=== PATIENT | female | born 1960 | race African-American/Black ===

== ENCOUNTER → 2019-06-14 | Day surgery (SDC) | payer MEDICARE ==
[~2019-06-14] MED LIST: ATORVASTATIN CA10 MG PO; CYMBALTA30 MG PO; FENTANYL CITRATE/PF 100MCG/2 ML INJ ONE; FLAGYL250 MG PO; GABAPENTIN300 MG PO; METOPROLOL SUCC25 MG PO; MIDAZOLAM HCL 2 MG/2 ML VIAL ONE; PANTOPRAZOLE SO40 MG PO; PROPOFOL IV EMULSION 10 MG/ML 20 ML VIAL ONE; TIZANIDINE HCL4 MG PO
--- OUTSIDE RECORDS SUMMARY | 2019-06-14 08:31 | XMS REPORT ---
Author Author [facility] Address Unknown Phone Unavailable Care Team Providers Care Order Administrator Name Role Phone Unavailable Unavailable Payers Payer Name Policy Type Policy Number Effective Date Expiration Date Problems This patient has no known problems. Allergies, Adverse Reactions, Alerts Allergy Name Allergy Type Status Severity Reaction(s) Onset Date Inactive Date Treating Clinician Comments Iodinated Contrast Media DA Active PA 2019-05-10 00:00:00 Heparin Analogues DA Active MO 2019-05-10 00:00:00 Iodinated Contrast- Oral and IV Dye DA Active PA 2019-03-08 00:00:00 Heparin Analogues DA Active MO 2018-10-14 00:00:00 Heparin Analogues DA Active MO 2018-09-27 00:00:00 Heparin Analogues DA Active MO 2018-07-12 00:00:00 No Known Drug Allergies DA Active U 2018-07-12 00:00:00 Heparin Analogues DA Active MO 2018-04-09 00:00:00 Heparin Analogues DA Active MO 2017-01-25 00:00:00 Medications This patient has no known medications. Encounters Start Date/Time End Date/Time Encounter Type Admission Type Attending Clinicians Care Facility Care Department Encounter ID 2019-06-04 09:40:44 Outpatient [facility] [id number] 2019-05-31 16:47:15 Outpatient [facility] 7503 2019-03-13 11:15:00 2019-03-13 11:15:00 Emergency E [facility] [place] [facility] Results Test Description Test Time Test Comments Text Results Atomic Results Result Comments COMPREHENSIVE METABOLIC PANEL 2019-05-10 17:59:00 SODIUM (test code=NA) 139 mEq/L 134-147 POTASSIUM (test code=K) 3.6 mEq/L 3.4-5.0 CHLORIDE (test code=CL) 106 mEq/L 100-108 CARBON DIOXIDE (test code=CO2) 30 mEq/L 21-33 ANION GAP (test code=GAP) 7 0-20 GLUCOSE (test code=GLU) 100 mg/dL 70-110 BLOOD UREA NITROGEN (test code=BUN) 17 mg/dL 7-18 GLOMERULAR FILTRATION RATE (test code=GFR) 55.6 90-95 Units of measure=ml/min/1.73 m2 CREATININE (test code=CREAT) 1.2 mg/dL 0.6-1.3 TOTAL PROTEIN (test code=PROT) 7.2 g/dL 6.4-8.2 ALBUMIN (test code=ALB) 3.90 g/dL 3.4-5.0 CALCIUM (test code=CA) 9.2 mg/dL 8.0-10.5 BILIRUBIN TOTAL (test code=BILT) 0.4 MG/DL <1.5 SGOT/AST (test code=AST) 17 IUnit/L 15-37 SGPT/ALT (test code=ALT) 30 IUnit/L 15-65 ALKALINE PHOSPHATASE TOTAL (test code=ALKP) 96 IUnit/L 20-125 - CT HEAD/BRAIN W/O [id number] 17:54:00 Name: CAMMY RICHARDSON [facility] : 1960 Age/S: 59 / F [address] [place] [address] Unit #: [id number] Loc: [place] [address] Phys: Denzel Chen CLINICAL RESEARCH TECHNICIAN Acct: [id number] Dis Date: Status: REG ER PHONE #: [phone] Exam Date: 05/10/2019 174 FAX #: [phone] Reason: posterior headache EXAMS: CPT CODE: [id number] CT HEAD/BRAIN W/O CONT 12917 Clinical Indication: Posterior headache. Comparison: Prior CT brain study dated 04/07/2018 TECHNIQUE: CT images were obtained from the foramen magnum to the vertex without the use of intravenous contrast on a multidetector CT. Coronal and sagittal reconstructions were obtained. CT imaging performed at this location utilizes radiation dose optimization techniques which include one or more of the following: -Automated exposure control -Adjustment of the mA and/or kV according to patient size -Use of iterative reconstruction technique CT Radiation Dose DLP 419.7 mGy-cm FINDINGS: BRAIN PARENCHYMA: There are normal fink-white interfaces, sulci and gyri. There are no focal mass lesions on this noncontrast head CT. There is no mass effect, midline shift or edema. There are no intra-axial or extra- axial fluid collections, intraventricular or intraparenchymal hemorrhage. The pineal, sellar, brainstem, cerebellum and skull base regions appear unremarkable. VENTRICLES: The lateral ventricles, third and fourth ventricles appear unremarkable. The basilar cisterns are normal. ORBITS, MASTOIDS AND PARANASAL SINUSES: The visualized orbits sinuses are unremarkable. Patchy mucosal thickening in the ethmoid air cells bilaterally. The mastoid air cells are clear. SKULL: There are no osseous abnormalities. If there is further concern for intracranial pathology or acute stroke, MRI of the brain may be performed for complete assessment. IMPRESSION: 1. Unre markable noncontrast head CT with no mass, hemorrhage or subacute stroke . 2. Bilateral ethmoid sinusitis. SL: MACKENZIE PAGE 1 Signed Report (CONTINUED) Name: CAMMY RICHARDSON [facility] : 1960 Age/S: 59 / F [address] [place] [address] Unit #: [id number] Loc: [place] [address] Phys: Denzel Chen NP Acct: [id number] Dis Date: Status: REG ER PHONE #: [phone] Exam Date: 05/10/2019 1741 FAX #: [phone] Reason: posterior headache EXAMS: CPT CODE: [id number] CT HEAD/BRAIN W/O CONT 44035 < Continued> at 4857 Reported and signed by: Madai Sen M.D. CC: Maria Del Carmen Roman MD; Denzel Chen NP Technologist:RT Chano(R)(CT) CTDI: DLP: Trnscb Date/Time: 05/10/2019 (9145) [email or web address] Orig Print D/T: S: 05/10/2019 (6441) PAGE 2 Signed Report COMPREHENSIVE METABOLIC [id number] 17:52:00* Test Item Value Reference Range Comments SODIUM (test code=NA) 139 mEq/L 134-147 POTASSIUM (test code=K) 3.6 mEq/L 3.4-5.0 CHLORIDE (test code=CL) 106 mEq/L 100-108 CARBON DIOXIDE (test code=CO2) 30 mEq/L 21-33 ANION GAP (test code=GAP) 7 0-20 GLUCOSE (test code=GLU) 100 mg/dL 70-110 BLOOD UREA NITROGEN (test code=BUN) 17 mg/dL 7-18 GLOMERULAR FILTRATION RATE (test code=GFR) 90-95 CREATININE (test code=CREAT) mg/dL 0.6-1.3 TOTAL PROTEIN (test code=PROT) g/dL 6.4-8.2 ALBUMIN (test code=ALB) g/dL 3.4-5.0 CALCIUM (test code=CA) 9.2 mg/dL 8.0-10.5 BILIRUBIN TOTAL (test code=BILT) MG/DL <1.5 SGOT/AST (test code=AST) IUnit/L 15-37 SGPT/ALT (test code=ALT) IUnit/L 15-65 ALKALINE PHOSPHATASE TOTAL (test code=ALKP) IUnit/L 20-125 CBC W/AUTO [id number] 17:50:00* Test Item Value Reference Range Comments WHITE BLOOD CELL (test code=WBC) 7.24 x10 3/uL 4.5-11.0 RED BLOOD CELL (test code=RBC) 3.96 x10 6/uL 3.54-5.02 HEMOGLOBIN (test code=HGB) 12.6 g/dL 11.0-15.0 HEMATOCRIT (test code=HCT) 39.4 % 33.0-45.0 MEAN CELL VOLUME (test code=MCV) 99.5 fL 81.0-99.0 MEAN CELL HGB (test code=MCH) 31.8 pg 27.0-33.0 MEAN CELL HGB CONCETRATION (test code=MCHC) 32.0 g/dL 33.0-37.0 RED CELL DISTRIBUTION WIDTH CV (test code=RDW) 13.2 % 11.5-14.5 RED CELL DISTRIBUTION WIDTH SD (test code=RDW-SD) 48.7 fL 37.0-54.0 PLATELET COUNT (test code=PLT) 350 x10 3/uL 150-400 MEAN PLATELET VOLUME (test code=MPV) 10.1 fL 7.0-9.0 NEUTROPHIL % (test code=NT%) 42.9 % 56.0-77.0 IMMATURE GRANULOCYTE % (test code=IG%) 0.1 % 0.0-2.0 LYMPHOCYTE % (test code=LY%) 45.7 % 14.0-32.0 MONOCYTE % (test code=MO%) 6.8 % 4.8-9.0 EOSINOPHIL % (test code=EO%) 4.1 % 0.3-3.7 BASOPHIL % (test code=BA%) 0.4 % 0.0-2.0 NUCLEATED RBC % (test code=NRBC%) 0.0 % 0-0 NEUTROPHIL # (test code=NT#) 3.10 x10 3/uL 2.0-7.6 IMMATURE GRANULOCYTE # (test code=IG#) 0.01 x10 3/uL 0.00-0.03 LYMPHOCYTE # (test code=LY#) 3.31 x10 3/uL 1.0-3.8 MONOCYTE # (test code=MO#) 0.49 x10 3/uL 0.1-0.8 EOSINOPHIL # (test code=EO#) 0.30 x10 3/uL 0.0-0.2 BASOPHIL # (test code=BA#) 0.03 x10 3/uL 0.0-0.2 NUCLEATED RBC # (test code=NRBC#) 0.00 x10 3/uL 0.0-0.1 MANUAL DIFF REQUIRED (test code=MDIFF) NO - XR CHEST 2 [id number] 17:20:00 FAX: Maria Del Carmen Roman [phone] [place]: St: PRE FAX: Denzel Chen NP [phone] Name: CAMMY RICHARDSON [facility] : 1960 Age/S: 59/F [address] [facility] Unit #: [id number] Loc: [place] [address] Phys: Denzel Chen NP Acct: [id number] Dis Date: Status: PRE ER PHONE #: [phone] Exam Date: 05/10/2019 1658 FAX #: [phone] Reason: cp EXAMS: CPT CODE: [id number] XR CHEST 2 V 98491 Clinical Indication: Chest pain. Comparison: 01/15/2019. Impression: Chest, 2 views. Mild left basilar atelectasis. No consolidation, pleural effusion, or pneumothorax. Cardiomediastinal silhouette is unremarkable. No acute osseous abnormality. SL: [id number] at 1720 Reported and signed by: Aydin Paz M.D. CC: Maria Del Carmen Roman MD; Denzel Chen NP Technologist: RT Gerry(Tabitha) Trncharity Patel te/Time/By: 05/10/2019 (9960) : By: [email or web address] Orig Print D/T: S: 05/09 (2201) PAGE 1 Signed Report - CT ABD PELVIS [id number] 13:58:00 Name: CAMMY RICHARDSON [facility] : 1960 Age/S: 58 / F [address] [place] [address] Unit #: [id number] Loc: [place] [address] Phys: Zehra Call MD Acct: [id number] Di s Date: Status: REG ER PHONE #: Exam Date: 03/08/2019 1333 FAX #: Reason: pain. rectal bleed EXAMS: CPT CODE: [id number] CT ABD PELVIS W/CONT 51464 CT ABDOMEN AND PELVIS WITH CONTRAST AND MULTIPLANAR REFORMATS 03/08/2019. INDICATION: Pain. Rectal bleeding. COMPARISON: Abdomen CT 12/16/2018. TECHNIQUE: Helical imaging was performed diaphragm through the symp hysis with axial and coronal reformations obtained. CT imaging performed a t this location utilizes radiation dose optimization techniques which incl ude one or more of the following: -Automated exposure control -Adjus tment of the mA and/or kV according to patient size -Use of iterative dary nstruction technique IV CONTRAST: 100 mL Isovue-300. GI CONTRAST: No ne. HUJ=732.47 mGy-cm FINDINGS: LOWER CHEST: Clear arash ng bases with mild dependent subsegmental atelectasis. Small calcified gr anuloma in the lingula. No pleural or pericardial effusion. No adenopath y. SOLID ORGANS: Diffuse fatty liver infiltration without cirrhosi s or enhancing lesion. At least 2 right stable hepatic cysts are noted measuring up to 10 mm in maximum diameter. At least 2 stable millimetr ic (<3 mm) hypodensities involving the left lateral liver segments 2/3, too small to characterize and probably representing tiny cysts and/or hemangiomas. The gallbladder, spleen, pancreas, adrenal glands and kidneys show no gross focal abnormality. BOWEL: Limited assessment without oral contrast. No pneumatosis or portal venous air. Colonic diverticulosis with no signs of diverticulitis. Moderate volume colonic fecal material diffusely. Normal caliber appendix without thickening or inflammation. Normal caliber small bowel. PERITONEUM: No free intraperitoneal fluid or air. RETROPERITONEUM: No adenopathy. The aorta is unremarkable. PELVIS: No pelvic adenopathy, mass or free fluid. Unremarkable bladder. No inguinal hernia or adenopathy. Absent uterus. No hemorrhoidal vein enlargement. PAGE 1 Signed Report (CONTINUED) Name: CAMMY RICHARDSON [facility] : 1960 Age/S: 58 / F [address] [place] [address] Unit #: [id number] Loc: [place] [address] Phys: Cj Call MD Acct: [id number] Dis Date: Status: REG ER PHONE #: [phone] Exam Date: 03/08/2019 1333 FAX #: [phone] Reason: pain. rectal bleed EXAMS: CPT CODE: [id number] CT ABD PELVIS W/CONT 55381 < Continued> MUSCULOSKELETAL: Moderate to severe lumbosacral facet arthrosis. No destructive bone lesions. IMPRESSION: 1. No acute CT explanation for the patient's clinical presentation. 2. Constipation and colonic diverticulosis with no active diverticular bleed identified. 3. Fatty liver with right liver cysts and stable millimetric left liver hypodensities, too small to characterize and likely benign. 4. Hysterectomy. ____ The [employer] (ACR) consensus guidelines for asymptomatic patients age 18 and older recommend no further follow-up imaging for: Liver lesions less than or equal to 0.5 cm. Cystic renal lesion less than 1 cm. Adrenal lesions less than or equal to 1 cm. SL: ERIC at 1358 Reported and signed by: Celso Londono M.D. CC: Technologist:RT Radha(Tabitha) CTDI: DLP: Trnscb Date/Time: 03/08/2019 (0253) [email or web address] Orig Print D/T: S: 03/08/2019 (8748) PAGE 2 Signed Report COMPREHENSIVE METABOLIC [id number] 12:22:00* Test Item Value Reference Range Comments SODIUM (test code=NA) 141 mEq/L 134-147 POTASSIUM (test code=K) 4.0 mEq/L 3.4-5.0 CHLORIDE (test code=CL) 109 mEq/L 100-108 CARBON DIOXIDE (test code=CO2) 29 mEq/L 21-33 ANION GAP (test code=GAP) 7 0-20 GLUCOSE (test code=GLU) 95 mg/dL 70-110 BLOOD UREA NITROGEN (test code=BUN) 16 mg/dL 7-18 GLOMERULAR FILTRATION RATE (test code=GFR) 61.7 90-95 Units of measure=ml/min/1.73 m2 CREATININE (test code=CREAT) 1.1 mg/dL 0.6-1.3 TOTAL PROTEIN (test code=PROT) 7.7 g/dL 6.4-8.2 ALBUMIN (test code=ALB) 3.90 g/dL 3.4-5.0 CALCIUM (test code=CA) 8.9 mg/dL 8.0-10.5 BILIRUBIN TOTAL (test code=BILT) 0.6 MG/DL <1.5 SGOT/AST (test code=AST) 22 IUnit/L 15-37 SGPT/ALT (test code=ALT) 37 IUnit/L 15-65 ALKALINE PHOSPHATASE TOTAL (test code=ALKP) 86 IUnit/L 20-125 [id number] 12:22:00* Test Item Value Reference Range Comments LIPASE (test code=LIP) 55 IUnit/L 73-393 HCG SERUM [id number] 12:22:00* Test Item Value Reference Range Comments HCG SERUM QUAL (test code=HCGQL) SERUM NEGATIVE NEGATIVE COMPREHENSIVE METABOLIC [id number] 12:16:00* Test Item Value Reference Range Comments SODIUM (test code=NA) 141 mEq/L 134-147 POTASSIUM (test code=K) 4.0 mEq/L 3.4-5.0 CHLORIDE (test code=CL) 109 mEq/L 100-108 CARBON DIOXIDE (test code=CO2) 29 mEq/L 21-33 ANION GAP (test code=GAP) 7 0-20 GLUCOSE (test code=GLU) 95 mg/dL 70-110 BLOOD UREA NITROGEN (test code=BUN) 16 mg/dL 7-18 GLOMERULAR FILTRATION RATE (test code=GFR) 90-95 CREATININE (test code=CREAT) mg/dL 0.6-1.3 TOTAL PROTEIN (test code=PROT) g/dL 6.4-8.2 ALBUMIN (test code=ALB) g/dL 3.4-5.0 CALCIUM (test code=CA) 8.9 mg/dL 8.0-10.5 BILIRUBIN TOTAL (test code=BILT) MG/DL <1.5 SGOT/AST (test code=AST) IUnit/L 15-37 SGPT/ALT (test code=ALT) IUnit/L 15-65 ALKALINE PHOSPHATASE TOTAL (test code=ALKP) IUnit/L 20-125 [id number] 12:16:00* Test Item Value Reference Range Comments LIPASE (test code=LIP) 55 IUnit/L 73-393 HCG SERUM [id number] 12:16:00* Test Item Value Reference Range Comments HCG SERUM QUAL (test code=HCGQL) SERUM NEGATIVE NEGATIVE COMPREHENSIVE METABOLIC [id number] 12:14:00* Test Item Value Reference Range Comments SODIUM (test code=NA) mEq/L 134-147 POTASSIUM (test code=K) mEq/L 3.4-5.0 CHLORIDE (test code=CL) mEq/L 100-108 CARBON DIOXIDE (test code=CO2) mEq/L 21-33 ANION GAP (test code=GAP) 0-20 GLUCOSE (test code=GLU) mg/dL 70-110 BLOOD UREA NITROGEN (test code=BUN) mg/dL 7-18 GLOMERULAR FILTRATION RATE (test code=GFR) 90-95 CREATININE (test code=CREAT) mg/dL 0.6-1.3 TOTAL PROTEIN (test code=PROT) g/dL 6.4-8.2 ALBUMIN (test code=ALB) g/dL 3.4-5.0 CALCIUM (test code=CA) mg/dL 8.0-10.5 BILIRUBIN TOTAL (test code=BILT) MG/DL <1.5 SGOT/AST (test code=AST) IUnit/L 15-37 SGPT/ALT (test code=ALT) IUnit/L 15-65 ALKALINE PHOSPHATASE TOTAL (test code=ALKP) IUnit/L 20-125 [id number] 12:14:00* Test Item Value Reference Range Comments LIPASE (test code=LIP) IUnit/L 73-393 HCG SERUM [id number] 12:14:00* Test Item Value Reference Range Comments HCG SERUM QUAL (test code=HCGQL) SERUM NEGATIVE NEGATIVE CBC W/AUTO [id number] 12:06:00* Test Item Value Reference Range Comments WHITE BLOOD CELL (test code=WBC) 4.86 x10 3/uL 4.5-11.0 RED BLOOD CELL (test code=RBC) 4.15 x10 6/uL 3.54-5.02 HEMOGLOBIN (test code=HGB) 13.2 g/dL 11.0-15.0 HEMATOCRIT (test code=HCT) 40.5 % 33.0-45.0 MEAN CELL VOLUME (test code=MCV) 97.6 fL 81.0-99.0 MEAN CELL HGB (test code=MCH) 31.8 pg 27.0-33.0 MEAN CELL HGB CONCETRATION (test code=MCHC) 32.6 g/dL 33.0-37.0 RED CELL DISTRIBUTION WIDTH CV (test code=RDW) 13.3 % 11.5-14.5 RED CELL DISTRIBUTION WIDTH SD (test code=RDW-SD) 48.3 fL 37.0-54.0 PLATELET COUNT (test code=PLT) 408 x10 3/uL 150-400 MEAN PLATELET VOLUME (test code=MPV) 9.8 fL 7.0-9.0 NEUTROPHIL % (test code=NT%) 33.8 % 56.0-77.0 IMMATURE GRANULOCYTE % (test code=IG%) 0.2 % 0.0-2.0 LYMPHOCYTE % (test code=LY%) 54.5 % 14.0-32.0 MONOCYTE % (test code=MO%) 6.6 % 4.8-9.0 EOSINOPHIL % (test code=EO%) 4.3 % 0.3-3.7 BASOPHIL % (test code=BA%) 0.6 % 0.0-2.0 NUCLEATED RBC % (test code=NRBC%) 0.0 % 0-0 NEUTROPHIL # (test code=NT#) 1.64 x10 3/uL 2.0-7.6 IMMATURE GRANULOCYTE # (test code=IG#) 0.01 x10 3/uL 0.00-0.03 LYMPHOCYTE # (test code=LY#) 2.65 x10 3/uL 1.0-3.8 MONOCYTE # (test code=MO#) 0.32 x10 3/uL 0.1-0.8 EOSINOPHIL # (test code=EO#) 0.21 x10 3/uL 0.0-0.2 BASOPHIL # (test code=BA#) 0.03 x10 3/uL 0.0-0.2 NUCLEATED RBC # (test code=NRBC#) 0.00 x10 3/uL 0.0-0.1 MANUAL DIFF REQUIRED (test code=MDIFF) NO URINALYSIS [id number] 12:04:00* Test Item Value Reference Range Comments UA COLOR (test code=COLU) YELLOW YEL/STRAW UA APPEARANCE (test code=APPU) SL CLOUDY CLEAR UA GLUCOSE DIPSTICK (test code=DGLUU) NEGATIVE NEGATIVE UA BILIRUBIN DIPSTICK (test code=BILU) NEGATIVE NEGATIVE UA KETONE DIPSTICK (test code=KETU) NEGATIVE NEGATIVE UA SPECIFIC GRAVITY (test code=SGU) 1.026 1.005-1.030 UA BLOOD DIPSTICK (test code=TIERRA) NEGATIVE NEGATIVE UA PH DIPSTICK (test code=EVANGELINA) 5.0 5.0-7.0 UA PROTEIN DIPSTICK (test code=PROU) NEGATIVE NEGATIVE UA UROBILINIOGEN DIPSTICK (test code=URO) 0.2 mg/dL 0.2-1.0 UA NITRITE DIPSTICK (test code=MICHAEL) NEGATIVE NEGATIVE UA LEUKOCYTE ESTERASE DIPSTICK (test code=LEUU) NEGATIVE NEGATIVE UA RBC (test code=RBCU) 0-3 RBC/HPF 0-3 UA WBC NO REFLEX (test code=WBCUCL) 4-9 WBC/HPF 0-3 UA BACTERIA (test code=BACU) 4+ /HPF NONE SEEN UA SQUAMOUS CELLS (test code=SQU) 11-25 /HPF NONE SEEN UA MUCUS (test code=MUCU) TRACE /LPF NONE SEEN URINALYSIS [id number] 23:50:00* Test Item Value Reference Range Comments UA COLOR (test code=COLU) YELLOW UA APPEARANCE (test code=APPU) CLEAR UA GLUCOSE DIPSTICK (test code=DGLUU) NORMAL mg/dl NORMAL UA BILIRUBIN DIPSTICK (test code=BILU) NEGATIVE mg/dL NEGATIVE UA KETONE DIPSTICK (test code=KETU) NEGATIVE mg/dl NEGATIVE UA SPECIFIC GRAVITY (test code=SGU) 1.025 1.000-1.030 UA BLOOD DIPSTICK (test code=TIERRA) 10 Guevara/micL Guevara/micL NEGATIVE UA PH DIPSTICK (test code=EVANGELINA) 6.0 5.0-9.0 UA PROTEIN DIPSTICK (test code=PROU) 15 mg/dl mg/dl NEGATIVE UA UROBILINIOGEN DIPSTICK (test code=URO) NORMAL mg/dl NORMAL UA NITRITE DIPSTICK (test code=MICHAEL) NEGATIVE NEGATIVE UA LEUKOCYTE ESTERASE DIPSTICK (test code=LEUU) NEGATIVE Hiral/micL NEGATIVE UA WBC (test code=WBCU) 0-3 WBC/HPF NONE UA RBC (test code=RBCU) 3-5 RBC/HPF 0-3 UA EPITHELIAL CELLS (test code=EPIU) 2-5 EPI/HPF 0-3 UA BACTERIA (test code=BACU) FEW NONE UA CALCIUM OXALATE CRYSTALS (test code=CAOXU) FEW URINALYSIS [id number] 23:42:00* Test Item Value Reference Range Comments UA COLOR (test code=COLU) YELLOW UA APPEARANCE (test code=APPU) CLEAR UA GLUCOSE DIPSTICK (test code=DGLUU) NORMAL mg/dl NORMAL UA BILIRUBIN DIPSTICK (test code=BILU) NEGATIVE mg/dL NEGATIVE UA KETONE DIPSTICK (test code=KETU) NEGATIVE mg/dl NEGATIVE UA SPECIFIC GRAVITY (test code=SGU) 1.025 1.000-1.030 UA BLOOD DIPSTICK (test code=TIERRA) 10 Guevara/micL Guevara/micL NEGATIVE UA PH DIPSTICK (test code=EVANGELINA) 6.0 5.0-9.0 UA PROTEIN DIPSTICK (test code=PROU) 15 mg/dl mg/dl NEGATIVE UA UROBILINIOGEN DIPSTICK (test code=URO) NORMAL mg/dl NORMAL UA NITRITE DIPSTICK (test code=MICHAEL) NEGATIVE NEGATIVE UA LEUKOCYTE ESTERASE DIPSTICK (test code=LEUU) NEGATIVE Hiral/micL NEGATIVE UA WBC (test code=WBCU) WBC/HPF NONE UA RBC (test code=RBCU) RBC/HPF 0-3 UA EPITHELIAL CELLS (test code=EPIU) EPI/HPF 0-3 UA BACTERIA (test code=BACU) NONE - XR CHEST 2 [id number] 23:32:00 FAX: Fransico Graff MD [place]: St: [facility] FAX: Gianna Tuttle MD [phone] FAX: Candido Adam [phone] Name: CAMMY RICHARDSON [facility] : 1960 Age/S: 58/F [address] Unit #: [id number] Loc: E.EXP [place], [place] Phys: Candido Brewster CLINICAL RESEARCH TECHNICIAN [address] Acct: [id number] Dis Date: Status: REG ER PH ONE #: [phone] Exam Date: 01/15/2019 2323 FAX #: [phone] Reason: cough EXAMS: CPT CODE: [id number] XR CHEST 2 V 26412 AFTER HOURS SE RVICE ON: 01/15/2019 11:31 PM Chest, PA and Lateral Location Code M12 History: cough Findings: There are no infiltrates. There is a subcentimeter pulmonary nodule in the left lung base which is stable from prior examinations including . There are no pleural effusions. There is no pneumothorax. Card iac silhouette and mediastinum appear within normal limits. Impression: No active pulmonary findings. at 2332 Reported and signed b y: Araceli Marcelino M.D. CC: Farnsico Graff MD; Gianna dubose MD; Candido Brewster NP Technologist: [facility] Date/Time/By: 01/15/2019 (4022) : By: [email or web address] PAGE 1 Signed Report FAX: Fransico Graff MD [place]: St: REG FAX: Gianna Tuttle MD [phone] FAX: Candido Adam ----- Name: CAMMY RICHARDSON [facility] : 1960 Age/S: 58/F [address] [facility] [address] Unit #: [id number] Loc: E.EXP [place], [place] Phys: Candido Rivas MUMTAZ [address] Acct: [id number] Dis Date: Status: REG ER PHONE #: [phone] Exam Date: 01/15/2019 2323 FAX #: [phone] Reason: cough EXAM S: CPT CODE: [id number] XR [facility]AL[address] 2 V 59122 <Continued> Orig Print D/T: S: 01/15/2019 (9945) PAGE 2 Signed Report - US ABDOMEN [id number] 10:05:00 FAX: iGanna Tuttle MD [phone] [place]: St: [facility] FAX: Skylar Smith MD [phone] Name: CAMMY RICHARDSON [facility] : 1960 Age/S: 58/F [address] [facility] [address] Unit #: [id number] Loc: E.ERS2 [place], [place]: [place] [address] Acct: [id number] Dis Date: Status: REG ER PHONE #: [phone] Exam Date: 12/16/2018 0959 FAX #: [phone] Reason: Abdominal Pain EXAMS: CPT CODE: [id number] US ABDOMEN LTD [id number] EXAM: RIGHT UPPER QUADRANT ABDOMINAL ULTRASOUND IN DICATION: Abdominal Pain COMPARISON: None available TECHNIQUE: Routine grayscale and color Doppler ultrasound examination of t he right upper quadrant was obtained. FINDINGS: The liver i s normal in size and measures 14.2 cm. There is normal echogenicity and ec hotexture of the liver parenchyma. No intrahepatic biliary ductal dilatat ion. The common bile duct measures 0.3 cm. The main portal vein i s normal in size with normal hepatopedal flow. The gallbladder is normal in size. No gallstones or pericholecystic fluid is identified. Th e gallbladder wall thickness is normal measuring 0.2 cm. Negative Bosch sign. The visualized pancreas is normal. The right k idney measures 8.8 x 3.4 x 5.4 cm and is normal in appearance with normal cortical thickness and cortical echogenicity. No hydronephrosis or nephro lithiasis. Abdominal aorta is normal in course and caliber. The I VC is normal. No free fluid or pleural effusion is identified. IMPRESSION: Normal sonographic appearance of the right upper quadrant. LOCATION: A1 Electronically S igned by Cony Gibbs on 12/16/2018 at 100 5 Reported and signed by: Shama Gibbs M.D. CC: Gianna Tuttle MD; Skylar Smith MD Technologis t: STEVE OLIV[address]ES [address] Date/Time/By: 12/16/2018 (1005) : By: [email or web address] PAGE 1 Natalie d Report FAX: Gianna Tuttle MD [phone] [place]: St: REG FAX: Skylar Smith MD [phone] Name: [facility] : 1960 Age/S: 58/F [address] [facility] Unit #: [id number] Loc: E.ERS[address] [place] [address] [place]: [place] [id number] Acct: [id number] Dis Date: Status: REG ER PHONE #: [phone] Exam Date: 12/16/2018 0959 FAX #: Reason: Abdominal Pain EXAMS: CPT [place]: [id number] [address] <Continued> Orig Print D/T: S: 12/16/2018 (4821) PAGE 2 Signed Report - CT ABD PELVIS [id number] 10:04:00 FAX: Gianna Tuttle MD [phone] [place]: St: REG FAX: Skylar Smith MD [phone] Name: CAMMY RICHARDSON [facility] : 1960 Age/S: 58/F [address] [facility] Unit: [id number] Loc: [address] Phys: [place] [address] Acct: [id number] Dis Date: Status: REG ER PHONE #: [phone] Exam Date: 12/16/2018 0956 FAX #: [phone] Reason: LLQ PAIN AND EPIGASTRIC PAIN EXAMS: CPT CODE: [id number] CT ABD PELVIS W/CONT 59076 EXAM: CT ABDOMEN AND PELVIS WITH CONTRAST. INDICATION: LLQ PAIN AND EPIGASTRIC PAIN COMPARISON: September 22, 2018 TECHNIQUE: Axial CT imaging of the abdomen and pelvis was obtained after the administration of intravenous contrast. Coronal and sagittal reformatted images were submitted for review. IV contrast: 100 cc of Isovu e-300 DLP: 737.06 mGy-cm FINDINGS: The heart size is normal. The lung bases are clear. No pericardial or pleural effusion is identified. The liver, spleen, gallbladder, pancreas, and adrenal glands is unremarkable. No focal liver lesions are identified. No intrah epatic biliary duct dilatation. The main portal vein is patent and normal in size. The kidneys are normal in size and appearance. No hydronephrosis or nephrolithiasis is identified. The urinary bladder is decompressed. The stomach, small bowel, and appendix are normal in appearance. There are a few diverticula noted throughout the large bowel with no pericolonic fat stranding or bowel wall thickening. No bowel obstruction is identified. No lymphadenopathy is identified in the abdomen or pelvis. No free fluid or free air. The IVC is normal. The abdominal aorta is normal in course and caliber. No acute os seous abnormality is identified. IMPRESSION: No acute abnormality in the abdomen or pelvis. Normal appendix. Mild dive rticulosis with no evidence of acute diverticulitis. LOCATION: B2 This CT exam was performed according to our departmental d ose PAGE 1 Signed Report (CONTINUE D) FAX: Gianna Tuttle MD [phone] [place]: St: [facility] FAX: Skylar Smith MD [phone] Name: CAMMY RICHARDSON [facility] : 1960 Age/S: 58/F [address] [facility] Unit: [id number] Loc: [address] Phys: [place] [address] Acct: [id number] Dis Date: Status: REG ER PHONE #: [phone] Exam Date: 12/16/2018 0956 FAX #: [phone] Reason: LLQ PAIN AND EPIGAS TRIC PAIN EXAMS: CPT CODE: [id number] CT ABD PELVIS W/CONT 60216 <Continued> optimization program, which includes automated exposure control, adjustment of the mA and or kV according to patient size and/or use of iterative reconstruction technique. at 1004 Reported and signed by: Shama Gibbs M.D. CC: Gianna Tuttle MD; Skylar Smith MD Technologist: FAISAL VAZQUEZ; VIOLA [facility]m: 12/16/2018 (1004) [email or web address] Orig Print D/T: S: 12/16/2018 (1007 PAGE 2 Signed Report PROTHROMBIN [id number] 09:41:00* Test Item Value Reference Range Comments PROTHROMBIN TIME PATIENT (test code=PTP) 11.5 SECONDS 9.9-12.8 INTERNATIONAL NORMAL RATIO (test code=INR) 1.0 0.89-1.14 THE INR IS TO BE USED ONLY FOR MONITORING ORAL ANTICOAGULANTTHERAPY. THE FOLLOWING ARE SUGGESTED RANGES FROM THEAMERICAN COLLEGE OF CHEST PHYSICIANS:INDICATION INR VALUEPROPHYLAXIS OF VENOUS THROMBOSIS (ORTHOPEDIC SURGERY) 2.0 - 3.0PROPHYLAXIS OF VENOUS THROMBOSIS (OTHER THAN HIGH-RISK SURGERY) 2.0 - 3.0TREATMENT OF DEEP VEIN THROMBOSIS OR PULMONARY EMBOLISM 2.0 - 3.0PREVENTION OF SYSTEMIC EMBOLISM TISSUE HEART VALVES 2.0 - 3.0 ACUTE MYOCARDIAL INFARCTION (TO PREVENT SYSTEMIC EMBOLISM) 2.0 - 3.0 ACUTE MYOCARDIAL INFARCTION (TO PREVENT RECURRENT INFARCT) 2.5 - 3.0 VALVULAR HEART DISEASE 2.0 - 3.0 ATRIAL FIBRILATION 2.0 - 3.0BILEAFLET MECHANICAL VALVE IN AORTIC POSITION 2.0 - 3.0MECHANICAL PROSTHETIC VALVES (HIGH RISK) 2.5 - 3.5PRESENCE OF LUPUS ANTICOAGULANT OR ANTIPHOSPHOLIPID ANTIBODIES 2.5 - 3.5 Specimen comments: Clean CatchIs patient on anticoagulants? NTHROMBOPLASTIN TIME [id number] 09:41:00* Test Item Value Reference Range Comments THROMBOPLASTIN TIME PARTIAL (test code=PTT) 38.10 SECONDS 25.86-36.07 [facility] Therapeutic Range - APTT of 55.8-85.4 secondscorrelates with plasma heparin concentration of 0.2-0.4 u/mL New range effective - 04/18/2016 Specimen comments: Clean CatchIs patient on anticoagulants? NBASIC METABOLIC [id number] 09:39:00* Test Item Value Reference Range Comments SODIUM (test code=NA) 140 mmol/l 134.0-147.0 POTASSIUM (test code=K) 3.9 mmol/L 3.6-5.2 CHLORIDE (test code=CL) 104 mmol/l 98.0-107.0 CARBON DIOXIDE (test code=CO2) 27.2 mmol/l 21.0-33.0 ANION GAP (test code=GAP) 12.7 0-20 GLUCOSE (test code=GLU) 101 mg/dl 70.0-110.0 BLOOD UREA NITROGEN (test code=BUN) 10 mg/dl 7.0-18.0 CREATININE (test code=CREAT) 1.04 mg/dL 0.60-1.30 GFR NON BLACK (test code=GFRNONBLACK) 58 mL/min 90-95 GFR BLACK (test code=GFRBLACK) 70 mL/min 109-115 CALCIUM (test code=CA) 8.9 mg/dl 8.0-10.5 Specimen comments: NuLabelHEPATIC FUNCTION PANEL [id number] 09:39:00* Test Item Value Reference Range Comments TOTAL PROTEIN (test code=PROT) 7.8 gm/dL 6.4-8.2 ALBUMIN (test code=ALB) 4.2 gm/dl 3.2-4.7 BILIRUBIN TOTAL (test code=BILT) 0.4 mg/dl 0.0-1.0 BILIRUBIN DIRECT (test code=BILD) 0.1 mg/dl 0.0-0.3 SGOT/AST (test code=AST) 22 Units/L 15.0-37.0 SGPT/ALT (test code=ALT) 32 Units/L 12.0-78.0 ALKALINE PHOSPHATASE TOTAL (test code=ALKP) 100 Units/L 50.0-136.0 Specimen comments: [id number] 09:39:00* Test Item Value Reference Range Comments LIPASE (test code=LIP) 82 Units/L 65.0-230.0 Specimen comments: NuLabelAhmagVGLZFISC-[id number] 09:39:00* Test Item Value Reference Range Comments TROPONIN-I (test code=TROPI) <0.02 NG/ML 0.00-0.06 REFERENCE RANGE TROPONIN I HEALTHY INDIVIDUALS: <0.06 ng/mL R/O ISCHEMIA: 0.07 - 0.60 ng/mL CUT-OFF RANGE FOR AMI: 0.60 - 1.5 ng/mL Specimen comments: NuLabelPOC LACTIC [id number] 09:38:00* Test Item Value Reference Range Comments POC LACTIC ACID (test code=POCLAC) 1.1 mmol/L 0.4-2.2 URINALYSIS [id number] 09:27:00* Test Item Value Reference Range Comments UA COLOR (test code=COLU) YELLOW UA APPEARANCE (test code=APPU) SLHZY UA GLUCOSE DIPSTICK (test code=DGLUU) NORMAL mg/dl NORMAL UA BILIRUBIN DIPSTICK (test code=BILU) NEGATIVE mg/dL NEGATIVE UA KETONE DIPSTICK (test code=KETU) NEGATIVE mg/dl NEGATIVE UA SPECIFIC GRAVITY (test code=SGU) 1.030 1.000-1.030 UA BLOOD DIPSTICK (test code=TIERRA) 10 Guevara/micL Guevara/micL NEGATIVE UA PH DIPSTICK (test code=EVANGELINA) 5.0 5.0-9.0 UA PROTEIN DIPSTICK (test code=PROU) NEGATIVE mg/dl NEGATIVE UA UROBILINIOGEN DIPSTICK (test code=URO) NORMAL mg/dl NORMAL UA NITRITE DIPSTICK (test code=MICHAEL) NEGATIVE NEGATIVE UA LEUKOCYTE ESTERASE DIPSTICK (test code=LEUU) NEGATIVE Hiral/micL NEGATIVE UA WBC (test code=WBCU) 4-9 WBC/HPF NONE UA RBC (test code=RBCU) 3-5 RBC/HPF 0-3 UA EPITHELIAL CELLS (test code=EPIU) 2-5 EPI/HPF 0-3 UA BACTERIA (test code=BACU) FEW NONE CBC W/AUTO [id number] 09:20:00* Test Item Value Reference Range Comments WHITE BLOOD CELL (test code=WBC) 5.5 K/mm3 4.5-11.0 RED BLOOD CELL (test code=RBC) 4.41 M/mm3 3.80-5.20 HEMOGLOBIN (test code=HGB) 13.9 gm/dL 12.0-16.0 HEMATOCRIT (test code=HCT) 42.8 % 36.0-48.0 MEAN CELL VOLUME (test code=MCV) 97.1 UM3 82.0-99.0 MEAN CELL HGB (test code=MCH) 31.5 UUG 25.5-32.5 MEAN CELL HGB CONCETRATION (test code=MCHC) 32.5 gm/dL 29.0-35.5 RED CELL DISTRIBUTION WIDTH (test code=RDW) 13.4 % 11.5-15.0 RED CELL DISTRIBUTION WIDTH SD (test code=RDW-SD) 48.0 fL 34.8-50.2 PLATELET COUNT (test code=PLT) 372 K/mm3 150-400 MEAN PLATELET VOLUME (test code=MPV) 10.1 fl 7.4-10.4 NEUTROPHIL % (test code=NT%) 36.1 % 49.0-76.0 IMMATURE GRANULOCYTE % (test code=IG%) 0.0 % 0.0-0.4 LYMPHOCYTE % (test code=LY%) 48.6 % 23.0-38.0 MONOCYTE % (test code=MO%) 9.0 % 1.0-10.0 EOSINOPHIL % (test code=EO%) 5.4 % 1.0-5.0 BASOPHIL % (test code=BA%) 0.9 % 0.0-1.0 NEUTROPHIL # (test code=NT#) 2.0 K/mm3 2.4-6.3 IMMATURE GRANULOCYTE # (test code=IG#) 0.00 x10 3/uL 0.00-0.07 LYMPHOCYTE # (test code=LY#) 2.7 K/mm3 1.2-4.0 MONOCYTE # (test code=MO#) 0.5 K/mm3 0.0-0.6 EOSINOPHIL # (test code=EO#) 0.3 K/MM3 0.0-0.7 BASOPHIL # (test code=BA#) 0.1 K/mm3 0.0-0.2 URINALYSIS [id number] 09:15:00* Test Item Value Reference Range Comments UA COLOR (test code=COLU) YELLOW UA APPEARANCE (test code=APPU) SLHZY UA GLUCOSE DIPSTICK (test code=DGLUU) NORMAL mg/dl NORMAL UA BILIRUBIN DIPSTICK (test code=BILU) NEGATIVE mg/dL NEGATIVE UA KETONE DIPSTICK (test code=KETU) NEGATIVE mg/dl NEGATIVE UA SPECIFIC GRAVITY (test code=SGU) 1.030 1.000-1.030 UA BLOOD DIPSTICK (test code=TIERRA) 10 Guevara/micL Guevara/micL NEGATIVE UA PH DIPSTICK (test code=EVANGELINA) 5.0 5.0-9.0 UA PROTEIN DIPSTICK (test code=PROU) NEGATIVE mg/dl NEGATIVE UA UROBILINIOGEN DIPSTICK (test code=URO) NORMAL mg/dl NORMAL UA NITRITE DIPSTICK (test code=MICHAEL) NEGATIVE NEGATIVE UA LEUKOCYTE ESTERASE DIPSTICK (test code=LEUU) NEGATIVE Hiral/micL NEGATIVE UA WBC (test code=WBCU) WBC/HPF NONE UA RBC (test code=RBCU) RBC/HPF 0-3 UA EPITHELIAL CELLS (test code=EPIU) EPI/HPF 0-3 UA BACTERIA (test code=BACU) NONE - XR C-SPINE 4-5 [id number] 13:30:00 FAX: Pawan Mcrae [phone] [place]: St: REG FAX: Gianna Tuttle MD [phone] FAX: Mi Garcia MD Name: CAMMY RICHARDSON [facility] : 1960 Age/S: 58/F [address] [facility] Unit #: [id number] Loc: [address] Phys: Pawan Mcrae [address] Acct: [id number] Dis Date: Status: REG ER PH ONE #: [phone] Exam Date: 10/14/2018 1325 FAX #: [phone] Reason: neck pain EXAMS: CPT CODE: [id number] XR C-SPINE 4-5 V 81034 Cervic al spine 3 views Location code: B2 CLINICAL INDICATI ON: Neck pain FINDINGS: There is normal alignment of the cervical spine without fractures or subluxations. There is straightening of the cer vical lordosis. The vertebral body heights are unremarkable. Moderate dis c space narrowing at C6-7, with mild uncinate arthrosis. Oblique views demonstrate mild foraminal stenosis in the lower cervical spine. The prevertebral soft tissues and atlanto-dental interspace are normal. The facet joint, spinolaminar line and spinous process alignment is yuan l. OPINION: 1. Mild straightening of the cervical lordosis may reflect a sprain. 2. Moderate spondylosis at C6-7. at 133 Reported and signed by: Erickson Sofia M.D. CC: Pawan BAHENA; Gianna Tuttle MD; Mi Granados MD Technologist: CARLOS SAAVEDRA [facility] Date/Time/By: 10/14/2018 (1567) : By: [email or web address] PAGE 1 Signed Report FAX: Pawan Mcrae [phone] [place]: St: [facility] FAX: Gianna Tuttle MD [phone] FAX: Radha Garcia MD Name: DEBRACAMMY [facility] : 1960 Age/S: 58/F [address] [facility] Unit #: [id number] Loc: [address] Phys: Pawan Mcrae [address] Acct: [id number] Dis Date: Status: REG ER PHONE #: [phone] Exam Date: 10/14/2018 1325 FAX #: [phone] Reason: neck pain EXAMS: CPT CODE: [id number] XR C-SPINE 4-5 V 41957 < Continued> Orig Print D/T: S: 10/14/2018 (0604) PAGE 2 Signed Report COMPREHENSIVE METABOLIC [id number] 12:15:00* Test Item Value Reference Range Comments SODIUM (test code=NA) 143 mmol/l 134.0-147.0 POTASSIUM (test code=K) 3.7 mmol/L 3.6-5.2 CHLORIDE (test code=CL) 106 mmol/l 98.0-107.0 CARBON DIOXIDE (test code=CO2) 29.6 mmol/l 21.0-33.0 ANION GAP (test code=GAP) 11.1 0-20 GLUCOSE (test code=GLU) 101 mg/dl 70.0-110.0 BLOOD UREA NITROGEN (test code=BUN) 13 mg/dl 7.0-18.0 CREATININE (test code=CREAT) 1.04 mg/dL 0.60-1.30 GFR NON BLACK (test code=GFRNONBLACK) 58 mL/min 90-95 GFR BLACK (test code=GFRBLACK) 70 mL/min 109-115 TOTAL PROTEIN (test code=PROT) 7.6 gm/dL 6.4-8.2 ALBUMIN (test code=ALB) 3.8 gm/dl 3.2-4.7 CALCIUM (test code=CA) 9.2 mg/dl 8.0-10.5 BILIRUBIN TOTAL (test code=BILT) 0.5 mg/dl 0.0-1.0 SGOT/AST (test code=AST) 17 Units/L 15.0-37.0 SGPT/ALT (test code=ALT) 30 Units/L 12.0-78.0 ALKALINE PHOSPHATASE TOTAL (test code=ALKP) 99 Units/L 50.0-136.0 B-TYPE NATRIURETIC [id number] 12:15:00* Test Item Value Reference Range Comments B-TYPE NATRIURETIC PEPTIDE (test code=BNP) 7.7 PG/ML 5-100 CARDIAC ENZYMES [id number] 12:15:00* Test Item Value Reference Range Comments CREATINE KINASE (CK) (test code=CK) 198 Units/L 26-192 TROPONIN-I (test code=TROPI) <0.02 NG/ML 0.00-0.06 REFERENCE RANGE TROPONIN I HEALTHY INDIVIDUALS: <0.06 ng/mL R/O ISCHEMIA: 0.07 - 0.60 ng/mL CUT-OFF RANGE FOR AMI: 0.60 - 1.5 ng/mL COMPREHENSIVE METABOLIC [id number] 12:01:00* Test Item Value Reference Range Comments SODIUM (test code=NA) 143 mmol/l 134.0-147.0 POTASSIUM (test code=K) 3.7 mmol/L 3.6-5.2 CHLORIDE (test code=CL) 106 mmol/l 98.0-107.0 CARBON DIOXIDE (test code=CO2) 29.6 mmol/l 21.0-33.0 ANION GAP (test code=GAP) 11.1 0-20 GLUCOSE (test code=GLU) 101 mg/dl 70.0-110.0 BLOOD UREA NITROGEN (test code=BUN) 13 mg/dl 7.0-18.0 CREATININE (test code=CREAT) 1.04 mg/dL 0.60-1.30 GFR NON BLACK (test code=GFRNONBLACK) 58 mL/min 90-95 GFR BLACK (test code=GFRBLACK) 70 mL/min 109-115 TOTAL PROTEIN (test code=PROT) 7.6 gm/dL 6.4-8.2 ALBUMIN (test code=ALB) 3.8 gm/dl 3.2-4.7 CALCIUM (test code=CA) 9.2 mg/dl 8.0-10.5 BILIRUBIN TOTAL (test code=BILT) 0.5 mg/dl 0.0-1.0 SGOT/AST (test code=AST) 17 Units/L 15.0-37.0 SGPT/ALT (test code=ALT) 30 Units/L 12.0-78.0 ALKALINE PHOSPHATASE TOTAL (test code=ALKP) 99 Units/L 50.0-136.0 B-TYPE NATRIURETIC [id number] 12:01:00* Test Item Value Reference Range Comments B-TYPE NATRIURETIC PEPTIDE (test code=BNP) PG/ML 5-100 CARDIAC ENZYMES [id number] 12:01:00* Test Item Value Reference Range Comments CREATINE KINASE (CK) (test code=CK) 198 Units/L 26-192 TROPONIN-I (test code=TROPI) <0.02 NG/ML 0.00-0.06 REFERENCE RANGE TROPONIN I HEALTHY INDIVIDUALS: <0.06 ng/mL R/O ISCHEMIA: 0.07 - 0.60 ng/mL CUT-OFF RANGE FOR AMI: 0.60 - 1.5 ng/mL - XR CHEST 1 [id number] 12:01:00 FAX: Pawan Mcrae [phone] [place]: St: REG FAX: Gianna Tuttle MD [phone] FAX: Mi Garcia MD Name: CAMMY RICHARDSON [facility] : 1960 Age/S: 58/F [address] [facility] Unit #: [id number] Loc: [address] [place] [address] Phys: Pawan Mcrae [address] Acct: [id number] Dis Date: Status: REG ER PH ONE #: [phone] Exam Date: 10/14/2018 1156 FAX #: [phone] Reason: SOB EXAMS: CPT CODE: [id number] XR CHEST 1 V 70995 EXAM: - XR CH EST 1 V Location code:C3 HISTORY: SOB COMPARISON: 07/12/2018 FINDINGS: Single AP view of th e chest is provided. Heart size and vascularity are within normal limits. The lungs are clear of focal consolidation. No effusion, pneumotho rax, or acute osseous abnormality. IMPRESSION: 1. No ra diographic evidence of acute cardiopulmonary process. Kaushiki colleen Signed by Cony Sanchez on 09/22 at 1201 Reported and signed by: Serina Sanchez M.D. CC: Pawan BAHENA; Steffany Tuttle MD; Mi Granados MD Technologist: CARLOS SAAVEDRA [place] Date/Time/By: 10/14/2018 (1201) : By: [email or web address] PAGE 1 Signed Report FAX: Pawan Mcrae [phone] [place]: St: REG FAX: Gianna Tuttle MD [phone] FAX: Mi Garcia MD --------- Name: CAMMY RICHARDSON [facility] : 1960 Age/S: 58/F [address] [facility] it #: [id number] Loc: [address] [place], [place] Phys: Pawan Mcrae [address] Acct: [id number] Dis Date: Status: REG ER PH ONE #: [phone] Exam Date: 10/14/2018 1156 FAX #: [phone] Reason: SOB EXAMS: CPT CODE: [id number] XR CHEST 1 V 32240 <Continued> Orig Print D/T: S: 10/14/2018 (8730) PAGE 2 Signed Report COMPREHENSIVE METABOLIC [id number] 11:57:00* Test Item Value Reference Range Comments SODIUM (test code=NA) 143 mmol/l 134.0-147.0 POTASSIUM (test code=K) 3.7 mmol/L 3.6-5.2 CHLORIDE (test code=CL) 106 mmol/l 98.0-107.0 CARBON DIOXIDE (test code=CO2) 29.6 mmol/l 21.0-33.0 ANION GAP (test code=GAP) 11.1 0-20 GLUCOSE (test code=GLU) mg/dl 70.0-110.0 BLOOD UREA NITROGEN (test code=BUN) mg/dl 7.0-18.0 CREATININE (test code=CREAT) mg/dL 0.60-1.30 GFR NON BLACK (test code=GFRNONBLACK) mL/min 90-95 GFR BLACK (test code=GFRBLACK) mL/min 109-115 TOTAL PROTEIN (test code=PROT) gm/dL 6.4-8.2 ALBUMIN (test code=ALB) gm/dl 3.2-4.7 CALCIUM (test code=CA) mg/dl 8.0-10.5 BILIRUBIN TOTAL (test code=BILT) mg/dl 0.0-1.0 SGOT/AST (test code=AST) Units/L 15.0-37.0 SGPT/ALT (test code=ALT) Units/L 12.0-78.0 ALKALINE PHOSPHATASE TOTAL (test code=ALKP) Units/L 50.0-136.0 B-TYPE NATRIURETIC [id number] 11:57:00* Test Item Value Reference Range Comments B-TYPE NATRIURETIC PEPTIDE (test code=BNP) PG/ML 5-100 CARDIAC ENZYMES [id number] 11:57:00* Test Item Value Reference Range Comments CREATINE KINASE (CK) (test code=CK) Units/L 26-192 TROPONIN-I (test code=TROPI) NG/ML 0.00-0.06 URINALYSIS [id number] 11:51:00* Test Item Value Reference Range Comments UA COLOR (test code=COLU) YELLOW UA APPEARANCE (test code=APPU) CLEAR UA GLUCOSE DIPSTICK (test code=DGLUU) NORMAL mg/dl NORMAL UA BILIRUBIN DIPSTICK (test code=BILU) NEGATIVE mg/dL NEGATIVE UA KETONE DIPSTICK (test code=KETU) NEGATIVE mg/dl NEGATIVE UA SPECIFIC GRAVITY (test code=SGU) 1.020 1.000-1.030 UA BLOOD DIPSTICK (test code=TIERRA) 25 Guevara/micL Guevara/micL NEGATIVE UA PH DIPSTICK (test code=EVANGELINA) 6.0 5.0-9.0 UA PROTEIN DIPSTICK (test code=PROU) 15 mg/dl mg/dl NEGATIVE UA UROBILINIOGEN DIPSTICK (test code=URO) 1.0 mg/dl mg/dl NORMAL UA NITRITE DIPSTICK (test code=MICHAEL) NEGATIVE NEGATIVE UA LEUKOCYTE ESTERASE DIPSTICK (test code=LEUU) NEGATIVE Hiral/micL NEGATIVE UA WBC (test code=WBCU) WBC/HPF NONE UA RBC (test code=RBCU) RBC/HPF 0-3 UA EPITHELIAL CELLS (test code=EPIU) EPI/HPF 0-3 UA BACTERIA (test code=BACU) NONE URINALYSIS [id number] 11:51:00* Test Item Value Reference Range Comments UA COLOR (test code=COLU) YELLOW UA APPEARANCE (test code=APPU) CLEAR UA GLUCOSE DIPSTICK (test code=DGLUU) NORMAL mg/dl NORMAL UA BILIRUBIN DIPSTICK (test code=BILU) NEGATIVE mg/dL NEGATIVE UA KETONE DIPSTICK (test code=KETU) NEGATIVE mg/dl NEGATIVE UA SPECIFIC GRAVITY (test code=SGU) 1.020 1.000-1.030 UA BLOOD DIPSTICK (test code=TIERRA) 25 Guevara/micL Guevara/micL NEGATIVE UA PH DIPSTICK (test code=EVANGELINA) 6.0 5.0-9.0 UA PROTEIN DIPSTICK (test code=PROU) 15 mg/dl mg/dl NEGATIVE UA UROBILINIOGEN DIPSTICK (test code=URO) 1.0 mg/dl mg/dl NORMAL UA NITRITE DIPSTICK (test code=MICHAEL) NEGATIVE NEGATIVE UA LEUKOCYTE ESTERASE DIPSTICK (test code=LEUU) NEGATIVE Hiral/micL NEGATIVE UA WBC (test code=WBCU) 0-3 WBC/HPF NONE UA RBC (test code=RBCU) 3-5 RBC/HPF 0-3 UA EPITHELIAL CELLS (test code=EPIU) 0-3 EPI/HPF 0-3 UA BACTERIA (test code=BACU) TRACE NONE UA CALCIUM OXALATE CRYSTALS (test code=CAOXU) FEW CBC W/AUTO [id number] 11:42:00* Test Item Value Reference Range Comments WHITE BLOOD CELL (test code=WBC) 5.7 K/mm3 4.5-11.0 RED BLOOD CELL (test code=RBC) 4.24 M/mm3 3.80-5.20 HEMOGLOBIN (test code=HGB) 13.6 gm/dL 12.0-16.0 HEMATOCRIT (test code=HCT) 40.3 % 36.0-48.0 MEAN CELL VOLUME (test code=MCV) 95.0 UM3 82.0-99.0 MEAN CELL HGB (test code=MCH) 32.1 UUG 25.5-32.5 MEAN CELL HGB CONCETRATION (test code=MCHC) 33.7 gm/dL 29.0-35.5 RED CELL DISTRIBUTION WIDTH (test code=RDW) 13.3 % 11.5-15.0 RED CELL DISTRIBUTION WIDTH SD (test code=RDW-SD) 46.6 fL 34.8-50.2 PLATELET COUNT (test code=PLT) 349 K/mm3 150-400 MEAN PLATELET VOLUME (test code=MPV) 10.0 fl 7.4-10.4 NEUTROPHIL % (test code=NT%) 44.7 % 49.0-76.0 IMMATURE GRANULOCYTE % (test code=IG%) 0.2 % 0.0-0.4 LYMPHOCYTE % (test code=LY%) 39.0 % 23.0-38.0 MONOCYTE % (test code=MO%) 11.5 % 1.0-10.0 EOSINOPHIL % (test code=EO%) 4.1 % 1.0-5.0 BASOPHIL % (test code=BA%) 0.5 % 0.0-1.0 NEUTROPHIL # (test code=NT#) 2.5 K/mm3 2.4-6.3 IMMATURE GRANULOCYTE # (test code=IG#) 0.01 x10 3/uL 0.00-0.07 LYMPHOCYTE # (test code=LY#) 2.2 K/mm3 1.2-4.0 MONOCYTE # (test code=MO#) 0.7 K/mm3 0.0-0.6 EOSINOPHIL # (test code=EO#) 0.2 K/MM3 0.0-0.7 BASOPHIL # (test code=BA#) 0.0 K/mm3 0.0-0.2 - XR WRIST 3 + V [id number] 10:34:00 FAX: Pawan Mcrae [phone] [place]: St: [facility] FAX: Gianna Tuttle MD [phone] Name: CAMMY RICHARDSON [facility] : 1960 Age/S: 58/F [address] [facility] Unit #: [id number] Loc: E.EXP [place], [place] Phys: Pawan Mcrae [address] Acct: [id number] Dis Date: Status: REG ER PHONE #: [phone] Exam Date: 09/27/2018 1028 FAX #: [phone] Reason: dorsal wrist pain EXAMS: CPT CODE: [id number] XR WRIST 3 + V RT [id number] EXAM: - XR WRIST 3 + V RT HISTORY: dorsal wrist pain Location code:C3 COMPARISON: None available time of interpretation. FINDINGS: PA, oblique, and lateral view of the right wrist is provided. There is no acute fracture or malalignment. The joint spaces are preserved. The osseous structures are intact. IMPRESSION: No acute osseous abnormality. at 1034 Reported and sig lauren by: Willie Sanchez M.D. CC: Pawan BAHENA; Gianna Tuttle MD Technologist: [facility]ECKER [facility] Date/Time/By: 09/27/2018 (1034) : By: Len [email or web address] PAGE 1 Signed Report FAX: Pawan Mcrae [phone] [place]: St: [facility] FAX: Gianna Tuttle MD [phone] Name: [facility] : 1960 Age/S: 58/F [address] [facility] Unit #: [id number] Loc: E.EXP [place], [place] Phys: Pawan Mcrae [address] Acct: [id number] Dis Date: Status: REG ER PHONE #: [phone] Exam Date: 09/27/2018 1028 FAX #: [phone] Reason: dorsal wr ist pain EXAMS: CPT CODE: [id number] XR WRIST 3 + V RT [id number] <Continued> Orig Print D/T: S: 09/27/2018 (1037) PAGE 2 Signed Report - CT ABD PELVIS [id number] 19:13:00 FAX: Silver Hurtado [phone] [place]: St: REG FAX: Mo Lin MD [phone] FAX: Gianna Tuttle MD [phone] Name: CAMMY [facility] : 1960 Age/S: 58/F [address] [facility] Unit: [id number] Loc: [address] Phys: [place] [address] Acct: [id number] Dis Date: Status: REG ER PHONE #: [phone] Exam Date: 09/22/2018 1801 FAX #: [phone] Reason: epigastric and RLQ pain EXAMS: CPT CODE: [id number] CT ABD PELVIS W/CONT [id number] CLINICAL INFOR MATION: Epigastric and right lower quadrant abdominal pain. Dictation location: R 16 COMPARISON: CT 06/26/2018 Rei hnique: Axial scans reviewed in lung, soft tissue and bone windows. Padgett l and axial reconstructions were made. Image optimization and dose reduct ion techniques were used. DLP 797 mGy-cm. FINDINGS: Calcified gran uloma at the left lung base. The lungs are otherwise clear. The heart size is normal.The liver, gallbladder, spleen, pancreas and adrenal glands maddy eared unremarkable. Both kidneys function with no apparent hydronephrosis, stones, or soft tissue mass. No dilated bowel loops identified. No free a ir or fluid is seen in the abdomen.The appendix is normal. There is mild diverticulosis with no apparent diverticulitis. No periaortic adenopa thy or aneurysm. In the pelvis the urinary bladder is partially collapsed. No gynecologic mass identified. No pelvic or inguinal adenopathy is seen. IMPRESSION: 1. Old granulomatous disease of the lungs. 2. No hydronephrosis, stones or soft tissue mass. 3. Normal appe ndix. 4. Mild diverticulosis with no apparent diverticulitis. 5. No gynecologic mass noted. at 1913 * * Reported and signed by: Samir Jay M.D. CC: Silver Fajardo MD; Mo Lin MD; Gianna Tuttle MD Technologist: SARA STANLEY Trnscrd Dt/Tm: 09/22/2018 (1912) t. [email or web address] Orig Print D/T: S: 09/22/2018 (6 PAGE 1 Signed Report COMPREHENSIVE METABOLIC [id number] 16:57:00* Test Item Value Reference Range Comments SODIUM (test code=NA) 140 mmol/l 134.0-147.0 POTASSIUM (test code=K) 3.9 mmol/L 3.6-5.2 CHLORIDE (test code=CL) 104 mmol/l 98.0-107.0 CARBON DIOXIDE (test code=CO2) 26.5 mmol/l 21.0-33.0 ANION GAP (test code=GAP) 13.4 0-20 GLUCOSE (test code=GLU) 77 mg/dl 70.0-110.0 BLOOD UREA NITROGEN (test code=BUN) 19 mg/dl 7.0-18.0 CREATININE (test code=CREAT) 1.25 mg/dL 0.60-1.30 GFR NON BLACK (test code=GFRNONBLACK) 47 mL/min 90-95 GFR BLACK (test code=GFRBLACK) 56 mL/min 109-115 TOTAL PROTEIN (test code=PROT) 7.4 GM/DL 6.0-8.1 ALBUMIN (test code=ALB) 3.9 gm/dL 3.2-4.7 CALCIUM (test code=CA) 8.2 mg/dl 8.0-10.5 BILIRUBIN TOTAL (test code=BILT) 0.3 mg/dl 0.0-1.0 SGOT/AST (test code=AST) 19 Units/L 15.0-37.0 SGPT/ALT (test code=ALT) 28 Units/L 12.0-78.0 ALKALINE PHOSPHATASE TOTAL (test code=ALKP) 93 Units/L 50.0-136.0 [id number] 16:57:00* Test Item Value Reference Range Comments LIPASE (test code=LIP) 70 Units/L 65.0-230.0 COMPREHENSIVE METABOLIC [id number] 16:50:00* Test Item Value Reference Range Comments SODIUM (test code=NA) 140 mmol/l 134.0-147.0 POTASSIUM (test code=K) 3.9 mmol/L 3.6-5.2 CHLORIDE (test code=CL) 104 mmol/l 98.0-107.0 CARBON DIOXIDE (test code=CO2) 26.5 mmol/l 21.0-33.0 ANION GAP (test code=GAP) 13.4 0-20 GLUCOSE (test code=GLU) mg/dl 70.0-110.0 BLOOD UREA NITROGEN (test code=BUN) mg/dl 7.0-18.0 CREATININE (test code=CREAT) mg/dL 0.60-1.30 GFR NON BLACK (test code=GFRNONBLACK) mL/min 90-95 GFR BLACK (test code=GFRBLACK) mL/min 109-115 TOTAL PROTEIN (test code=PROT) gm/dL 6.4-8.2 ALBUMIN (test code=ALB) gm/dl 3.2-4.7 CALCIUM (test code=CA) mg/dl 8.0-10.5 BILIRUBIN TOTAL (test code=BILT) mg/dl 0.0-1.0 SGOT/AST (test code=AST) Units/L 15.0-37.0 SGPT/ALT (test code=ALT) Units/L 12.0-78.0 ALKALINE PHOSPHATASE TOTAL (test code=ALKP) Units/L 50.0-136.0 [id number] 16:50:00* Test Item Value Reference Range Comments LIPASE (test code=LIP) Units/L 65.0-230.0 URINALYSIS [id number] 16:50:00* Test Item Value Reference Range Comments UA COLOR (test code=COLU) YELLOW UA APPEARANCE (test code=APPU) CLEAR UA GLUCOSE DIPSTICK (test code=DGLUU) NORMAL mg/dl NORMAL UA BILIRUBIN DIPSTICK (test code=BILU) NEGATIVE mg/dL NEGATIVE UA KETONE DIPSTICK (test code=KETU) NEGATIVE mg/dl NEGATIVE UA SPECIFIC GRAVITY (test code=SGU) 1.025 1.000-1.030 UA BLOOD DIPSTICK (test code=TIERRA) 25 Guevara/micL Guevara/micL NEGATIVE UA PH DIPSTICK (test code=EVANGELINA) 6.0 5.0-9.0 UA PROTEIN DIPSTICK (test code=PROU) NEGATIVE mg/dl NEGATIVE UA UROBILINIOGEN DIPSTICK (test code=URO) NORMAL mg/dl NORMAL UA NITRITE DIPSTICK (test code=MICHAEL) NEGATIVE NEGATIVE UA LEUKOCYTE ESTERASE DIPSTICK (test code=LEUU) NEGATIVE Hiral/micL NEGATIVE UA WBC (test code=WBCU) 0-3 WBC/HPF NONE UA RBC (test code=RBCU) 1-3 RBC/HPF 0-3 UA EPITHELIAL CELLS (test code=EPIU) 0-3 EPI/HPF 0-3 UA BACTERIA (test code=BACU) TRACE NONE CBC W/AUTO [id number] 16:47:00* Test Item Value Reference Range Comments WHITE BLOOD CELL (test code=WBC) 7.9 K/mm3 4.5-11.0 RED BLOOD CELL (test code=RBC) 4.08 M/mm3 3.80-5.20 HEMOGLOBIN (test code=HGB) 12.7 gm/dL 12.0-16.0 HEMATOCRIT (test code=HCT) 39.4 % 36.0-48.0 MEAN CELL VOLUME (test code=MCV) 96.6 UM3 82.0-99.0 MEAN CELL HGB (test code=MCH) 31.1 UUG 25.5-32.5 MEAN CELL HGB CONCETRATION (test code=MCHC) 32.2 gm/dL 29.0-35.5 RED CELL DISTRIBUTION WIDTH (test code=RDW) 13.5 % 11.5-15.0 RED CELL DISTRIBUTION WIDTH SD (test code=RDW-SD) 48.6 fL 34.8-50.2 PLATELET COUNT (test code=PLT) 343 K/mm3 150-400 MEAN PLATELET VOLUME (test code=MPV) 9.9 fl 7.4-10.4 NEUTROPHIL % (test code=NT%) 44.7 % 49.0-76.0 IMMATURE GRANULOCYTE % (test code=IG%) 0.3 % 0.0-0.4 LYMPHOCYTE % (test code=LY%) 43.6 % 23.0-38.0 MONOCYTE % (test code=MO%) 7.5 % 1.0-10.0 EOSINOPHIL % (test code=EO%) 3.4 % 1.0-5.0 BASOPHIL % (test code=BA%) 0.5 % 0.0-1.0 NEUTROPHIL # (test code=NT#) 3.5 K/mm3 2.4-6.3 IMMATURE GRANULOCYTE # (test code=IG#) 0.02 x10 3/uL 0.00-0.07 LYMPHOCYTE # (test code=LY#) 3.4 K/mm3 1.2-4.0 MONOCYTE # (test code=MO#) 0.6 K/mm3 0.0-0.6 EOSINOPHIL # (test code=EO#) 0.3 K/MM3 0.0-0.7 BASOPHIL # (test code=BA#) 0.0 K/mm3 0.0-0.2 URINALYSIS [id number] 16:37:00* Test Item Value Reference Range Comments UA COLOR (test code=COLU) YELLOW UA APPEARANCE (test code=APPU) CLEAR UA GLUCOSE DIPSTICK (test code=DGLUU) NORMAL mg/dl NORMAL UA BILIRUBIN DIPSTICK (test code=BILU) NEGATIVE mg/dL NEGATIVE UA KETONE DIPSTICK (test code=KETU) NEGATIVE mg/dl NEGATIVE UA SPECIFIC GRAVITY (test code=SGU) 1.025 1.000-1.030 UA BLOOD DIPSTICK (test code=TIERRA) 25 Guevara/micL Guevara/micL NEGATIVE UA PH DIPSTICK (test code=EVANGELINA) 6.0 5.0-9.0 UA PROTEIN DIPSTICK (test code=PROU) NEGATIVE mg/dl NEGATIVE UA UROBILINIOGEN DIPSTICK (test code=URO) NORMAL mg/dl NORMAL UA NITRITE DIPSTICK (test code=MICHAEL) NEGATIVE NEGATIVE UA LEUKOCYTE ESTERASE DIPSTICK (test code=LEUU) NEGATIVE Hiral/micL NEGATIVE UA WBC (test code=WBCU) WBC/HPF NONE UA RBC (test code=RBCU) RBC/HPF 0-3 UA EPITHELIAL CELLS (test code=EPIU) EPI/HPF 0-3 UA BACTERIA (test code=BACU) NONE [id number] 23:53:00* Test Item Value Reference Range Comments TROPONIN-I (test code=TROPI) <0.02 NG/ML 0.00-0.06 REFERENCE RANGE TROPONIN I HEALTHY INDIVIDUALS: <0.06 ng/mL R/O ISCHEMIA: 0.07 - 0.60 ng/mL CUT-OFF RANGE FOR AMI: 0.60 - 1.5 ng/mL [id number] 20:28:00* Test Item Value Reference Range Comments TROPONIN-I (test code=TROPI) <0.02 NG/ML 0.00-0.06 REFERENCE RANGE TROPONIN I HEALTHY INDIVIDUALS: <0.06 ng/mL R/O ISCHEMIA: 0.07 - 0.60 ng/mL CUT-OFF RANGE FOR AMI: 0.60 - 1.5 ng/mL - CT ANGIO [id number] 18:13:00 FAX: Silver Hurtado [phone] [place]: St: ADM FAX: Filiberto Brooke [phone] FAX: Cj Israel MD [phone] FAX: Gianna Tuttle MD [phone] Name: DEBRARUSTY RET [facility] : 1960 Age/S: 58/F [address] [facility] Unit: [id number] Loc: [address] [place], [place] Phys: [place] [address] Acct: [id number] Dis Date: Status: ADM IN PHONE #: [phone] Exam Date: 07/12/20181945 FAX #: [phone] Reason: cp, sob EXAMS: CPT CODE: [id number] CT ANGIO CHEST 26488 EXAM: - CT ANGIO CHEST HISTORY: Chest pain and shortness of breath Location code:C3 TECHNIQUE: Axial tomograms through the chest were obtained after intrav enous contrast utilizing pulmonary embolus protocol. Coronal and sagittal MIP images are provided. Automated exposure reduction (Auto mA/Smart mA) was utilized in compliance with ACR [employer] with DLP of 550.12 mGy-c m. COMPARISON: 07/12/2018 FINDINGS: VASCULATURE : The pulmonary arteries are well opacified with no evidence of pulmonary embolus. There is no evidence of aortic aneurysm or dissection. Vascular c alcifications involve the aorta and coronary arteries. SHYAM GS: Moderate emphysematous changes are seen with dependent atelectasis. N o acute consolidation. PLEURA: No pleural effusion or pneumothora x. TRACHEOBRONCHIAL TREE: The trachea and lobar bronchi are unremarkable. LYMPHATICS: There is no mediastinal, hilar, or a xillary adenopathy. VISUALIZED ABDOMEN: Unremarkable. BONES: No acute osseous findings. SOFT TISSUES: Unremarkable. OTHER: No significant additional findings. Coronal and sagittal MIP images confirm these findings. IMPRESSION: PAGE 1 Signed Report (CONTINUED) FAX: Silver Hurtado [phone] [place]: St: ADM FAX: Filiberto Brooke [phone] FAX: Cj Israel MD FAX: Gianna Tuttle MD [phone] Name: TRINA RICHARDSON [facility] : 1960 Age/S: [age]/F [address] [facility] Unit: [id number] Loc: [address] [place], [place]: [place] [address] Acct: [id number] Dis Date: Status: ADM IN PHONE #: [phone] Exam D ate: 07/12/20181945 FAX #: [phone] Reason: cp, sob EXAMS: CPT CODE: [id number] CT ANGIO CHEST [address] <Continued> 1. No evidence of pulmonary embolus. 2. Moderate emphysematous changes without acute consolidation. at 1813 Reported and signed by: Willie Sanchez M.D. CC: Silver Fajardo MD; Filiberto Montelongo MD; Cj Call MD; Gianna Tuttle MD Technologist: SARA DOUGLAS Trnscrd Dt/Tm: 07/12/2018 (1812) [email or web address] Orig Print D/T: S: 07/12/2018 (7 PAGE 2 Signed Report BASIC METABOLIC [id number] 15:57:00* Test Item Value Reference Range Comments SODIUM (test code=NA) 139 mmol/l 134.0-147.0 POTASSIUM (test code=K) 3.8 mmol/L 3.6-5.2 CHLORIDE (test code=CL) 104 mmol/l 98.0-107.0 CARBON DIOXIDE (test code=CO2) 27.7 mmol/l 21.0-33.0 ANION GAP (test code=GAP) 11.1 0-20 GLUCOSE (test code=GLU) mg/dl 70.0-110.0 BLOOD UREA NITROGEN (test code=BUN) mg/dl 7.0-18.0 CREATININE (test code=CREAT) mg/dL 0.60-1.30 GFR NON BLACK (test code=GFRNONBLACK) mL/min 90-95 GFR BLACK (test code=GFRBLACK) mL/min 109-115 CALCIUM (test code=CA) mg/dl 8.0-10.5 [id number] 15:57:00* Test Item Value Reference Range Comments TROPONIN-I (test code=TROPI) NG/ML 0.00-0.06 BASIC METABOLIC [id number] 15:57:00* Test Item Value Reference Range Comments SODIUM (test code=NA) 139 mmol/l 134.0-147.0 POTASSIUM (test code=K) 3.8 mmol/L 3.6-5.2 CHLORIDE (test code=CL) 104 mmol/l 98.0-107.0 CARBON DIOXIDE (test code=CO2) 27.7 mmol/l 21.0-33.0 ANION GAP (test code=GAP) 11.1 0-20 GLUCOSE (test code=GLU) 99 mg/dl 70.0-110.0 BLOOD UREA NITROGEN (test code=BUN) 14 mg/dl 7.0-18.0 CREATININE (test code=CREAT) 1.04 mg/dL 0.60-1.30 GFR NON BLACK (test code=GFRNONBLACK) 58 mL/min 90-95 GFR BLACK (test code=GFRBLACK) 70 mL/min 109-115 CALCIUM (test code=CA) 9.6 mg/dl 8.0-10.5 [id number] 15:57:00* Test Item Value Reference Range Comments TROPONIN-I (test code=TROPI) <0.02 NG/ML 0.00-0.06 REFERENCE RANGE TROPONIN I HEALTHY INDIVIDUALS: <0.06 ng/mL R/O ISCHEMIA: 0.07 - 0.60 ng/mL CUT-OFF RANGE FOR AMI: 0.60 - 1.5 ng/mL D-DIMER/[id number] 15:52:00* Test Item Value Reference Range Comments D-DIMER/FSP (test code=DDIMER) 517 ng/mL 200.0-230.0 Per field technical specialist recommendation, the CUT OFFfor the Diagnosis of PE or DVT with a 100% SENSITIVITY &100% PREDICTIVE VALUE is suggested to be 230 ng/mL D- DIMERUNIT(DDU). D-DIMER RESULTS MAY BE AFFECTED BY:1. HEMOGLOBIN > 100 mg/dL2. BILIRUBIN > 10 mg/dL3. TRIGLYCERIDES > 1500 mg/dL4. The presence of RHEUMATIOID FACTOR may produce an overestimation of the test result. CBC W/AUTO [id number] 15:48:00* Test Item Value Reference Range Comments WHITE BLOOD CELL (test code=WBC) 7.9 K/mm3 4.5-11.0 RED BLOOD CELL (test code=RBC) 3.93 M/mm3 3.80-5.20 HEMOGLOBIN (test code=HGB) 12.6 gm/dL 12.0-16.0 HEMATOCRIT (test code=HCT) 38.7 % 36.0-48.0 MEAN CELL VOLUME (test code=MCV) 98.5 UM3 82.0-99.0 MEAN CELL HGB (test code=MCH) 32.1 UUG 25.5-32.5 MEAN CELL HGB CONCETRATION (test code=MCHC) 32.6 gm/dL 29.0-35.5 RED CELL DISTRIBUTION WIDTH (test code=RDW) 13.2 % 11.5-15.0 RED CELL DISTRIBUTION WIDTH SD (test code=RDW-SD) 47.9 fL 34.8-50.2 PLATELET COUNT (test code=PLT) 315 K/mm3 150-400 MEAN PLATELET VOLUME (test code=MPV) 10.0 fl 7.4-10.4 NEUTROPHIL % (test code=NT%) 51.0 % 49.0-76.0 IMMATURE GRANULOCYTE % (test code=IG%) 0.3 % 0.0-0.4 LYMPHOCYTE % (test code=LY%) 37.0 % 23.0-38.0 MONOCYTE % (test code=MO%) 8.1 % 1.0-10.0 EOSINOPHIL % (test code=EO%) 3.2 % 1.0-5.0 BASOPHIL % (test code=BA%) 0.4 % 0.0-1.0 NEUTROPHIL # (test code=NT#) 4.0 K/mm3 2.4-6.3 IMMATURE GRANULOCYTE # (test code=IG#) 0.02 x10 3/uL 0.00-0.07 LYMPHOCYTE # (test code=LY#) 2.9 K/mm3 1.2-4.0 MONOCYTE # (test code=MO#) 0.6 K/mm3 0.0-0.6 EOSINOPHIL # (test code=EO#) 0.3 K/MM3 0.0-0.7 BASOPHIL # (test code=BA#) 0.0 K/mm3 0.0-0.2 TROPONIN I [id number] 15:43:00* Test Item Value Reference Range Comments TROPONIN I RAPID (test code=TROPIRAP) 0.00 0.00-0.08 Negative: <=0.08 Positive: >=0.09An elevated troponin value alone is not sufficient todiagnose a myocardial infarction. Rather, the patient'sclinical presentation (history, physical exam) and ECGshould be used in conjunction with troponin in thediagnostic evaluation of suspected myocardial infarction.A serial sampling protocol is recommended to facilitatethe identification of temporal changes in troponin levelscharacteristic of PA. - XR CHEST 1 [id number] 15:24:00 FAX: Silver Hurtado [phone] [place]: St: [facility] FAX: Cj Israel MD [phone] FAX: Gianna Tuttle MD [phone] Name: CAMMY RICHARDSON THIERRY [facility] : 1960 Age/S: 58/F [address] [facility] Unit #: [id number] Loc: [address] Phys: [place] [address] Acct: [id number] Dis Date: Status: REG ER PH ONE #: [phone] Exam Date: 07/12/2018 1519 FAX #: [phone] Reason: SOB EXAMS: CPT CODE: [id number] XR CHEST 1 V 51298 Examination: Chest 1 view Location code: S17 Comparison: Chest Ap ril 2018 Discussion: Clinical history is remarka ble for shortness of breath. Cardiac silhouette is normal in size. Minimal lingular atelectatic change is noted. No consolidation or effusion is pre sent. Impression: No acute cardiopulmonary abnormality, minimal lingular atelectasis. at 2241 Reported and signed by: Baljinder Sauceda M.D. CC: Sivler Fajardo MD; Cj Call MD; Gianna Tuttle MD Techn ologist: JERMAINE Hallscrd Date/Trace e/By: 07/12/2018 (1524) : By: [email or web address] PAGE 1 Signed Report FAX: Silver Hurtado [phone] [place]: St: REG FAX: Cj Israel MD FAX: Gianna Tuttle MD [phone] Name: CAMMY RICHARDSON [facility] : 1960 Age/S: 58/F [address] Unit #: [id number] Loc: [address] [place]: [place] [address] Acct: [id number] Dis Date: Sta tus: REG ER PHONE #: [phone] Exam Date: 07/12/2018 1519 FAX #: [phone] Reason: SOB EXAMS: CPT CODE: [id number] XR CHEST 1 V 56836 <Continued> Orig Print D/T: S: 07/12/2018 (1520) PAGE 2 Signed Report - CT ABD PELVIS W/O CONT 2018-06-27 08:55:00 FAX: Silver Hurtado [phone] [place]: St: DEP Name: CAMMY BOLDEN [facility] : Age/S: 58/F [address] Unit: [id number] Loc: [address] [place], [place]: [place] [address] Acct: [id number] Dis Date: Status: DEP ER PHONE #: [phone] Exam Date: 06/26/20182238 FAX #: [phone] Reason: PAIN EXAMS: CPT CODE: [id number] CT ABD PELVIS W/O CONT 85774 HISTORY: 1 day history of lower p elvic pain with bleeding, hysterectomy. CT abdomen and pelvi s, unenhanced. Reformatted sagittal and coronal images. COMP ARISON: November 16, 2016 Automated exposure control, iterative r econstruction technique, and/or adjustment of mA and/or kV according to giovanni dia's size was utilized for optimum radiation dose reduction. Neither intravenous nor oral contrast is requested for the exam. Sig nificant pathology may be obscured. The study includes some of the lung bases, which appear to be clear. No pericardial or pleural fluid can be found. Uniform density and size to the liver is seen. Contrac tyson gallbladder present, likely due to food in the stomach. Pancreas inta ct. The spleen is normal in size. Kidneys do not show obstruction, stone s or stranding. Normal aortic diameter. No evidence of free fluid, free air. Bowel loops do not show fluid accumulation for obstruct ion. Constipation changes. Normal appendix seen. Some dive rticula accumulated at the sigmoid but no inflammatory changes are appreci ated. No evidence of inguinal hernia. No unusual fluid collection s in the pelvis. Hysterectomy. No suspicious adenopathy Th e bony structures do not show bony destructive or sclerotic abnormality. Degenerative facet arthrosis changes are mild. IMPRESSION: Limit ed Study. No acute abnormality. Constipation changes. Sigmoid diverti culosis with no active inflammatory disease. A preliminary rep ort was given at 2009 hours on June 26, 2018. A final report could not be generated due to technical considerations. Location: U19 PAGE 1 Signed Report (CONTIN UED) FAX: Silver Hurtado [phone] [place]: St: DEP----- Name : CAMMY RICHARDSON [facility] : [birth year] Age/S: 58/F [address] [facility] [id number] Loc: [place], [place]: [place] [address] Acct: [id number] Dis Date: Status: DEP ER PHONE #: Exam Date: 06/26/2018 7111 FAX #: [phone] Reason: PAIN EXAMS: CPT CODE: [id number] CT ABD PELVIS W/O CONT 48468 <Continued> at 0855 Reported and signed by: Steve Vargas M.D. CC: Al Fajardo MD Technologist: ESTEE Chavira Dt/Tm: 06/27/2018 (0855) [email or web address] Orig Print D/T: S: 06/27/2018 (2958 PAGE 2 Signed Report BASIC METABOLIC [id number] 20:04:00* Test Item Value Reference Range Comments SODIUM (test code=NA) 142 mmol/l 134.0-147.0 POTASSIUM (test code=K) 3.7 mmol/L 3.6-5.2 CHLORIDE (test code=CL) 103 mmol/l 98.0-107.0 CARBON DIOXIDE (test code=CO2) 29.3 mmol/l 21.0-33.0 ANION GAP (test code=GAP) 13.4 0-20 GLUCOSE (test code=GLU) 141 mg/dl 70.0-110.0 BLOOD UREA NITROGEN (test code=BUN) 9 mg/dl 7.0-18.0 CREATININE (test code=CREAT) 1.14 mg/dL 0.60-1.30 GFR NON BLACK (test code=GFRNONBLACK) 52 mL/min 90-95 GFR BLACK (test code=GFRBLACK) 63 mL/min 109-115 CALCIUM (test code=CA) 9.2 mg/dl 8.0-10.5 HEPATIC FUNCTION PANEL [id number] 20:04:00* Test Item Value Reference Range Comments TOTAL PROTEIN (test code=PROT) 7.4 GM/DL 6.0-8.1 ALBUMIN (test code=ALB) 3.8 gm/dL 3.2-4.7 BILIRUBIN TOTAL (test code=BILT) 0.1 mg/dl 0.0-1.0 BILIRUBIN DIRECT (test code=BILD) <0.1 mg/dl 0.0-0.3 SGOT/AST (test code=AST) 20 Units/L 15.0-37.0 SGPT/ALT (test code=ALT) 28 Units/L 12.0-78.0 ALKALINE PHOSPHATASE TOTAL (test code=ALKP) 90 Units/L 50.0-136.0 [id number] 20:04:00* Test Item Value Reference Range Comments LIPASE (test code=LIP) 79 Units/L 65.0-230.0 URINALYSIS [id number] 20:03:00* Test Item Value Reference Range Comments UA COLOR (test code=COLU) YELLOW UA APPEARANCE (test code=APPU) CLEAR UA GLUCOSE DIPSTICK (test code=DGLUU) NORMAL mg/dl NORMAL UA BILIRUBIN DIPSTICK (test code=BILU) NEGATIVE mg/dL NEGATIVE UA KETONE DIPSTICK (test code=KETU) NEGATIVE mg/dl NEGATIVE UA SPECIFIC GRAVITY (test code=SGU) 1.015 1.000-1.030 UA BLOOD DIPSTICK (test code=TIERRA) 10 Guevara/micL Guevara/micL NEGATIVE UA PH DIPSTICK (test code=EVANGELINA) 6.0 5.0-9.0 UA PROTEIN DIPSTICK (test code=PROU) NEGATIVE mg/dl NEGATIVE UA UROBILINIOGEN DIPSTICK (test code=URO) NORMAL mg/dl NORMAL UA NITRITE DIPSTICK (test code=MICHAEL) NEGATIVE NEGATIVE UA LEUKOCYTE ESTERASE DIPSTICK (test code=LEUU) NEGATIVE Hiral/micL NEGATIVE UA WBC (test code=WBCU) 1-3/HPF WBC/HPF NONE UA RBC (test code=RBCU) 1-3 RBC/HPF 0-3 UA EPITHELIAL CELLS (test code=EPIU) 1-3 EPI/HPF 0-3 UA BACTERIA (test code=BACU) FEW NONE UA RENAL CELLS (test code=LIZBETH) FEW Specimen comments: Clean CatchURINALYSIS [id number] 19:57:00* Test Item Value Reference Range Comments UA COLOR (test code=COLU) YELLOW UA APPEARANCE (test code=APPU) CLEAR UA GLUCOSE DIPSTICK (test code=DGLUU) NORMAL mg/dl NORMAL UA BILIRUBIN DIPSTICK (test code=BILU) NEGATIVE mg/dL NEGATIVE UA KETONE DIPSTICK (test code=KETU) NEGATIVE mg/dl NEGATIVE UA SPECIFIC GRAVITY (test code=SGU) 1.015 1.000-1.030 UA BLOOD DIPSTICK (test code=TIERRA) 10 Guevara/micL Guevara/micL NEGATIVE UA PH DIPSTICK (test code=EVANGELINA) 6.0 5.0-9.0 UA PROTEIN DIPSTICK (test code=PROU) NEGATIVE mg/dl NEGATIVE UA UROBILINIOGEN DIPSTICK (test code=URO) NORMAL mg/dl NORMAL UA NITRITE DIPSTICK (test code=MICHAEL) NEGATIVE NEGATIVE UA LEUKOCYTE ESTERASE DIPSTICK (test code=LEUU) NEGATIVE Hiral/micL NEGATIVE UA WBC (test code=WBCU) WBC/HPF NONE UA RBC (test code=RBCU) RBC/HPF 0-3 UA EPITHELIAL CELLS (test code=EPIU) EPI/HPF 0-3 UA BACTERIA (test code=BACU) NONE Specimen comments: Clean CatchBASIC METABOLIC [id number] 19:57:00* Test Item Value Reference Range Comments SODIUM (test code=NA) 142 mmol/l 134.0-147.0 POTASSIUM (test code=K) 3.7 mmol/L 3.6-5.2 CHLORIDE (test code=CL) 103 mmol/l 98.0-107.0 CARBON DIOXIDE (test code=CO2) 29.3 mmol/l 21.0-33.0 ANION GAP (test code=GAP) 13.4 0-20 GLUCOSE (test code=GLU) mg/dl 70.0-110.0 BLOOD UREA NITROGEN (test code=BUN) mg/dl 7.0-18.0 CREATININE (test code=CREAT) mg/dL 0.60-1.30 GFR NON BLACK (test code=GFRNONBLACK) mL/min 90-95 GFR BLACK (test code=GFRBLACK) mL/min 109-115 CALCIUM (test code=CA) mg/dl 8.0-10.5 HEPATIC FUNCTION PANEL [id number] 19:57:00* Test Item Value Reference Range Comments TOTAL PROTEIN (test code=PROT) gm/dL 6.4-8.2 ALBUMIN (test code=ALB) gm/dl 3.2-4.7 BILIRUBIN TOTAL (test code=BILT) mg/dl 0.0-1.0 BILIRUBIN DIRECT (test code=BILD) mg/dl 0.0-0.3 SGOT/AST (test code=AST) Units/L 15.0-37.0 SGPT/ALT (test code=ALT) Units/L 12.0-78.0 ALKALINE PHOSPHATASE TOTAL (test code=ALKP) Units/L 50.0-136.0 [id number] 19:57:00* Test Item Value Reference Range Comments LIPASE (test code=LIP) Units/L 65.0-230.0 CBC W/AUTO [id number] 19:53:00* Test Item Value Reference Range Comments WHITE BLOOD CELL (test code=WBC) 8.3 K/mm3 4.5-11.0 RED BLOOD CELL (test code=RBC) 4.19 M/mm3 3.80-5.20 HEMOGLOBIN (test code=HGB) 13.2 gm/dL 12.0-16.0 HEMATOCRIT (test code=HCT) 40.7 % 36.0-48.0 MEAN CELL VOLUME (test code=MCV) 97.1 UM3 82.0-99.0 MEAN CELL HGB (test code=MCH) 31.5 UUG 25.5-32.5 MEAN CELL HGB CONCETRATION (test code=MCHC) 32.4 gm/dL 29.0-35.5 RED CELL DISTRIBUTION WIDTH (test code=RDW) 13.2 % 11.5-15.0 RED CELL DISTRIBUTION WIDTH SD (test code=RDW-SD) 47.2 fL 34.8-50.2 PLATELET COUNT (test code=PLT) 384 K/mm3 150-400 MEAN PLATELET VOLUME (test code=MPV) 9.6 fl 7.4-10.4 NEUTROPHIL % (test code=NT%) 37.8 % 49.0-76.0 IMMATURE GRANULOCYTE % (test code=IG%) 0.2 % 0.0-0.4 LYMPHOCYTE % (test code=LY%) 50.9 % 23.0-38.0 MONOCYTE % (test code=MO%) 7.2 % 1.0-10.0 EOSINOPHIL % (test code=EO%) 3.4 % 1.0-5.0 BASOPHIL % (test code=BA%) 0.5 % 0.0-1.0 NEUTROPHIL # (test code=NT#) 3.1 K/mm3 2.4-6.3 IMMATURE GRANULOCYTE # (test code=IG#) 0.02 x10 3/uL 0.00-0.07 LYMPHOCYTE # (test code=LY#) 4.2 K/mm3 1.2-4.0 MONOCYTE # (test code=MO#) 0.6 K/mm3 0.0-0.6 EOSINOPHIL # (test code=EO#) 0.3 K/MM3 0.0-0.7 BASOPHIL # (test code=BA#) 0.0 K/mm3 0.0-0.2 COMPREHENSIVE METABOLIC [id number] 05:55:00* Test Item Value Reference Range Comments SODIUM (test code=NA) 139 mmol/l 134.0-147.0 POTASSIUM (test code=K) 3.5 mmol/L 3.6-5.2 CHLORIDE (test code=CL) 103 mmol/l 98.0-107.0 CARBON DIOXIDE (test code=CO2) 29.0 mmol/l 21.0-33.0 ANION GAP (test code=GAP) 10.5 0-20 GLUCOSE (test code=GLU) 116 mg/dl 70.0-110.0 BLOOD UREA NITROGEN (test code=BUN) 15 mg/dl 7.0-18.0 CREATININE (test code=CREAT) 0.95 mg/dL 0.60-1.30 GFR NON BLACK (test code=GFRNONBLACK) 64 mL/min 90-95 GFR BLACK (test code=GFRBLACK) 77 mL/min 109-115 TOTAL PROTEIN (test code=PROT) 6.6 gm/dL 6.4-8.2 ALBUMIN (test code=ALB) 3.3 gm/dl 3.2-4.7 CALCIUM (test code=CA) 8.3 mg/dl 8.0-10.5 BILIRUBIN TOTAL (test code=BILT) 0.3 mg/dl 0.0-1.0 SGOT/AST (test code=AST) 15 Units/L 15.0-37.0 SGPT/ALT (test code=ALT) 29 Units/L 12.0-78.0 ALKALINE PHOSPHATASE TOTAL (test code=ALKP) 75 Units/L 50.0-136.0 Comments to Pl[employer] Tile Setter: Patient is currently in the ED waiting on a bedLIPID PROFILE (CORONARY RISK)2018-06-16 05:55:00* Test Item Value Reference Range Comments TRIGLYCERIDES (test code=TRIG) 47 mg/dl 40.0-150.0 CHOLESTEROL (test code=CHOL) 160 mg/dl 0.0-200.0 CHOLESTEROL/HDL RATIO (test code=CHOLHDL) 2.8 RATIO HDL CHOLESTEROL (test code=HDL) 58 mg/dl 30.0-60.0 LIPOPROTEIN LDL (test code=LDL) 95 mg/dl 70-130 Comments to Plastic Tile Setter: Patient is currently in the ED waiting on a [id number] 05:55:00* Test Item Value Reference Range Comments MAGNESIUM (test code=MAG) 2.2 mg/dl 1.8-2.4 Comments to Plastic Tile Setter: Patient is currently in the ED waiting on a bedCBC W/AUTO [id number] 05:37:00* Test Item Value Reference Range Comments WHITE BLOOD CELL (test code=WBC) 7.0 K/mm3 4.5-11.0 RED BLOOD CELL (test code=RBC) 3.60 M/mm3 3.80-5.20 HEMOGLOBIN (test code=HGB) 11.5 gm/dL 12.0-16.0 HEMATOCRIT (test code=HCT) 35.1 % 36.0-48.0 MEAN CELL VOLUME (test code=MCV) 97.5 UM3 82.0-99.0 MEAN CELL HGB (test code=MCH) 31.9 UUG 25.5-32.5 MEAN CELL HGB CONCETRATION (test code=MCHC) 32.8 gm/dL 29.0-35.5 RED CELL DISTRIBUTION WIDTH (test code=RDW) 13.2 % 11.5-15.0 RED CELL DISTRIBUTION WIDTH SD (test code=RDW-SD) 47.7 fL 34.8-50.2 PLATELET COUNT (test code=PLT) 299 K/mm3 150-400 MEAN PLATELET VOLUME (test code=MPV) 9.9 fl 7.4-10.4 NEUTROPHIL % (test code=NT%) 34.8 % 49.0-76.0 IMMATURE GRANULOCYTE % (test code=IG%) 0.1 % 0.0-0.4 LYMPHOCYTE % (test code=LY%) 53.4 % 23.0-38.0 MONOCYTE % (test code=MO%) 8.0 % 1.0-10.0 EOSINOPHIL % (test code=EO%) 3.3 % 1.0-5.0 BASOPHIL % (test code=BA%) 0.4 % 0.0-1.0 NEUTROPHIL # (test code=NT#) 2.4 K/mm3 2.4-6.3 IMMATURE GRANULOCYTE # (test code=IG#) 0.01 x10 3/uL 0.00-0.07 LYMPHOCYTE # (test code=LY#) 3.7 K/mm3 1.2-4.0 MONOCYTE # (test code=MO#) 0.6 K/mm3 0.0-0.6 EOSINOPHIL # (test code=EO#) 0.2 K/MM3 0.0-0.7 BASOPHIL # (test code=BA#) 0.0 K/mm3 0.0-0.2 Comments to Plastic Tile Setter: Patient is currently in the ED waiting on a bedCARDIAC ENZYMES [id number] 20:48:00* Test Item Value Reference Range Comments CREATINE KINASE (CK) (test code=CK) 255 Units/L 26-192 TROPONIN-I (test code=TROPI) <0.02 NG/ML 0.00-0.06 REFERENCE RANGE TROPONIN I HEALTHY INDIVIDUALS: <0.06 ng/mL R/O ISCHEMIA: 0.07 - 0.60 ng/mL CUT-OFF RANGE FOR AMI: 0.60 - 1.5 ng/mL : Specimen comments: Please see the initial specimen in the lab as the first draw on this series Comments to Plastic Tile Setter: Please draw the 2nd specimen q4hrs after the first and the 3rd 8hrs after the first.Specime n comments: drawn Q4hrs then [id number] to Plastic Tile Setter: Patient is currently in the ED waiting on a bedCARDIAC ENZYMES PROFILE 2018-06-15 17:02:00* Test Item Value Reference Range Comments CREATINE KINASE (CK) (test code=CK) 284 Units/L 26-192 TROPONIN-I (test code=TROPI) <0.02 NG/ML 0.00-0.06 REFERENCE RANGE TROPONIN I HEALTHY INDIVIDUALS: <0.06 ng/mL R/O ISCHEMIA: 0.07 - 0.60 ng/mL CUT-OFF RANGE FOR AMI: 0.60 - 1.5 ng/mL : Specimen comments: Please see the initial specimen in the lab as the first draw on this series Comments to Plastic Tile Setter: Please draw the 2nd specimen q4hrs after the first and the 3rd 8hrs after the first.Specime n comments: drawn Q4hrs then [id number] to Plastic Tile Setter: Patient is currently in the ED waiting on a bedDRUGS OF ABUSE SCREEN UR 2018-06-15 16:54:00* Test Item Value Reference Range Comments URN COCAINE (test code=COCAURN) NEGATIVE NEGATIVE Cocaine cut-off concentration: 300 ng/mL URN CANNABINOIDS (test code=CANNABURN) NEGATIVE NEGATIVE Cannabinoids cut-off concentration: 50 ng/mL URN AMPHETAMINE (test code=AMPHETURN) NEGATIVE NEGATIVE Amphetamine cut-off concentration: 1000 ng/mL URN BARBITURATE (test code=BARBITURN) NEGATIVE NEGATIVE Barbiturate cut-off concentration: 200 ng/mL URN BENZODIAZEPINE (test code=BENZOURN) NEGATIVE NEGATIVE Benzodiazepine cut- off concentration: 200 ng/mL URN OPIATES (test code=OPIATURN) NEGATIVE NEGATIVE Opiates cut-off concentration: 200 ng/mL URN PHENCYCLIDINE (PCP) (test code=PHENCURN) NEGATIVE NEGATIVE Phencyclidine(PCP) cut-off concentration: 25 ng/ml URN METHADONE (test code=METHAURN) NEGATIVE NEGATIVE Methadone cut-off concentration: 300 ng/mL COMPREHENSIVE METABOLIC [id number] 13:24:00* Test Item Value Reference Range Comments SODIUM (test code=NA) 141 mmol/l 134.0-147.0 POTASSIUM (test code=K) 3.6 mmol/L 3.6-5.2 CHLORIDE (test code=CL) 104 mmol/l 98.0-107.0 CARBON DIOXIDE (test code=CO2) 27.6 mmol/l 21.0-33.0 ANION GAP (test code=GAP) 13.0 0-20 GLUCOSE (test code=GLU) 93 mg/dl 70.0-110.0 BLOOD UREA NITROGEN (test code=BUN) 13 mg/dl 7.0-18.0 CREATININE (test code=CREAT) 1.10 mg/dL 0.60-1.30 GFR NON BLACK (test code=GFRNONBLACK) 54 mL/min 90-95 GFR BLACK (test code=GFRBLACK) 65 mL/min 109-115 TOTAL PROTEIN (test code=PROT) 7.2 GM/DL 6.0-8.1 ALBUMIN (test code=ALB) 3.7 gm/dL 3.2-4.7 CALCIUM (test code=CA) 8.5 mg/dl 8.0-10.5 BILIRUBIN TOTAL (test code=BILT) 0.3 mg/dl 0.0-1.0 SGOT/AST (test code=AST) 18 Units/L 15.0-37.0 SGPT/ALT (test code=ALT) 27 Units/L 12.0-78.0 ALKALINE PHOSPHATASE TOTAL (test code=ALKP) 87 Units/L 50.0-136.0 [id number] 13:24:00* Test Item Value Reference Range Comments LIPASE (test code=LIP) 67 Units/L 65.0-230.0 B-TYPE NATRIURETIC [id number] 13:24:00* Test Item Value Reference Range Comments B-TYPE NATRIURETIC PEPTIDE (test code=BNP) 7.1 PG/ML 5-100 CARDIAC ENZYMES [id number] 13:24:00* Test Item Value Reference Range Comments CREATINE KINASE (CK) (test code=CK) 288 Units/L 26-192 TROPONIN-I (test code=TROPI) <0.02 NG/ML 0.00-0.06 REFERENCE RANGE TROPONIN I HEALTHY INDIVIDUALS: <0.06 ng/mL R/O ISCHEMIA: 0.07 - 0.60 ng/mL CUT-OFF RANGE FOR AMI: 0.60 - 1.5 ng/mL COMPREHENSIVE METABOLIC [id number] 13:11:00* Test Item Value Reference Range Comments SODIUM (test code=NA) 141 mmol/l 134.0-147.0 POTASSIUM (test code=K) 3.6 mmol/L 3.6-5.2 CHLORIDE (test code=CL) 104 mmol/l 98.0-107.0 CARBON DIOXIDE (test code=CO2) 27.6 mmol/l 21.0-33.0 ANION GAP (test code=GAP) 13.0 0-20 GLUCOSE (test code=GLU) 93 mg/dl 70.0-110.0 BLOOD UREA NITROGEN (test code=BUN) 13 mg/dl 7.0-18.0 CREATININE (test code=CREAT) 1.10 mg/dL 0.60-1.30 GFR NON BLACK (test code=GFRNONBLACK) 54 mL/min 90-95 GFR BLACK (test code=GFRBLACK) 65 mL/min 109-115 TOTAL PROTEIN (test code=PROT) 7.2 GM/DL 6.0-8.1 ALBUMIN (test code=ALB) 3.7 gm/dL 3.2-4.7 CALCIUM (test code=CA) 8.5 mg/dl 8.0-10.5 BILIRUBIN TOTAL (test code=BILT) 0.3 mg/dl 0.0-1.0 SGOT/AST (test code=AST) 18 Units/L 15.0-37.0 SGPT/ALT (test code=ALT) 27 Units/L 12.0-78.0 ALKALINE PHOSPHATASE TOTAL (test code=ALKP) 87 Units/L 50.0-136.0 [id number] 13:11:00* Test Item Value Reference Range Comments LIPASE (test code=LIP) 67 Units/L 65.0-230.0 B-TYPE NATRIURETIC [id number] 13:11:00* Test Item Value Reference Range Comments B-TYPE NATRIURETIC PEPTIDE (test code=BNP) PG/ML 5-100 CARDIAC ENZYMES [id number] 13:11:00* Test Item Value Reference Range Comments CREATINE KINASE (CK) (test code=CK) 288 Units/L 26-192 TROPONIN-I (test code=TROPI) <0.02 NG/ML 0.00-0.06 REFERENCE RANGE TROPONIN I HEALTHY INDIVIDUALS: <0.06 ng/mL R/O ISCHEMIA: 0.07 - 0.60 ng/mL CUT-OFF RANGE FOR AMI: 0.60 - 1.5 ng/mL COMPREHENSIVE METABOLIC [id number] 13:07:00* Test Item Value Reference Range Comments SODIUM (test code=NA) 141 mmol/l 134.0-147.0 POTASSIUM (test code=K) 3.6 mmol/L 3.6-5.2 CHLORIDE (test code=CL) 104 mmol/l 98.0-107.0 CARBON DIOXIDE (test code=CO2) 27.6 mmol/l 21.0-33.0 ANION GAP (test code=GAP) 13.0 0-20 GLUCOSE (test code=GLU) mg/dl 70.0-110.0 BLOOD UREA NITROGEN (test code=BUN) mg/dl 7.0-18.0 CREATININE (test code=CREAT) mg/dL 0.60-1.30 GFR NON BLACK (test code=GFRNONBLACK) mL/min 90-95 GFR BLACK (test code=GFRBLACK) mL/min 109-115 TOTAL PROTEIN (test code=PROT) gm/dL 6.4-8.2 ALBUMIN (test code=ALB) gm/dl 3.2-4.7 CALCIUM (test code=CA) mg/dl 8.0-10.5 BILIRUBIN TOTAL (test code=BILT) mg/dl 0.0-1.0 SGOT/AST (test code=AST) Units/L 15.0-37.0 SGPT/ALT (test code=ALT) Units/L 12.0-78.0 ALKALINE PHOSPHATASE TOTAL (test code=ALKP) Units/L 50.0-136.0 [id number] 13:07:00* Test Item Value Reference Range Comments LIPASE (test code=LIP) Units/L 65.0-230.0 B-TYPE NATRIURETIC [id number] 13:07:00* Test Item Value Reference Range Comments B-TYPE NATRIURETIC PEPTIDE (test code=BNP) PG/ML 5-100 CARDIAC ENZYMES [id number] 13:07:00* Test Item Value Reference Range Comments CREATINE KINASE (CK) (test code=CK) Units/L 26-192 TROPONIN-I (test code=TROPI) NG/ML 0.00-0.06 PROTHROMBIN [id number] 13:00:00* Test Item Value Reference Range Comments PROTHROMBIN TIME PATIENT (test code=PTP) 11.9 SECONDS 9.9-12.8 INTERNATIONAL NORMAL RATIO (test code=INR) 1.0 0.89-1.14 THE INR IS TO BE USED ONLY FOR MONITORING ORAL ANTICOAGULANTTHERAPY. THE FOLLOWING ARE SUGGESTED RANGES FROM THEAMERICAN COLLEGE OF CHEST PHYSICIANS:INDICATION INR VALUEPROPHYLAXIS OF VENOUS THROMBOSIS (ORTHOPEDIC SURGERY) 2.0 - 3.0PROPHYLAXIS OF VENOUS THROMBOSIS (OTHER THAN HIGH-RISK SURGERY) 2.0 - 3.0TREATMENT OF DEEP VEIN THROMBOSIS OR PULMONARY EMBOLISM 2.0 - 3.0PREVENTION OF SYSTEMIC EMBOLISM TISSUE HEART VALVES 2.0 - 3.0 ACUTE MYOCARDIAL INFARCTION (TO PREVENT SYSTEMIC EMBOLISM) 2.0 - 3.0 ACUTE MYOCARDIAL INFARCTION (TO PREVENT RECURRENT INFARCT) 2.5 - 3.0 VALVULAR HEART DISEASE 2.0 - 3.0 ATRIAL FIBRILATION 2.0 - 3.0BILEAFLET MECHANICAL VALVE IN AORTIC POSITION 2.0 - 3.0MECHANICAL PROSTHETIC VALVES (HIGH RISK) 2.5 - 3.5PRESENCE OF LUPUS ANTICOAGULANT OR ANTIPHOSPHOLIPID ANTIBODIES 2.5 - 3.5 THROMBOPLASTIN TIME [id number] 13:00:00* Test Item Value Reference Range Comments THROMBOPLASTIN TIME PARTIAL (test code=PTT) 32.10 SECONDS 25.86-36.07 [facility] Therapeutic Range - APTT of 55.8-85.4 secondscorrelates with plasma heparin concentration of 0.2-0.4 u/mL New range effective - 04/18/2016 CBC W/AUTO [id number] 12:52:00* Test Item Value Reference Range Comments WHITE BLOOD CELL (test code=WBC) 8.0 K/mm3 4.5-11.0 RED BLOOD CELL (test code=RBC) 3.92 M/mm3 3.80-5.20 HEMOGLOBIN (test code=HGB) 12.4 gm/dL 12.0-16.0 HEMATOCRIT (test code=HCT) 38.5 % 36.0-48.0 MEAN CELL VOLUME (test code=MCV) 98.2 UM3 82.0-99.0 MEAN CELL HGB (test code=MCH) 31.6 UUG 25.5-32.5 MEAN CELL HGB CONCETRATION (test code=MCHC) 32.2 gm/dL 29.0-35.5 RED CELL DISTRIBUTION WIDTH (test code=RDW) 13.2 % 11.5-15.0 RED CELL DISTRIBUTION WIDTH SD (test code=RDW-SD) 48.5 fL 34.8-50.2 PLATELET COUNT (test code=PLT) 320 K/mm3 150-400 MEAN PLATELET VOLUME (test code=MPV) 10.1 fl 7.4-10.4 NEUTROPHIL % (test code=NT%) 48.6 % 49.0-76.0 IMMATURE GRANULOCYTE % (test code=IG%) 0.3 % 0.0-0.4 LYMPHOCYTE % (test code=LY%) 39.5 % 23.0-38.0 MONOCYTE % (test code=MO%) 9.1 % 1.0-10.0 EOSINOPHIL % (test code=EO%) 2.0 % 1.0-5.0 BASOPHIL % (test code=BA%) 0.5 % 0.0-1.0 NEUTROPHIL # (test code=NT#) 3.9 K/mm3 2.4-6.3 IMMATURE GRANULOCYTE # (test code=IG#) 0.02 x10 3/uL 0.00-0.07 LYMPHOCYTE # (test code=LY#) 3.2 K/mm3 1.2-4.0 MONOCYTE # (test code=MO#) 0.7 K/mm3 0.0-0.6 EOSINOPHIL # (test code=EO#) 0.2 K/MM3 0.0-0.7 BASOPHIL # (test code=BA#) 0.0 K/mm3 0.0-0.2 - XR SHOULDER 2 + V [id number] 12:33:00 FAX: Silver Hurtado [phone] [place]: St: REG FAX: Mi Garcia MD Name: TRINA RICHARDSONGena GUADARRAMA [facility] : 1960 Age/S: 58/F [address] [facility] [address] Unit #: [id number] Loc: E.ERS2 [place], [place]: [place] [address] Acct: [id number] Dis Date: Status: REG ER PHONE #: [phone] Exam Date: 06/15/2018 1211 FAX #: [phone] Reason: CP EXAMS: CPT CODE: [id number] XR SHOULDER 2 + V RT [id number] REASON FOR EXAM: Chest pain and shoulder pain 3 view right shoulder. COMPARISON: September 03, 2013. The sh oulder is well aligned including the AC joint and with good mineralization pattern. Transscapular view with good alignment. IMPRESSION: N egative right shoulder. Stable exam since 2013. Loc ation: U19 at 1233 Reported and signed by: Steve Vargas M.D. CC: Silver Fajardo MD; Mi Granados MD Technologist: FROY WEN [facility] Date/Time/By: 06/15/2018 (4203) : By: [facility] PAGE 1 Sig lauren Report FAX: Silver Hurtado [place]: St: REG FAX: Mi Garcia MD Name: [facility] OB: 1960 Age/S: 58/F [address] Unit #: [id number] Loc: E.ERS2 [place], [place]: [place] [address] Acct: [id number] D is Date: Status: REG ER PHONE #: [phone] Exam Date: 06/15/2018 1218 FAX #: Reason: CP EXAMS: CPT CODE: [id number] XR SHOULDER 2 + V RT 37638 <Continued> Orig Print D/T: S: 06/15/2018 (0587) PAGE 2 Signed Report - XR CHEST 1 [id number] 12:21:00 FAX: Silver Hurtado [phone] [place]: St: REG FAX: Mi Garcia MD Name: CAMMY RICHARDSON [facility] : 1960 Age/S: 58/F [address] [facility] Unit #: [id number] Loc: [address] [place]: [place] [id number] Acct: [id number] Dis Date: Status: REG ER PHONE #: [phone] Exam Date: 06/15/2018 1218 FAX #: [phone] Reason: CP EXAMS: CPT CODE: [id number] XR CHEST 1 V 97046 HISTORY: chest pain Location code: B2 FINDINGS: Frontal view of the chest demonstrates normal cardiomediastinal silhouette. The trachea is midline. The lungs are clear. There is no effusion or pneumothorax. The bones are intact. IMPRESSION: No acute pulmonary process. at 1221 Reported and signed by: Erickson Sofia M.D. CC: Silver Fajardo MD; Mi Granados MD Technologist: FROY WEN Trnscrd Date/Time/By: 06/15/2018 (9201) : By: [email or web address] PAGE 1 Signed Report FAX: Silver Hurtado [phone] [place]: St: REG FAX: Mi Garcia MD Name: CAMMY RICHARDSON [facility] : 1960 Age/S: 58/F [address] [facility] Unit #: [id number] Loc: [address] [place]: [place] [address] [address] ct: [id number] Dis Date: Status: REG ER PHONE #: [phone] Exam Date: 06/15/2018 1218 FAX #: [phone] Reason: CP EXAMS: CPT CODE: [id number] XR CHEST 1 V 47068 < Continued> Orig Print D/T: S: 06/15/2018 (9278) PAGE 2 Signed Report - XR CHEST 1 [id number] 08:26:00 FAX: Silver Hurtado [phone] [place]: St: [facility] [place] FAX: Mi Garcia MD Name: CAMMY RICHARDSON [facility] : 1960 Age/S: 58/F [address] Unit #: [id number] [place]: [place] [address] Acct: [id number] Dis Date: Status: DEP ER PHONE #: [phone] Exam Date: 06/13/2018 2337 FAX #: [phone] Reason: cp EXAMS: CPT CODE: [id number] XR CHEST 1 V 14160 REASON FOR EXAM: Chest pain. COMPARISON: January 25, 2017. Chest, portable single frontal view. The l ungs are well-inflated and clear. Heart size is normal. No effusion or p neumothorax can be seen. Osseous structures appear to be intact. IMPRESSION: No acute cardiopulmonary disease. N ote: A preliminary report was given at the time the film was obtained. A final report could not be provided due to technical difficulties Location: U19 at 0826 Reported and signed by: Steve Vargas M.D. CC: Silver Fajardo MD; Mi Granados MD Technol ogist: AURORA BECKER Trnscrd Date/Time/ By: 06/14/2018 (46) : By: [facility] PAGE 1 S igned Report FAX: Silver Hurtado [place]: St: [facility] [place] FAX: Mi Garcia MD --- Name: CAMMY RICHARDSON [facility] : 1960 Age/S: 58/F [address] [facility] Unit #: [id number] [place]: [place], [place]: [place] [address] Acct: [id number] Dis Date: Status: DEP ER PHONE #: [phone] Exam Date: 06/13/2018 2337 FAX #: Reason: cp EXAMS: CPT CODE: [id number] XR CHEST 1 V 20817 <Continued> Orig Print D/T: S: 06/14/2018 (9584) PAGE 2 Signed Report PROTHROMBIN [id number] 00:14:00* Test Item Value Reference Range Comments PROTHROMBIN TIME PATIENT (test code=PTP) 11.2 SECONDS 9.9-12.8 INTERNATIONAL NORMAL RATIO (test code=INR) 1.0 0.89-1.14 THE INR IS TO BE USED ONLY FOR MONITORING ORAL ANTICOAGULANTTHERAPY. THE FOLLOWING ARE SUGGESTED RANGES FROM THEAMERICAN COLLEGE OF CHEST PHYSICIANS:INDICATION INR VALUEPROPHYLAXIS OF VENOUS THROMBOSIS (ORTHOPEDIC SURGERY) 2.0 - 3.0PROPHYLAXIS OF VENOUS THROMBOSIS (OTHER THAN HIGH-RISK SURGERY) 2.0 - 3.0TREATMENT OF DEEP VEIN THROMBOSIS OR PULMONARY EMBOLISM 2.0 - 3.0PREVENTION OF SYSTEMIC EMBOLISM TISSUE HEART VALVES 2.0 - 3.0 ACUTE MYOCARDIAL INFARCTION (TO PREVENT SYSTEMIC EMBOLISM) 2.0 - 3.0 ACUTE MYOCARDIAL INFARCTION (TO PREVENT RECURRENT INFARCT) 2.5 - 3.0 VALVULAR HEART DISEASE 2.0 - 3.0 ATRIAL FIBRILATION 2.0 - 3.0BILEAFLET MECHANICAL VALVE IN AORTIC POSITION 2.0 - 3.0MECHANICAL PROSTHETIC VALVES (HIGH RISK) 2.5 - 3.5PRESENCE OF LUPUS ANTICOAGULANT OR ANTIPHOSPHOLIPID ANTIBODIES 2.5 - 3.5 THROMBOPLASTIN TIME [id number] 00:14:00* Test Item Value Reference Range Comments THROMBOPLASTIN TIME PARTIAL (test code=PTT) 33.10 SECONDS 25.86-36.07 [facility] Therapeutic Range - APTT of 55.8-85.4 secondscorrelates with plasma heparin concentration of 0.2-0.4 u/mL New range effective - 04/18/2016 COMPREHENSIVE METABOLIC [id number] 00:07:00* Test Item Value Reference Range Comments SODIUM (test code=NA) 142 mmol/l 134.0-147.0 POTASSIUM (test code=K) 3.4 mmol/L 3.6-5.2 CHLORIDE (test code=CL) 103 mmol/l 98.0-107.0 CARBON DIOXIDE (test code=CO2) 30.4 mmol/l 21.0-33.0 ANION GAP (test code=GAP) 12.0 0-20 GLUCOSE (test code=GLU) 119 mg/dl 70.0-110.0 BLOOD UREA NITROGEN (test code=BUN) 15 mg/dl 7.0-18.0 CREATININE (test code=CREAT) 1.08 mg/dL 0.60-1.30 GFR NON BLACK (test code=GFRNONBLACK) 55 mL/min 90-95 GFR BLACK (test code=GFRBLACK) 67 mL/min 109-115 TOTAL PROTEIN (test code=PROT) 7.3 GM/DL 6.0-8.1 ALBUMIN (test code=ALB) 3.7 gm/dL 3.2-4.7 CALCIUM (test code=CA) 8.7 mg/dl 8.0-10.5 BILIRUBIN TOTAL (test code=BILT) 0.2 mg/dl 0.0-1.0 SGOT/AST (test code=AST) 23 Units/L 15.0-37.0 SGPT/ALT (test code=ALT) 32 Units/L 12.0-78.0 ALKALINE PHOSPHATASE TOTAL (test code=ALKP) 88 Units/L 50.0-136.0 [id number] 00:07:00* Test Item Value Reference Range Comments LIPASE (test code=LIP) 90 Units/L 65.0-230.0 B-TYPE NATRIURETIC [id number] 00:07:00* Test Item Value Reference Range Comments B-TYPE NATRIURETIC PEPTIDE (test code=BNP) PG/ML 5-100 CARDIAC ENZYMES [id number] 00:07:00* Test Item Value Reference Range Comments CREATINE KINASE (CK) (test code=CK) 332 Units/L 26-192 TROPONIN-I (test code=TROPI) <0.02 NG/ML 0.00-0.06 REFERENCE RANGE TROPONIN I HEALTHY INDIVIDUALS: <0.06 ng/mL R/O ISCHEMIA: 0.07 - 0.60 ng/mL CUT-OFF RANGE FOR AMI: 0.60 - 1.5 ng/mL COMPREHENSIVE METABOLIC [id number] 00:07:00* Test Item Value Reference Range Comments SODIUM (test code=NA) 142 mmol/l 134.0-147.0 POTASSIUM (test code=K) 3.4 mmol/L 3.6-5.2 CHLORIDE (test code=CL) 103 mmol/l 98.0-107.0 CARBON DIOXIDE (test code=CO2) 30.4 mmol/l 21.0-33.0 ANION GAP (test code=GAP) 12.0 0-20 GLUCOSE (test code=GLU) 119 mg/dl 70.0-110.0 BLOOD UREA NITROGEN (test code=BUN) 15 mg/dl 7.0-18.0 CREATININE (test code=CREAT) 1.08 mg/dL 0.60-1.30 GFR NON BLACK (test code=GFRNONBLACK) 55 mL/min 90-95 GFR BLACK (test code=GFRBLACK) 67 mL/min 109-115 TOTAL PROTEIN (test code=PROT) 7.3 GM/DL 6.0-8.1 ALBUMIN (test code=ALB) 3.7 gm/dL 3.2-4.7 CALCIUM (test code=CA) 8.7 mg/dl 8.0-10.5 BILIRUBIN TOTAL (test code=BILT) 0.2 mg/dl 0.0-1.0 SGOT/AST (test code=AST) 23 Units/L 15.0-37.0 SGPT/ALT (test code=ALT) 32 Units/L 12.0-78.0 ALKALINE PHOSPHATASE TOTAL (test code=ALKP) 88 Units/L 50.0-136.0 [id number] 00:07:00* Test Item Value Reference Range Comments LIPASE (test code=LIP) 90 Units/L 65.0-230.0 B-TYPE NATRIURETIC [id number] 00:07:00* Test Item Value Reference Range Comments B-TYPE NATRIURETIC PEPTIDE (test code=BNP) 9 PG/ML 5-100 CARDIAC ENZYMES [id number] 00:07:00* Test Item Value Reference Range Comments CREATINE KINASE (CK) (test code=CK) 332 Units/L 26-192 TROPONIN-I (test code=TROPI) <0.02 NG/ML 0.00-0.06 REFERENCE RANGE TROPONIN I HEALTHY INDIVIDUALS: <0.06 ng/mL R/O ISCHEMIA: 0.07 - 0.60 ng/mL CUT-OFF RANGE FOR AMI: 0.60 - 1.5 ng/mL DRUGS OF ABUSE SCREEN [id number] 00:01:00* Test Item Value Reference Range Comments URN COCAINE (test code=COCAURN) NEGATIVE NEGATIVE Cocaine cut-off concentration: 300 ng/mL URN CANNABINOIDS (test code=CANNABURN) NEGATIVE NEGATIVE Cannabinoids cut-off concentration: 50 ng/mL URN AMPHETAMINE (test code=AMPHETURN) NEGATIVE NEGATIVE Amphetamine cut-off concentration: 1000 ng/mL URN BARBITURATE (test code=BARBITURN) NEGATIVE NEGATIVE Barbiturate cut-off concentration: 200 ng/mL URN BENZODIAZEPINE (test code=BENZOURN) NEGATIVE NEGATIVE Benzodiazepine cut- off concentration: 200 ng/mL URN OPIATES (test code=OPIATURN) NEGATIVE NEGATIVE Opiates cut-off concentration: 200 ng/mL URN PHENCYCLIDINE (PCP) (test code=PHENCURN) NEGATIVE NEGATIVE Phencyclidine(PCP) cut-off concentration: 25 ng/ml URN METHADONE (test code=METHAURN) NEGATIVE NEGATIVE Methadone cut-off concentration: 300 ng/mL URINALYSIS [id number] 00:01:00* Test Item Value Reference Range Comments UA COLOR (test code=COLU) YELLOW UA APPEARANCE (test code=APPU) HAZY UA GLUCOSE DIPSTICK (test code=DGLUU) NORMAL mg/dl NORMAL UA BILIRUBIN DIPSTICK (test code=BILU) NEGATIVE mg/dL NEGATIVE UA KETONE DIPSTICK (test code=KETU) NEGATIVE mg/dl NEGATIVE UA SPECIFIC GRAVITY (test code=SGU) 1.025 1.000-1.030 UA BLOOD DIPSTICK (test code=TIERRA) 25 Guevara/micL Guevara/micL NEGATIVE UA PH DIPSTICK (test code=EVANGELINA) 5.0 5.0-9.0 UA PROTEIN DIPSTICK (test code=PROU) NEGATIVE mg/dl NEGATIVE UA UROBILINIOGEN DIPSTICK (test code=URO) NORMAL mg/dl NORMAL UA NITRITE DIPSTICK (test code=MICHAEL) NEGATIVE NEGATIVE UA LEUKOCYTE ESTERASE DIPSTICK (test code=LEUU) NEGATIVE Hiral/micL NEGATIVE UA WBC (test code=WBCU) 3-5/HPF WBC/HPF NONE UA RBC (test code=RBCU) 3-5 RBC/HPF 0-3 UA EPITHELIAL CELLS (test code=EPIU) 5-10 EPI/HPF 0-3 UA BACTERIA (test code=BACU) FEW NONE COMPREHENSIVE METABOLIC [id number] 23:57:00* Test Item Value Reference Range Comments SODIUM (test code=NA) 142 mmol/l 134.0-147.0 POTASSIUM (test code=K) 3.4 mmol/L 3.6-5.2 CHLORIDE (test code=CL) 103 mmol/l 98.0-107.0 CARBON DIOXIDE (test code=CO2) 30.4 mmol/l 21.0-33.0 ANION GAP (test code=GAP) 12.0 0-20 GLUCOSE (test code=GLU) mg/dl 70.0-110.0 BLOOD UREA NITROGEN (test code=BUN) mg/dl 7.0-18.0 CREATININE (test code=CREAT) mg/dL 0.60-1.30 GFR NON BLACK (test code=GFRNONBLACK) mL/min 90-95 GFR BLACK (test code=GFRBLACK) mL/min 109-115 TOTAL PROTEIN (test code=PROT) gm/dL 6.4-8.2 ALBUMIN (test code=ALB) gm/dl 3.2-4.7 CALCIUM (test code=CA) mg/dl 8.0-10.5 BILIRUBIN TOTAL (test code=BILT) mg/dl 0.0-1.0 SGOT/AST (test code=AST) Units/L 15.0-37.0 SGPT/ALT (test code=ALT) Units/L 12.0-78.0 ALKALINE PHOSPHATASE TOTAL (test code=ALKP) Units/L 50.0-136.0 [id number] 23:57:00* Test Item Value Reference Range Comments LIPASE (test code=LIP) Units/L 65.0-230.0 B-TYPE NATRIURETIC [id number] 23:57:00* Test Item Value Reference Range Comments B-TYPE NATRIURETIC PEPTIDE (test code=BNP) PG/ML 5-100 CARDIAC ENZYMES [id number] 23:57:00* Test Item Value Reference Range Comments CREATINE KINASE (CK) (test code=CK) Units/L 26-192 TROPONIN-I (test code=TROPI) NG/ML 0.00-0.06 CBC W/AUTO [id number] 23:52:00* Test Item Value Reference Range Comments WHITE BLOOD CELL (test code=WBC) 8.3 K/mm3 4.5-11.0 RED BLOOD CELL (test code=RBC) 3.99 M/mm3 3.80-5.20 HEMOGLOBIN (test code=HGB) 12.7 gm/dL 12.0-16.0 HEMATOCRIT (test code=HCT) 39.2 % 36.0-48.0 MEAN CELL VOLUME (test code=MCV) 98.2 UM3 82.0-99.0 MEAN CELL HGB (test code=MCH) 31.8 UUG 25.5-32.5 MEAN CELL HGB CONCETRATION (test code=MCHC) 32.4 gm/dL 29.0-35.5 RED CELL DISTRIBUTION WIDTH (test code=RDW) 13.2 % 11.5-15.0 RED CELL DISTRIBUTION WIDTH SD (test code=RDW-SD) 48.6 fL 34.8-50.2 PLATELET COUNT (test code=PLT) 323 K/mm3 150-400 MEAN PLATELET VOLUME (test code=MPV) 9.9 fl 7.4-10.4 NEUTROPHIL % (test code=NT%) 43.3 % 49.0-76.0 IMMATURE GRANULOCYTE % (test code=IG%) 0.1 % 0.0-0.4 LYMPHOCYTE % (test code=LY%) 43.4 % 23.0-38.0 MONOCYTE % (test code=MO%) 9.2 % 1.0-10.0 EOSINOPHIL % (test code=EO%) 3.5 % 1.0-5.0 BASOPHIL % (test code=BA%) 0.5 % 0.0-1.0 NEUTROPHIL # (test code=NT#) 3.6 K/mm3 2.4-6.3 IMMATURE GRANULOCYTE # (test code=IG#) 0.01 x10 3/uL 0.00-0.07 LYMPHOCYTE # (test code=LY#) 3.6 K/mm3 1.2-4.0 MONOCYTE # (test code=MO#) 0.8 K/mm3 0.0-0.6 EOSINOPHIL # (test code=EO#) 0.3 K/MM3 0.0-0.7 BASOPHIL # (test code=BA#) 0.0 K/mm3 0.0-0.2 URINALYSIS [id number] 23:52:00* Test Item Value Reference Range Comments UA COLOR (test code=COLU) YELLOW UA APPEARANCE (test code=APPU) HAZY UA GLUCOSE DIPSTICK (test code=DGLUU) NORMAL mg/dl NORMAL UA BILIRUBIN DIPSTICK (test code=BILU) NEGATIVE mg/dL NEGATIVE UA KETONE DIPSTICK (test code=KETU) NEGATIVE mg/dl NEGATIVE UA SPECIFIC GRAVITY (test code=SGU) 1.025 1.000-1.030 UA BLOOD DIPSTICK (test code=TIERRA) 25 Guevara/micL Guevara/micL NEGATIVE UA PH DIPSTICK (test code=EVANGELINA) 5.0 5.0-9.0 UA PROTEIN DIPSTICK (test code=PROU) NEGATIVE mg/dl NEGATIVE UA UROBILINIOGEN DIPSTICK (test code=URO) NORMAL mg/dl NORMAL UA NITRITE DIPSTICK (test code=MICHAEL) NEGATIVE NEGATIVE UA LEUKOCYTE ESTERASE DIPSTICK (test code=LEUU) NEGATIVE Hiral/micL NEGATIVE UA WBC (test code=WBCU) WBC/HPF NONE UA RBC (test code=RBCU) RBC/HPF 0-3 UA EPITHELIAL CELLS (test code=EPIU) EPI/HPF 0-3 UA BACTERIA (test code=BACU) NONE - CT ORBIT/SELLA/IAC [id number] 12:09:00 Name: CAMMY RICHARDSON THIERRY [facility] : 1960 Age/S: 58 / F [address] [place] [address] Blvd Unit #: [id number] Loc: [place] [address] Phys: Jenniffer Richard Acct: [id number] Dis Date: Status: REG ER PHONE #: [phone] Exam Date: 04/29/2018 1151 FAX #: [phone] Reason: L EAR/MASTOID PAIN EXAMS: CPT CODE: [id number] CT ORBIT/SELLA/[place] [id number] CT temporal bones without contrast 04/29/2018 HISTORY: Left ear and mastoid pain PROCEDURE: 1 mm axial images through through the liver without contrast. 1 mm coronal and sagittal reconstructed images were performed. DLP: 186.5 No prior exams are available for comparison FINDINGS: In the right temporal bone, external auditory canal, tympanic membranes, ossicles, semicircular canals, cochlea, internal auditory canal, and mastoid air cells have a normal appearance. Scutum is intact. No soft tissue within the mesotympanum or hypotympanum is noted. No bony dehiscence or sclerosis is noted. The visualized bilateral ethmoid air cells contain mild fluid. Small left maxillary mucous retention cyst is noted. No air-fluid level in the visualized paranasal sinuses is noted. In the left temporal bone, there is some debris in the medial aspect of the left external auditory canal. Soft tissue abuts the inferior aspect of the ossicles. The ossicles maintain a normal configuration. The internal auditory canal, cochlea, semicircular canals appear normal. Minimal inferior left mastoid fluid is noted. The scutum is intact. No bony de hiscence or sclerosis is noted. IMPRESSION: 1. Mild sof t tissue in left hypotympanum abutting ossicles. Mild left mastoid fluid . This is compatible with otomastoiditis. 2. No bony destruction. 3. Normal right temporal bone. SL: [id number] at 1209 Reported and signed by: Shaun Soto M.D. PAGE 1 Natalie d Report (CONTINUED) Name: CAMMY RICHARDSON [facility] : 1960 Age/S: 58 / F [address] [place] [address] Bl Unit #: [id number] Loc: [place] [address] Phys: Jenniffer Richard Acct: [id number] Dis Date: Status: REG ER PHONE #: [phone] Exam Date: 04/29/2018 1 151 FAX #: [phone] Reason: L EAR/MASTOID PAIN EXAMS: CPT CODE: [id number] CT ORBIT/SELLA/[place] [address] <Continued> CC: Silver Fajardo MD; Jenniffer Richard Technologist:RT Anival(R) CTDI: DLP: Trnscb Date/Time: 04/29/2018 (1209) [email or web address] Orig Print D/T: S: 04/29/2018 (1214) CTDI: DLP: PAGE 2 Signed Report COMPREHENSIVE METABOLIC [id number] 10:12:00* Test Item Value Reference Range Comments SODIUM (test code=NA) 142 mEq/L 134-147 POTASSIUM (test code=K) 3.8 mEq/L 3.4-5.0 CHLORIDE (test code=CL) 110 mEq/L 100-108 CARBON DIOXIDE (test code=CO2) 30 mEq/L 21-33 ANION GAP (test code=GAP) 6 0-20 GLUCOSE (test code=GLU) 107 mg/dL 70-110 BLOOD UREA NITROGEN (test code=BUN) 10 mg/dL 7-18 GLOMERULAR FILTRATION RATE (test code=GFR) 68.9 90-95 Units of measure=ml/min/1.73 m2 CREATININE (test code=CREAT) 1.0 mg/dL 0.6-1.3 TOTAL PROTEIN (test code=PROT) 7.0 g/dL 6.4-8.2 ALBUMIN (test code=ALB) 3.30 g/dL 3.4-5.0 CALCIUM (test code=CA) 8.6 mg/dL 8.0-10.5 BILIRUBIN TOTAL (test code=BILT) 0.30 mg/dL 0.0-1.0 SGOT/AST (test code=AST) 16 IUnit/L 15-37 SGPT/ALT (test code=ALT) 34 IUnit/L 15-65 ALKALINE PHOSPHATASE TOTAL (test code=ALKP) 106 IUnit/L 20-125 COMPREHENSIVE METABOLIC [id number] 10:09:00* Test Item Value Reference Range Comments SODIUM (test code=NA) 142 mEq/L 134-147 POTASSIUM (test code=K) 3.8 mEq/L 3.4-5.0 CHLORIDE (test code=CL) 110 mEq/L 100-108 CARBON DIOXIDE (test code=CO2) 30 mEq/L 21-33 ANION GAP (test code=GAP) 6 0-20 GLUCOSE (test code=GLU) 107 mg/dL 70-110 BLOOD UREA NITROGEN (test code=BUN) 10 mg/dL 7-18 GLOMERULAR FILTRATION RATE (test code=GFR) 68.9 90-95 Units of measure=ml/min/1.73 m2 CREATININE (test code=CREAT) 1.0 mg/dL 0.6-1.3 TOTAL PROTEIN (test code=PROT) g/dL 6.4-8.2 ALBUMIN (test code=ALB) 3.30 g/dL 3.4-5.0 CALCIUM (test code=CA) 8.6 mg/dL 8.0-10.5 BILIRUBIN TOTAL (test code=BILT) mg/dL 0.0-1.0 SGOT/AST (test code=AST) 16 IUnit/L 15-37 SGPT/ALT (test code=ALT) 34 IUnit/L 15-65 ALKALINE PHOSPHATASE TOTAL (test code=ALKP) IUnit/L 20-125 CBC W/AUTO [id number] 09:51:00* Test Item Value Reference Range Comments WHITE BLOOD CELL (test code=WBC) 5.48 x10 3/uL 4.5-11.0 RED BLOOD CELL (test code=RBC) 4.28 x10 6/uL 3.54-5.02 HEMOGLOBIN (test code=HGB) 13.5 g/dL 11.0-15.0 HEMATOCRIT (test code=HCT) 42.1 % 33.0-45.0 MEAN CELL VOLUME (test code=MCV) 98.4 fL 81.0-99.0 MEAN CELL HGB (test code=MCH) 31.5 pg 27.0-33.0 MEAN CELL HGB CONCETRATION (test code=MCHC) 32.1 g/dL 33.0-37.0 RED CELL DISTRIBUTION WIDTH CV (test code=RDW) 13.4 % 11.5-14.5 RED CELL DISTRIBUTION WIDTH SD (test code=RDW-SD) 48.7 fL 37.0-54.0 PLATELET COUNT (test code=PLT) 381 x10 3/uL 150-400 MEAN PLATELET VOLUME (test code=MPV) 9.6 fL 7.0-9.0 NEUTROPHIL % (test code=NT%) 42.5 % 56.0-77.0 IMMATURE GRANULOCYTE % (test code=IG%) 0.2 % 0.0-2.0 LYMPHOCYTE % (test code=LY%) 43.6 % 14.0-32.0 MONOCYTE % (test code=MO%) 7.7 % 4.8-9.0 EOSINOPHIL % (test code=EO%) 5.3 % 0.3-3.7 BASOPHIL % (test code=BA%) 0.7 % 0.0-2.0 NUCLEATED RBC % (test code=NRBC%) 0.0 % 0-0 NEUTROPHIL # (test code=NT#) 2.33 x10 3/uL 2.0-7.6 IMMATURE GRANULOCYTE # (test code=IG#) 0.01 x10 3/uL 0.00-0.03 LYMPHOCYTE # (test code=LY#) 2.39 x10 3/uL 1.0-3.8 MONOCYTE # (test code=MO#) 0.42 x10 3/uL 0.1-0.8 EOSINOPHIL # (test code=EO#) 0.29 x10 3/uL 0.0-0.2 BASOPHIL # (test code=BA#) 0.04 x10 3/uL 0.0-0.2 NUCLEATED RBC # (test code=NRBC#) 0.00 x10 3/uL 0.0-0.1 MANUAL DIFF REQUIRED (test code=MDIFF) NO [id number] 10:40:00* Test Item Value Reference Range Comments GLUBED (test code=GLUBED) 88 MG/DL 70-110 Performed by certified laminating machine operator at [facility] - CT HEAD/BRAIN W/O [id number] 19:07:00 FAX: Silver Hurtado [phone] [place]: St: REG FAX: Candido Adam [phone] FAX: Skylar Smith MD [phone] Name: DEBRACAMMY RAMÍREZ [facility] : 1960 Age/S: 58/F [address] [facility] Unit: [id number] Loc: [place], [place] Phys: Candido Brewster CLINICAL RESEARCH TECHNICIAN [id number] Acct: [id number] Dis Date: Status: REG ER PHONE #: [phone] Exam Date: 04/07/2018 1838 FAX #: [phone] Reason: head ache EXAMS: CPT CODE: [id number] CT HEAD/BRAIN W/O CONT 32700 EXAM: CT head without contrast Location: B2 COMPARISON: Left-sided headache/ear ache INDICATION: CT head on 04/07/2015 TECHNIQUE: Axial images of the brain were performed with 2.5 mm slices, wi th coronal and sagittal reformats. Images were reviewed in brain and bone windows. DISCUSSION: No intracranial mass, hemorrha ge, hydrocephalus, midline shift, or herniation is seen. No abnormal atten uation is seen. No calvarial fracture or scalp contusion is identified. Included portions of the orbits are unremarkable. The visualized paranasa l sinuses are unremarkable. Mastoid air cells are patent. Middle and ext ernal ears are patent. IMPRESSION: 1. Unremarkabl e CT head. 2. Mastoid air cells and middle and external ears are unrema rkable bilaterally. One or more of the follo wing dose reduction techniques were used: Automated exposure control, ad justment of the mA and/or kV according to patient size, and/or utilizati on of iterative reconstruction technique. DLP: 850 mGy-cm CTDI: 51 mGy at 1907 Reported and signed by: Shaun Steele M.D. PAGE 1 Signed Report (CONTINUED) FAX: Tiago Hurtadoul-Lety [phone] [place]: St: REG FAX: Candido Adam [phone] FAX: Skylar Smith MD [phone] Name: TIANNA DuboseCAMMY ANN [facility] : 1960 Age/S: 58/F [address] [facility] Unit: [id number] c: DEMETRI [place], [place] Phys: Candido Brewster P [id number] Acct: [id number] Dis Date: Status: REG ER PHONE #: [phone] Exam Date: 04/07/2018 1838 FAX #: [phone] Vanita son: head ache EXAMS: CPT CODE: [id number] CT HEAD/BRAIN W/O CONT 83765 <Continued> CC: Silver Fajardo MD; Candido Brewster NP; Skylar Smith MD Technologist: SARA DOUGLAS Trnscrd Dt/Tm: 04/07/2018 (190) [email or web address] Orig Print D/T: S: 04/07/2018 (1910 PAGE 2 Signed Report
--- OUTSIDE RECORDS SUMMARY | 2019-06-14 08:32 | XMS REPORT | Summary of Care ---
Author Author [facility] - [facility] Organization [facility] - Health Address Unknown Phone Unavailable Care Team Providers Care Single End Sewer Name Role Phone Jeremías Virk Unavailable Gianna Tuttle MD PCP Reason for Referral * (Routine) Referred By Contact Referred To Contact Status Reason Specialty Diagnoses / Procedures Zbigniew Vick MD [address] [place] [id number] New Request Location Rheumatology Diagnoses Preference Polyarthralgia P rocedures CONSULT/REFERRAL RHEUMATOLOGY Reason for Visit * Reason Comments Follow-up Fibromyalgia Encounter Details Care Team Description Date Type Department Zbigniew Vick MD [address] [place] [id number] Kathy Nova MD [address] [place] [id number] Polyarthralgia (Primary Dx); Fibromyalgia; Chronic fatigue; Elevated CK; Generalized OA; SOPHIE (obstructive sleep apnea); Neuropathic pain 10/13/2018 Office Visit [facility] Internal Medicine [facility] [address] [place] [address] Allergies Comments Active Allergy Reactions Severity Noted Date Heparin Nausea and/or 09/02/2015 Vomiting documented as of this encounter (statuses as of 10/15/2018) Medications End Date Status Medication Sig Dispensed Refills Start Date Active PEPTO-BISMOL 262 MG ORAL 1 by mouth 14 days 0 TAB two times a 7 day Active PROTONIX 40 MG ORAL TBEC 1 tab bid 0 Active MULTI VIT W 1 tab daily 0 AR-DN-INO-LUT-THIO 0.2-1.5-0.5-50 MG ORAL TAB Active ZYRTEC ORAL None Entered 0 Active NASONEX NASAL None Entered 0 Active CLARITIN ORAL None Entered 0 Active SINGULAIR ORAL None Entered 0 Active atorvastatin (LIPITOR) 10 10 mg. 0 mg tablet 6 Active metoprolol tartrate 25 mg. 3 (LOPRESSOR) 25 mg tablet 6 Active metroNIDAZOLE (FLAGYL) 500 mg. 1 500 mg tablet 6 Active estradiol (ESTRACE) 0.01 Insert 2 g 42.5 g 0 % (0.1 mg/gram) vaginal into vagina 7 creamIndications: weekly. Postmenopausal atrophic vaginitis Active meloxicam 15 mg tablet Take 15 mg by 0 mouth daily. Active celecoxib (CELEBREX) 100 Take 100 mg 0 mg capsule by mouth 2 (two) times daily with meals. Active oxybutynin chloride 5 mg Take 1 tablet 30 tablet 3 tablet by mouth 2 7 (two) times daily. Active phenazopyridine Take 2 90 tablet 2 (PYRIDIUM) 100 mg tablets by 7 tabletIndications: mouth 3 Recurrent UTI, Chronic (three) times interstitial cystitis, daily. Lupus erythematosus, unspecified form, Fibromyalgia Active metaxalone (METAXALL) 800 Take 1 tablet 90 tablet 5 mg tablet by mouth 3 8 (three) times daily. Active gabapentin 800 mg tablet Take 1.5 135 tablet 5 tablets by 8 mouth 3 (three) times daily. Active Diclofenac Sodium Apply to 100 g 2 (VOLTAREN) 1 % gel area(s) 4 8 (four) times daily as needed (4 grams). Active uwkitxet-ppifwgzzd-kaduns Place 3 Drops 10 mL 1 ortisone otic in left ear 4 9 solutionIndications: (four) times Other infective acute daily. otitis externa of left ear Active lidocaine-prilocaine Apply to 30 g 2 (EMLA) 2.5-2.5 % area(s) as 9 creamIndications: Other needed (ear infective acute otitis itching). externa of left ear, Apply to left Itching of ear, Otalgia, ear daily. 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 documented as of this encounter Last Filed Vital Signs Reading Time Taken Comments Vital Sign 117/76 10/13/2018 9:36 AM CDT Blood Pressure 84 10/13/2018 9:36 AM CDT Pulse 36.8 C (98.3 F) 10/13/2018 9:36 AM CDT Temperature 20 10/13/2018 9:36 AM CDT Respiratory Rate - - Oxygen Saturation - - Inhaled Oxygen Concentration 111.6 kg (246 lb) 10/13/2018 9:36 AM CDT Weight 170.2 cm (5' 7") 10/13/2018 9:36 AM CDT Height 38.53 10/13/2018 9:36 AM CDT Body Mass Index documented in this encounter Patient Instructions * Patient Instructions* Kathy Nova MD - 10/13/2018 9:00 AM CDT - Blood work today - Given referral for Rheumatology outside of [facility] - may use Tylenol over the counter as needed for joint pains, not to exceed 2 gm in 24 hours - Continue following with Orthopedics spine (supposed to get injections in near future) and for shoulder pain and generalized Osteoarthritis - Continue medications from your PCP such as Gabapentin 800 mg TID, Meloxicam 15 mg daily ; Duloxetine 60 mg daily ; Skelaxin 800 mg TID - recommend lifestyle modifications such as: healthy diet, gentle stretching exe rcises such as aquatic therapy and yoga, and better sleep habits to help with ge neralized pain - Return to Clinic as needed Managing Fibromyalgia Fibromyalgia is a chronic illness that causes pain in specific points on the bod y, stiffness, and constant tiredness (fatigue). But it doesnt have to keep yo u from doing what you enjoy. You can feel better. You and your healthcare provid er can work together to develop a plan. Take medicines as directed You may be given medicinesto help reduce pain and improve sleep. Several medications are approved to treat fibromyalgia. Two were originally roxanne gnorestes to treat depression. They are duloxetine, andmilnacipran.A third, hooper d pregaballin, was developed to treat nerve pain. Other medicinesinclude pain relievers such as acetaminophen or stronger opioids. These may be prescribed cecilio rt term. Nonsteroidal anti-inflammatory drugs(NSAIDs)are used to relieve pain. These include ibuprofen and naproxen. Get exercise Gentle exercise can help lessen your pain. Try these tips: Choose activities that are gentle on your joints, such as walking, biking, an d swimming or other water exercises. Dont push yourself too hard. Build up your strength and endurance slowly, over time. Stick to it. For the most relief, exercise should become part of your daily l chas. Get a good nights rest To help you get more sleep, try the tips below: Sleep only in a bed, not on a couch or chair. Dont watch TV, read, or work in bed. Go to bed and get up at the same time each day. Try not to take naps. Dont usealcohol, caffeine, or tobacco for at least 3 hours before going to bed. Dont drinkfluids in the evening to avoid having to get up to urinate. Other things you can do No one knows what causes fibromyalgia. But stress, poor eating habits, and extra weight can make it worse. These tips may help you feel better: Eat a balanced diet with plenty of fruits and vegetables, whole grains, lean protein, and low-fat or nonfat dairy products. Maintain a healthy weight. Learn ways to reduce or manage the stress in your life. Ask your healthcare provider for resources to help you make changes. Or check out the resources below. Resources Arthritis Foundation www.arthritis.org National Fibromyalgia Association www.fmaware.org [place] Fibromyalgia Syndrome Association www.afsafund.org Date Last Reviewed: 07/22/201719999612-[address] [employer] [place] [address] 7. All rights reserved. This information is not intended as a substitute for pro fessional medical care. Always follow your healthcare professional's instruction s. Understanding Fibromyalgia People with fibromyalgia tend to have at least 11 of the 18 tender points shown above. Fibromyalgia is a condition that causespain at specific pointson the body, stiffness, and fatigue. What are the symptoms of fibromyalgia? In most cases, you will have tender points on your body. These points are very s ore, especially when touched. Finding several of these points helps your healthc are provider diagnose fibromyalgia. Along with the tender points, you may have some or all of the following symptoms : Constant tiredness (fatigue), even after a full nights sleep (nonrestorati ve sleep) A burning or throbbing pain in many parts of the body (this pain may vary dur ing the day) Stiffness or aching all over your body Numbness or tingling in your arms and legs Trouble sleeping Bowel problems (bloating, diarrhea, constipation) Headaches Depression How is fibromyalgia diagnosed? There is no lab test to diagnosefibromyalgia. Instead, your healthcare provide r will take your health history and examine your joints and muscles. Certain cri teria are used when diagnosing fibromyalgia. Symptoms need to be present for at least 3 months. Tests may be done to rule out other conditions with similar symp toms.Then you and your providercan design a plan to help you manage your sym ptoms. How is fibromyalgia treated? Several medicinesare approved to treat fibromyalgia. Two were originally made to treat depression. They are duloxetine, andmilnacipran.A third, called pre gaballin, was developed to treat nerve pain. Certain medicines used to treat dep ression have been helpfulwith fibromyalgia. Other medicinesinclude pain reli demond such as acetaminophen or stronger opioids. These may be prescribed short t erm. Nonsteroidal anti-inflammatory drugs (NSAIDs) are used to relieve pain. Thesei nclude ibuprofen and naproxen. Getting enough sleep, regular exercise, and eating a healthy diet can help manag e symptoms. A form of talk therapy calledcognitive behavioral therapy can be h elpful for fibromyalgia. Some people find alternative treatments such as massage , chiropractic treatments, biofeedback, or acupuncture also help with symptoms. Date Last Reviewed: 07/22/201719991785-[address] [employer] [place] [address], [place], [place] [address] 7. All rights reserved. This information is not intended as a substitute for pro fessional medical care. Always follow your healthcare professional's instruction s. Fibromyalgia Fibromyalgia is a chronic condition.It causes pain and tenderness in connectiv e tissues.This causes muscle pain. Often, there are also many tender areas thr oughout the body.Symptoms may also include stiffness and feelings of numbness and tingling. Symptoms may be worse upon waking up. They may increase with poor sleep, heavy activity, cold or damp weather, anxiety, or stress. People with fibromyalgia often feel tired. They may have trouble sleeping. Other symptoms include morning stiffness, headaches, and painful menstrual periods. S ome people have problems with thinking clearly and changes in memory. The cause of fibromyalgia is not known.Symptoms are similar to that of other d iseases.These include rheumatoid arthritis, low thyroid, chronic fatigue syndr ome, and Lyme disease.In some cases, these diseases may occur together. Fibromyalgia is often treated with medicines. You and your healthcare provider c an discuss the medicine that may work best for you.You may have to try more th an one medicine or combination of medicines before you find what works for you. Home care If yourhealthcare providerhas prescribed or recommended medicines, take t hem as directed. Rest as needed. Try to get enough sleep. If you have trouble sleeping, discus s this with your healthcare provider. Be active. Regular exercise can help manage symptoms. Some options include wa lking, swimming, and biking. Strengthening exercises may also be helpful. Talk t o your healthcare provider about the best ways to be active. Follow a healthy diet. Limit caffeine and alcohol. If you smoke, ask yourhe althcare provider for help to stop. Notice how your body reacts to stress. Learn to listen to your body signals. This will help you take action before the stress becomes severe. Learn relaxation techniques. Also consider joining a stress reduction program or class. Talk to your healthcare provider about trying complementary treatments. These include acupuncture, hypnosis, and biofeedback. Yoga and dorothy chi may be helpful. Ask your healthcare provider about cognitive behavioral therapy (CBT). This t ype of counseling canhelp people with fibromyalgia cope better with their illn ess. Follow-up care Follow up with your healthcare provider or as advised by our staff. In many case s, fibromyalgia is best treated with a team approach. This may involve your pr [facility] care provider, a water sponger, a physical therapist, wolf mental healt h professional. For more information:National [place] of Arthritis and Musculoskeletal and S kin Diseases (NIAMS)www.niams.nih.gov 112-210-3152 When to seek medical advice Contact your healthcare provider right away if any of these occur: Symptoms getting worse or new symptoms developing You feel hopeless, helpless, or lose interest in day-to-day life Date Last Reviewed: 04/21/201619996946-[address] [employer] [place] [address] 7. All rights reserved. This information is not intended as a substitute for pro fessional medical care. Always follow your healthcare professional's instruction s. documented in this encounter Progress Notes * Los Amin - 10/13/2018 9:00 AM CDT 10/13/[address] Nova, I examined this patient with Dr. Nova. I agree with resident's note as written. Have spent 10 mins on exam, 40 minutes going through all of her symptoms, differ entials for each symptoms, all of her previous labs results and meaning of each one, various treatment modalities RTC PRN based on labs, e mail sent to neurology to help patient with the tinglin g sensation her hands and over all generalized weakness LOS AMIN MD pager [phone] doctor # [id number] * Kathy Nova MD - 10/13/2018 9:00 AM CDT 10/13/2018 Chief Complaint/Reason for Visit: follow-up visit for Fibromyalgia, polyneuropa thy, Generalized Osteoarthritis HPI: Vicki Treadwell is a 58 year old Black or female with past medical history listed below, presenting to clinic today, as mentioned above. She reports widespread neuropathic pains as "pins and needles" sensations in her face, hands, and feet. She also reports joint pains in her neck, shoulders, elbows, knees, feet, and an kles with intermittent swelling. She feels "a lot of swelling internally" which makes her whole body feel "tight" . States she is frustrated dealing with these symptoms and that she has not yet re ceived a diagnosis. She also has chronic neck pain and right rotator cuff issues diagnosed a few yea rs ago. She has intermittent numbness and tingling in right arm and right hand. She has received physical therapy in the past, and felt it helped somewhat. She is following with Orthopedics. Has chronic fatigue, persistent insomnia. She is on Meloxicam 15 mg daily; Duloxetine 60 mg daily; Skelaxin 800 mg TID fro m her ordering providers. 11/2017 - Seen by Dr. Jarvis She complains of intermittent pain and swelling "all over," ongoing for a year a nd worsening over past few months. Involves both muscles and joints - shoulders, knees, hands, hips and feet. She feels "puffy" at times in her face, arms and c magana. States the swelling is usually not visible, and is more "internal". 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 No weakn ess with climbing stairs (although she is limited due to knee pain). She is frus trated dealing with these symptoms and that she has not yet received a diagnosis . She also has chronic neck pain and right rotator cuff issues diagnosed a few yea rs ago. She has intermittent numbness and tingling in right arm and right hand. She has received physical therapy in the past, and felt it helped somewhat. She is following with Orthopedics. She was seen by Neurology yesterday. She has scheduled for EMG/NCV testing. She is chronically fatigued. States she is sleeping okay without any inssues, bu t does not wake up refreshed. States she doesn't snore, never had a sleep study. She is on Meloxicam 15 mg daily ; Duloxetine 60 mg daily ; Skelaxin 800 mg TID. She is also on Atorvastatin 10 mg daily, since February 2017, but reports her sym ptoms started way before that. REVIEW OF SYSTEMS General - Positive for fatigue and Negative for generalized weakness, malaise an d weight loss HEENT - Positive for dry eyes and dry mouth and Negative for blurry vision, eye pain, eye redness and oral ulcers Cardiovascular - Negative for chest pain and palpitations Respiratory - Negative for cough, dyspnea and wheezing Gastrointestinal - Negative for abdominal pain, bloating, constipation and diarr hea Genitourinary - Negative for dysuria and hematuria Skin - Negative for rash and Raynaud's phenomenon Neuro - Positive for numbness, tingling and weakness and Negative for seizures Hematologic - Negative for blood clots, easy bruising and history of low blood c ounts Psych - Negative for anxiety, depression and hallucinations HISTORY Past Medical History: Diagnosis Date Abnormal uterine bleeding Anemia Anxiety Autoimmune disorder Endometriosis Esophageal reflux Fibromyalgia Helicobacter pylori (H. pylori) 12/08/2006 Leiomyoma of uterus Menstrual disorder Pap smear abnormality of cervix PID (pelvic inflammatory disease) Urinary incontinence Urinary tract infection, site not specified hx 06/27 Past Surgical History: Procedure Laterality Date CRYOSURGERY ANY SITE ENDOMETRIAL ABLATION HYSTERECTOMY 2010 MYOMECTOMY (SHX) SALPINGECTOMY 2010 Family History Problem Relation Age of Onset Diabetes Mother Hypertension Mother Respiratory Father Heart Father CA Leukemia Maternal Grandmother Social History Socioeconomic History Marital status: Spouse name: Not on file Number of children: Not on file Years of education: 15 Highest education level: Not on file Occupational History 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 Employer: UNEMPLOYED Social Needs Financial resource strain: Not on file Food insecurity: Worry: Not on file Inability: Not on file Transportation needs: Medical: Not on file Non-medical: Not on file Tobacco Use Smoking status: Former Smoker Packs/day: 0.50 Years: 5.00 Pack years: 2.50 Types: Cigarettes Last attempt to quit: 08/05/2006 Years since quittin.2 Smokeless tobacco: Never Used Tobacco comment: sep 2006, 1 pack last for 4-5 days, for 5 yrs Substance and Sexual Activity Alcohol use: No Drug use: No Sexual activity: Never control/protection: None Lifestyle Physical activity: Days per week: Not on file Minutes per session: Not on file Stress: Not on file Relationships Social connections: Talks on phone: Not on file Gets together: Not on file Attends zoroastrianism service: Not on file Active member of club or organization: Not on file Attends meetings of clubs or organizations: Not on file Relationship status: Not on file Intimate partner violence: Fear of current or ex partner: Not on file Emotionally abused: Not on file Physically abused: Not on file Forced sexual activity: Not on file Other Topics Concern Service No Blood Transfusions No Caffeine Concern No Occupational Exposure No Hobby Hazards No Sleep Concern Yes Comment: Insomnia Stress Concern No Weight Concern Yes Special Diet No Back Care No Exercise Yes Bike Helmet Yes Seat Belt Yes Self-Exams No Social History Narrative No history of physical/sexual abuse. Patient reports being sexually abstinent since age 30. Allergies Allergen Reactions Heparin Nausea and/or Vomiting Current Outpatient Medications on File Prior to Visit Medication Sig Dispense Refill lidocaine 4% 4 % topical solution Take 5 gtts to the left ear TIDPRN itching 1 Bottle 2 lidocaine-prilocaine (EMLA) 2.5-2.5 % cream Apply to area(s) as needed (ear itching). Apply to left ear daily. 30 g 2 nvyaskwg-wxlkggsev-gmmgxalhbdqsii otic solution Place 3 Drops in left ear 4 (four) times daily. 10 mL 1 Diclofenac Sodium (VOLTAREN) 1 % gel Apply to area(s) 4 (four) times daily as needed (4 grams). 100 g 2 gabapentin 800 mg tablet Take 1.5 tablets by mouth 3 (three) times daily. 13 5 tablet 5 metaxalone (METAXALL) 800 mg tablet Take 1 tablet by mouth 3 (three) times d aily. 90 tablet 5 phenazopyridine (PYRIDIUM) 100 mg tablet Take 2 tablets by mouth 3 (three) t imes daily. 90 tablet 2 celecoxib (CELEBREX) 100 mg capsule Take 100 mg by mouth 2 (two) times daily with meals. oxybutynin chloride 5 mg tablet Take 1 tablet by mouth 2 (two) times daily. 30 tablet 3 meloxicam 15 mg tablet Take 15 mg by mouth daily. estradiol (ESTRACE) 0.01 % (0.1 mg/gram) vaginal cream Insert 2 g into vagin a weekly. 42.5 g 0 atorvastatin (LIPITOR) 10 mg tablet 10 mg. 0 metoprolol tartrate (LOPRESSOR) 25 mg tablet 25 mg. 3 metroNIDAZOLE (FLAGYL) 500 mg tablet 500 mg. 1 CLARITIN ORAL None Entered NASONEX NASAL None Entered SINGULAIR ORAL None Entered ZYRTEC ORAL None Entered MULTI VIT W QT-YT-YVY-LUT-THIO 0.2-1.5-0.5-50 MG ORAL TAB 1 tab daily PROTONIX 40 MG ORAL TBEC 1 tab bid PEPTO-BISMOL 262 MG ORAL TAB 1 by mouth two times a day 14 days 0 No current facility-administered medications on file prior to visit. PHYSICAL EXAM BP 117/76 (BP Location: Left arm, Patient Position: Sitting, BP CUFF SIZE: Adult Large) | Pulse 84 | Temp 36.8 C (98.3 F) (Oral) | Resp 20 | Ht 5' 7" (1 .702 m) | Wt 246 lb (111.6 kg) | LMP 12/10/2016 | BMI 38.53 kg/m General: Alert, Oriented to name, place and time, No apparent distress Psych: Mood and affect congruent Eyes: Pupils equal round, reactive to light, Sclera non injected, anicteric Ears, Nose, Throat, Mouth: Oral mucosa moist with good salivary pool; no oral or nasal ulcers or erythema;no parotid enlargement Skin: No rashes noted Neck: No lymphadenopathy Cardiovascular: Regular S1, S2; normal rate and rhythm; no murmurs/rubs/gallops appreciated; no lower extremity edema Respiratory: clear to ausculation bilaterally, no wheezes or crackles Abdomen: Soft, nontender, nondistended with normoactive bowel sounds Neuro: Normal proximal and distal muscle strength; able to rise from chair witho ut assistance; Cranial nerves 2-12 grossly intact Musculoskeletal: Hands: Normal, No swelling, tenderness, warmth, erythema, present at the PIPs, DIPs, MCPs. OA changes: sizeable heberden and tim nodes. Fist makin % bilaterally Wrists: Normal. No swelling, tenderness, warmth, erythema. Bilateral ROM: Karli l. Elbows: Normal. No swelling, tenderness, warmth, erythema. No nodules. Bilatera l ROM: Normal. Shoulders: + Right shoulder joint tenderness. Restricted ROM due to pain. +impin gement tests. Feet: Normal and bilateral MTP squeeze negative. Ankles: Normal. No swelling, tenderness, warmth, erythema. Bilateral ROM: Karli l. Knees: Normal. Bony enlargement / crepitus negative. No swelling, tenderness, w armth, erythema. No joint effusion. Bilateral ROM: Normal. Hips: Normal and bilateral ROM: Normal. Tender points: Present in the knee, lateral epicondyle, low cervical and trapez ius for a total of 8 of 18 tender points (more tender on Right > Left). 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 The right median motor nerve was unremarkable. ? The right ulnar motor nerve was unremarkable. ? The right peroneal with recording from EDB motor nerve was unremarkable. ? The right tibial motor nerve was unremarkable. ? The right median sensory nerve was unremarkable. ? The right ulnar sensory nerve was unremarkable. ? The right sural sensory nerve was unremarkable. Needle EMG: the patient was not able to tolerate full exam Conclusions: Incomplete study. 12/2017 XR knees: Unchanged mild bilateral medial compartment knee joint osteoarthrosis. Bilateral tibial spine hypertrophy. Bilateral knees normal alignment. Trace right suprapatellar knee joint effusion ASSESSMENT ICD-10-CM ICD-9-CM 1. Polyarthralgia M25.50 719.49 2. Fibromyalgia M79.7 729.1 3. Chronic fatigue R53.82 780.79 4. Elevated CK R74.8 790.5 5. Generalized OA M15.9 715.00 6. SOPHIE (obstructive sleep apnea) G47.33 327.23 7. Neuropathic pain M79.2 729.2 Overall Plan: Polyarthralgia (primary encounter diagnosis) Fibromyalgia Generalized OA Neuropathic pain Comment: Pt has widespread aches and pains including "pins and needles" sensatio ns all over the body, along with "tightness" all over her muscles. Given negativ e autoimmune workup so far, normal EMG, etc so far, her complaints appear relate d to Fibromyalgia, polyneuropathy, Generalized Osteoarthritis, myofascial pain s yndrome. Plan: - Will check: Vit D, Vit B12, Mag, Phos, CK, Aldolase, ISIDRO - may use Tylenol over the counter as needed for joint pains, not to exceed 2 gm in 24 hours - continue Gabapentin 800 mg TID per PCP - Continue following with Orthopedics spine (supposed to get injections in near future) and for shoulder - Continue Meloxicam 15 mg daily ; Duloxetine 60 mg daily ; Skelaxin 800 mg TID - per PCP - recommend lifestyle modifications such as: healthy diet, gentle stretching exe rcises such as aquatic therapy and yoga, and better sleep habits to help with ge neralized pain - CC'ed clinic visit note to Neurology (Dr. Resendiz), per patient request, to assi st with any other possible neuropathic medications (as appropriate) for her wide spread neuropathic pain Chronic fatigue SOPHIE Comment: Chronic fatigue likely 2/2 Fibromyalgia and SOPHIE. Plan: - continue cpap for SOPHIE and management per PCP Elevated CK Comment: appears baseline for her. No muscle weakness on exam. Autoimmune workup negative. Ref. Range 12/27/2006 16:02 01/05/2007 02:29 06/10/2017 11:31 CK Latest Ref Range: 33 - 194 U/L 194 210 (H) 238 (H) Plan: - monitor RTC PRN KATHY NOVA MD Rheumatology Fellow, PGY-5 Pager: [phone] documented in this encounter Plan of Treatment Care Team Description Date Type Specialty Sam Jarvis [address] [place] [address] [phone] 12/22/2018 Office Visit Rheumatology Resendiz, Chilvana V, MD [address] [place] [address] 03/06/2019 Office Visit Neurology Date/Time Name Type Priority Associated Diagnoses 10/13/2018 10:21 AM CDT VITAMIN D, 25-OH LAB Routine Polyarthralgia 10/13/2018 10:21 AM CDT ANTI-NUCLEAR ANTIBODY LAB Routine Polyarthralgia SCREEN Health Maintenance Due Date Last Done Comments DTaP,Tdap,and Td Vaccines 1979 (1 - Tdap) MAMMOGRAM 2000 COLONOSCOPY 2010 Zoster Recombinant 2010 Vaccine (SHINGRIX) (1 of 2) PAP SMEAR 11/23/2011 11/22/2008, 09/06/2007, 02/03/2007 LUNG CANCER SCREEN: 2015 Recommended for age 55-80 with 30 + pack year history INFLUENZA VACCINE (#1) 2018 HEPATITIS C (HCV) SCREEN Completed 12/06/2006 PNEUMOCOCCAL 0-64 YEARS Aged Out No longer eligible based COMBINED SERIES on patient's age to complete this topic documented as of this encounter Procedures Comments Procedure Name Priority Date/Time Associated Diagnosis VITAMIN B12, LEVEL Routine 10/13/2018 Polyarthralgia 10:21 AM CDT MAGNESIUM Routine 10/13/2018 Polyarthralgia 10:21 AM CDT CREATINE KINASE Routine 10/13/2018 Polyarthralgia 10:21 AM CDT PHOSPHORUS Routine 10/13/2018 Polyarthralgia 10:21 AM CDT ALDOLASE Routine 10/13/2018 Polyarthralgia 10:21 AM CDT documented in this encounter Results * PHOSPHORUS (10/13/2018 10:21 AM CDT) PHOSPHORUS 3.8 2.5 - 5.0 mg/dL [facility] Specimen Blood Performing Organization Address City/State/Zipcode Phone Number [facility] CLIA: [id number], [address] [place] [address] [facility] * MAGNESIUM (10/13/2018 10:21 AM CDT) MAGNESIUM 2.2 1.7 - 2.4 mg/dL [facility] Specimen Blood Performing Organization Address City/[facility] Phone Number [facility] CLIA: [id number], [address] [place] [phone] [facility] * ALDOLASE (10/13/2018 10:21 AM CDT) ALDOLASE 4.2 1.5 - 8.1 U/L [facility] Comment: REFERENCE INTERVAL: Aldolase Access complete set of age- and/or gender-specific reference intervals for this test in the [facility] Directory ([employer]). Performed by Check, [address] [place] [address] [id number] [email or web address], Clinton Arreaga MD, Lab. Director Specimen Blood Performing Organization Address [facility] Phone Number [address] [phone] * CREATINE KINASE (10/13/2018 10:21 AM CDT) CK 212 (H) 33 - 194 U/L [facility] Specimen Blood Performing Organization Address [facility] Phone Number [facility] CLIA: [id number], [address] [place] [phone] [facility] * VITAMIN B12, LEVEL (10/13/2018 10:21 AM CDT) VIT B12 578 240 - 930 pg/mL [facility] Specimen Blood Narrative Performed At [employer] has been reported to cause a positive bias, interpret results relative to [facility] patient's use of biotin. SERVICES Performing Organization Address City/State/Zipcode Phone Number [facility] CLIA: [id number], [address] [place] [phone] [facility] documented in this encounter Visit Diagnoses Diagnosis Polyarthralgia - Primary Pain in joint, multiple sites Fibromyalgia Mylagia and myositis, unspecified Chronic fatigue Other malaise and fatigue Elevated CK Other nonspecific abnormal serum enzyme levels Generalized OA Generalized osteoarthrosis, unspecified site SOPHIE (obstructive sleep apnea) Obstructive sleep apnea (adult) (pediatric) Neuropathic pain Neuralgia, neuritis, and radiculitis, unspecified documented in this encounter Insurance Type Payer Benefit Subscriber ID Effective Phone Address Plan / Dates [facility] [id number] 2015-P [place] [facility] resent documented as of this encounter 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
--- OUTSIDE RECORDS SUMMARY | 2019-06-14 08:32 | XMS REPORT | Summary of Care ---
Author Author [facility] - Health Organization [facility] - Health Address Unknown Phone Unavailable Care Team Providers Care Big Data Developer Name Role Phone Jeremías Virk Unavailable Gianna Tuttle MD PCP Encounter Details Care Team Description Date Type Department Doctor Unassigned, [place] [address] [place] [address] 10/13/2018 Orders Only [facility] [address] [place] [address] Allergies Comments Active Allergy Reactions Severity Noted Date Heparin Nausea and/or 09/02/2015 Vomiting documented as of this encounter (statuses as of 10/13/2018) Medications End Date Status Medication Sig Dispensed Refills Start Date Active PEPTO-BISMOL 262 MG ORAL 1 by mouth 14 days 0 TAB two times a 7 day Active PROTONIX 40 MG ORAL TBEC 1 tab bid 0 Active MULTI VIT W 1 tab daily 0 QK-SQ-VIP-LUT-THIO 0.2-1.5-0.5-50 MG ORAL TAB Active ZYRTEC ORAL [...] times daily as needed (4 grams). 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 [place] [address] [phone] 10/13/2018 Office Visit Rheumatology Sam Jarvis [address] [place] [address] [phone] 12/22/2018 Office Visit Rheumatology Elisabet Resendiz MD [address] [place] [phone] 03/06/2019 Office Visit Neurology Health Maintenance Due Date Last Done Comments [...] Comments Procedure Name Priority Date/Time Associated Diagnosis [facility] PATIENT FINANCIAL Routine 10/13/2018 POLICY 8:49 AM CDT documented in this encounter Results Not on filedocumented in this encounter Insurance Type Payer Benefit Subscriber ID Effective Phone Address Plan / Dates [facility] [id number] 2015-P [place] IHC resent documented as of this encounter Advance Directives Patient Partner Explanation Type Date Recorded Advance Directives and Living Will
--- OUTSIDE RECORDS SUMMARY | 2019-06-14 08:32 | XMS REPORT | Continuity of Care Document ---
Author Author [facility] [email or web address] 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 [employer] Name Role Phone Fransico Martin Unavailable Unavailable Allergies, Adverse Reactions, Alerts Substance Reaction Status DULOXETINE HCL Active Medications Medication Instructions Dosage Effective Dates (start - stop) Status Comments methocarbamol 500 mg tablet take 2 tablet by oral route 2 times every day as needed - Active [Pat Resp=0 pct;] atorvastatin 20 mg tablet take 1 tablet by oral route every day at bed time - Active [Pat Resp=0 pct;] Cymbalta 20 mg capsule,delayed release take 1 capsule by oral route 2 times every day 20 MG - Active [Pat Resp=0 pct;] metoprolol tartrate 50 mg tablet take 1 tablet by oral route 2 times every day with meals 50 MG - Active [Pat Resp=0 pct;] Xifaxan 550 mg tablet take 1 tablet by oral route 3 times every day 550 MG - Active [Pat Resp=0 pct;] Celexa 20 mg tablet take 1 tablet by oral route every day 20 MG - Active [Pat Resp=0 pct;] gabapentin 300 mg ORAL TABLET 3 po tid - Active [Pat Resp=0 pct;] aspirin 81 mg tablet,delayed release take 1 tablet by oral route every day 81 MG - Active [Pat Resp=0 pct;] triamcinolone acetonide 0.1 % topical cream apply by topical route 2 times every day a thin layer to the affected area(s) 0.00 - No Longer Active [Pat Resp=0 pct;] fluconazole 150 mg tablet TAKE 1 TABLET BY ORAL ROUTE DAILY - No Longer Active [Pat Resp=0 pct;] metronidazole 0.75 % vaginal gel insert 1 applicatorful by vaginal route every day at bedtime x 7 days - No Longer Active [Pat Resp=0 pct;] Pyridium 100 mg tablet take 1 tablet by oral route 3 times every day after meals as needed 100 MG - No Longer Active [Pat Resp=0 pct;] Problems Condition Effective Dates (start - stop) Clinical Status Comments Fibromyositis - Active Irritable bowel syndrome - Active Mapped from [facility] Chronic Conditions table on 07/17/2013 by the ICD9 to SNOMED Bulk Mapping Utility. The mapped diagnosis code was Irritable bowel syndrome, 564.1, added by Khanh Fajardo, with responsible provider Khanh Fajardo MD. Onset date 05/08/2013. Procedures Procedure Date No information Results Test Name Date and Time Measure Units Reference Range Abnormal Flag Status Comments No information Advance Directives Directive Yes / No Effective Date File Name No information Encounters Encounter Description Practice Location Reason(s) For Visit Diagnoses Date Provider Providers Copied on Encounter [facility], [address], [place], [place], [address], tel:[phone] [facility] Body mass index (BMI) 38.0-38.9, adultEmphysemaOther chronic painUnspecified subjective visual disturbancesFibromyalgiaEssential (primary) hypertension Greer Bateman. [address] [facility], [address], [place], [place], [address]. tel:[phone] Referring Provider: Cash [address], [place], [place], [address]. tel:[phone] [facility], [address], [place], [place], [address], tel:[phone] [facility] Parag Katz. [address], [address], [place], [place], [address]. tel:[phone] Referring Provider: Cash Asencio [address], [place], [place], [address]. tel:[phone] [facility], [address], [place], [place], [address], [place] tel:[phone] [facility] Body mass index (BMI) 38.0-38.9, adultChest pain Parag Katz. [address], [address], [place], [place], [address]. tel:[phone] Referring Provider: Cash As[address], [place], [place], [address]. tel:[phone] [facility], [address], [place], [place], [address], [place] tel:[phone] [facility] Body mass index (BMI) 37.0-37.9, adultLow back painDifficulty in swallowing Parag Katz. Evi-Serina Torrez [address], [address], [place], [place], [address]. tel:[phone] Referring Provider: Cash Asencio [address], [place], [place], [address]. tel:[phone] [facility], [address], [place], [place], [address], [place] tel:[phone] [facility] Abnormal echoDysuria Parag Katz. [address], [place], [place], [address]. tel:[phone] Referring Provider: Cash [address], [place], [place], [address]. tel:[phone] [facility], [address], [place], [place], [address], [place] tel:[phone] [facility] Fibromyalgia Parag Katz. [address], [address], [place], [place], [address]. tel:[phone] Referring Provider: Cash Asencio [address], [place], [place], [address]. tel:[phone] [facility], [address], [place], [place], [address], [place] tel:[phone] [facility] Parag Katz. [address], [address], [place], [place], [address]. tel:[phone] Referring Provider: Cash Asencio [address], [place], [place], [address]. tel:[phone] [facility], [address], [place], [place], [address], [place] tel:[phone] [facility] Body mass index (BMI) 39.0-39.9, adultEssential (primary) hypertensionHyperlipidemiaVitamin D deficiency, unspecifiedDisorder of thyroidRash Parag Katz. [address], [place], [place], [address]. tel:[phone] Referring Provider: Cash As[address], [place], [place], [address]. tel:[phone] [facility], [address], [place], [place], [address], [place] tel:[phone] [facility] Body mass index (BMI) 39.0-39.9, adultOtalgia, left ear Parag Katz. [address], [address], [place], [place], [address]. tel:[phone] Referring Provider: Alicia [address], [place], [place], [address]. tel:[phone] [facility], [address], [place], [place], [address], tel:[phone] [facility] Otalgia, left ear Scotty Davidson. [address], [place], [place], [address]. tel:[phone] Referring Provider: Cash [address], [place], [place], [address]. tel:[phone] [facility], [address], [place], [place], [address], tel:[phone] [facility] Otalgia, left earBody mass index (BMI) 39.0-39.9, adult Parag Katz. [address], [address], [place], [place], [address]. tel:[phone] Referring Provider: Alicia [address], [place], [place], [address]. tel:[phone] [facility], [address], [place], [place], [address], [place] tel:[phone] [facility] Body mass index (BMI) 39.0-39.9, adultOtalgia, left ear Parag Katz. [address], [address], [place], [place], [address]. tel:[phone] Referring Provider: Alicia [address], [place], [place], [address]. tel:[phone] [facility], [address], [place], [place], [address], tel:[phone] [facility] Otalgia, left earBody mass index (BMI) 39.0-39.9, adultTachycardia, unspecified Parag Katz. [address], [address], [place], [place], [address]. tel:[phone] Referring Provider: Evi Asencio-Serina Tor[address], [place], [place], [address]. tel:[phone] [facility], [address], [place], [place], [address], tel:[phone] [facility] Otalgia, left earBody mass index (BMI) 39.0-39.9, adultSore throat Parag Katz. [address], [address], [place], [place], [address]. tel:[phone] Referring Provider: Trell Asencio50-[address], [place], [place], [address]. tel:[phone] [facility], [address], [place], [place], [address], [place] tel:[phone] [facility] Body mass index (BMI) 39.0-39.9, adultOtalgia, left ear Parag Katz. [address], [address], [place], [place], [address]. tel:[phone] Referring Provider: Trell Asencio[address]- [address], [place], [place], [address]. tel:[phone] [facility], [address], [place], [place], [address], tel:[phone] [facility] Otalgia, left earBody mass index (BMI) 39.0-39.9, adult Parag Katz. [address], [address], [place], [place], [address]. tel:[phone] Referring Provider: Alicia Asenciotonja [address], [place], [place], [address]. tel:[phone] [facility], [address], [place], [place], [address], tel:[phone] [facility] Body mass index (BMI) 39.0-39.9, adultOtalgia, left earEssential (primary) hypertension Parag Katz. Evi- Shan [address], [address], [place], [place], [address]. tel:[phone] Referring Provider: Evi Asencio-Serina [address], [place], [place], [address]. tel:[phone] [facility], [address], [place], [place], [address], [place] tel:[phone] [facility] Body mass index (BMI) 38.0-38.9, adultBack pain Scotty Davidson. [address], [place], [place], [address]. tel:[phone] Referring Provider: Trell Barragan- [address], [place], [place], [address]. tel:[phone] [facility], [address], [place], [place], [address], tel:[phone] [facility] Abnormal level of hormones in specimens from other organs, systems and tissues Parag Katz. [address], [address], [place], [place], [address]. tel:[phone] Referring Provider: Cash Asencio Shan [address], [place], [place], [address]. tel:[phone] [facility], [address], [place], [place], [address], [place] tel:[phone] [facility] Body mass index (BMI) 38.0-38.9, adultEssential (primary) hypertensionPain in unspecified lower leg Parag Katz. [address], [address], [place], [place], [address]. tel:[phone] Referring Provider: Cash Asencio [address], [place], [place], [address]. tel:[phone] [facility], [address], [place], [place], [address], tel:[phone] [facility] Hormone replacement therapy (postmenopausal) Parag Katz. [address], [address], [place], [place], [address]. tel:[phone] Referring Provider: Cash Asencio [address], [place], [place], [address]. tel:[phone] [facility], [address], [place], [place], [address], [place] tel:[phone] [facility] Body mass index (BMI) 38.0-38.9, adultEssential (primary) hypertensionChronic vulvovaginitisIBS Parag Katz. [address], [address], [place], [place], [address]. tel:[phone] Referring Provider: Cash Asencio [address], [place], [place], [address]. tel:[phone] [facility], [address], [place], [place], [address], [place] tel:[phone] [facility] AnxietyUnspecified subjective visual disturbances Parag Katz. [address], [address], [place], [place], [address]. tel:[phone] Referring Provider: Gianna Tuttle, Evi-Serina [address], [place], [place], [address]. tel:[phone] [facility], [address], [place], [place], [address], tel:[phone] [facility] Neoplasm of uncertain behavior of liver Parag Katz. [address], [address], [place], [place], [address]. tel:[phone] Referring Provider: Gianna Tuttle, Evi-Serina [address], [place], [place], [address]. tel:[phone] [facility], [address], [place], [place], [address], [place] tel:[phone] [facility] Hepatic cyst Scotty Davidson. [address], [place], [place], [address]. tel:[phone] Referring Provider: Gianna Tuttle, Evi-Serina [address], [place], [place], [address]. tel:[phone] [facility], [address], [place], [place], [address], tel:[phone] [facility] Chronic vulvovaginitis Parag Katz. [address], [address], [place], [place], [address]. tel:[phone] Referring Provider: Gianna Tuttle, Trell[address], [place], [place], [address]. tel:[phone] [facility], [address], [place], [place], [address], [place] tel:[phone] [facility] Pain in unspecified knee Parag Katz. [address], [address], [place], [place], [address]. tel:[phone] Referring Provider: Gianna Tuttle, [address], [place], [place], [address]. tel:[phone] [facility], [address], [place], [place], [address], [place] tel:[phone] [facility] Pain in unspecified knee Parag Katz. [address], [address], [place], [place], [address]. tel:[phone] Referring Provider: Gianna Tuttle, Trell[address], [place], [place], [address]. tel:[phone] [facility], [address], [place], [place], [address], [place] tel:[phone] [facility] Pain in unspecified knee Parag Katz. [address], [address], [place], [place], [address]. tel:[phone] Referring Provider: Evi Asencio-[address], [place], [place], [address]. tel:[phone] [facility], [address], [place], [place], [address], [place] tel:[phone] [facility] Pain in unspecified knee Scotty Davidson. [address], [place], [place], [address]. tel:[phone] Referring Provider: Gianna Tuttle, Trell[address], [place], [place], [address]. tel:[phone] [facility], [address], [place], [place], [address], [place] tel:[phone] [facility] FibromyalgiaMuscle weakness (generalized)Other chronic pain Martín Kidd. [address], [place], [place], [address]. tel:[phone] Referring Provider: Evi Asencio- [address], [place], [place], [address]. tel:[phone] [facility], [address], [place], [place], [address], [place] tel:[phone] [facility] Pain in unspecified knee Parag Katz. [address], [address], [place], [place], [address]. tel:[phone] Referring Provider: Evi Asencio-C [address], [place], [place], [address]. tel:[phone] [facility], [address], [place], [place], [address], [place] tel:[phone] [facility] Body mass index (BMI) 39.0-39.9, adultBack painFibromyalgia Parag Katz. [address], [address], [place], [place], [address]. tel:[phone] Referring Provider: Trell Asencio50-[address], [place], [place], [address]. tel:[phone] [facility], [address], [place], [place], [address], tel:[phone] [facility] Body mass index (BMI) 39.0-39.9, adultBack painPain in left kneeChronic vulvovaginitis Parag Katz. [address], [address], [place], [place], [address]. tel:[phone] Referring Provider: Cash [address]encioett [address], [place], [place], [address]. tel:[phone] [facility], [address], [place], [place], [address], tel:[phone] [facility] Pain in left knee Scotty Davidson. [address], [place], [place], [address]. tel:[phone] Referring Provider: Cash Asencio [address], [place], [place], [address]. tel:[phone] [facility], [address], [place], [place], [address], tel:[phone] [facility] Body mass index (BMI) 38.0-38.9, adultBack painCKD Parag Katz. [address], [address], [place], [place], [address]. tel:[phone] Referring Provider: Cash Asencio [address], [place], [place], [address]. tel:[phone] [facility], [address], [place], [place], [address], [place] tel:[phone] [facility] Body mass index (BMI) 38.0-38.9, adultChronic vulvovaginitisLow back pain Scotty Davidson. [address], [place], [place], [address]. tel:[phone] Referring Provider: Evi Barragan-Serina [address], [place], [place], [address]. tel:[phone] [facility], [address], [place], [place], [address], [place] tel:[phone] [facility] Cervical disc disorder at C4-C5 level with radiculopathyBack painFatigue Parag Katz. [address], [address], [place], [place], [address]. tel:[phone] Referring Provider: Evi Asencio-Serina [address], [place], [place], [address]. tel:[phone] [facility], [address], [place], [place], [address], [place] tel:[phone] [facility] Body mass index (BMI) 38.0-38.9, adultPain in left hip Parag Katz. [address], [address], [place], [place], [address]. tel:[phone] Referring Provider: Alicia [address], [place], [place], [address]. tel:[phone] [facility], [address], [place], [place], [address], tel:[phone] [facility] EdemaOther chronic pain Parag Katz. [address], [address], [place], [place], [address]. tel:[phone] Referring Provider: Cash [address], [place], [place], [address]. tel:[phone] [facility], [address], [place], [place], [address], tel:[phone] [facility] Body mass index (BMI) 38.0-38.9, adultPain in left knee Parag Katz. [address], [address], [place], [place], [address]. tel:[phone] Referring Provider: Alicia Asencio [address], [place], [place], [address]. tel:[phone] [facility], [address], [place], [place], [address], tel:[phone] [facility] Body mass index (BMI) 38.0-38.9, adultElevated urine level of drug Parag Katz. Evi-Serina Torrez [address], [place], [place], [address]. tel:[phone] Referring Provider: Cash [address], [place], [place], [address]. tel:[phone] [facility], [address], [place], [place], [address], [place] tel:[phone] [facility] Body mass index (BMI) 38.0-38.9, adultPain in unspecified joint Nelson Pugh. [address], [address], [place], [place], [address]. tel:[phone] Referring Provider: Cash Villa [address], [place], [place], [address]. tel:[phone] [facility], [address], [place], [place], [address], [place] tel:[phone] [facility] Other chronic painPain in unspecified jointFibromyalgia Parag Katz. [address], [address], [place], [place], [address]. tel:[phone] Referring Provider: Cash As[address]io [address], [place], [place], [address]. tel:[phone] [facility], [address], [place], [place], [address], [place] tel:[phone] [facility] Body mass index (BMI) 38.0-38.9, adultPain in unspecified lower legEdema [facility], [address], [place], [place], [address], [place] tel:[phone] [facility] Body mass index (BMI) 38.0-38.9, adultPrediabetesVitamin D deficiency, unspecifiedOther chronic painFibromyalgiaOther hypoglycemiaPain in right shoulderPain in right handCervical disc disorder at C4-C5 level with radiculopathy Parag Katz. [address], [place], [place], [address]. tel:[phone] Referring Provider: Cash Asencio [address], [place], [place], [address]. tel:[phone] [facility], [address], [place], [place], [address], tel:[phone] [facility] Back painOther chronic painPain in unspecified shoulderOther cervical disc degeneration, unspecified cervical region Parag Katz. [address], [place], [place], [address]. tel:[phone] Referring Provider: Cash Asencio [address], [place], [place], [address]. tel:[phone] [facility], [address], [place], [place], [address], tel:[phone] [facility] Body mass index (BMI) 37.0-37.9, adultChronic vulvovaginitis Parag Katz. [address], [place], [place], [address]. tel:[phone] Referring Provider: Cash Asencio [address], [place], [place], [address]. tel:[phone] [facility], [address], [place], [place], [address], [place] tel:[phone] [facility] Unspecified abdominal pain Parag Katz. [address], [address], [place], [place], [address]. tel:[phone] Referring Provider: Evi Asencio-Serina Torrez [address], [place], [place], [address]. tel:[phone] [facility], [address], [place], [place], [address], [place] tel:[phone] [facility] Body mass index (BMI) 36.0-36.9, adultPelvic painChronic vulvovaginitis Nelson Pugh. [address] [address], [address], [place], [place], [address]. tel:[phone] Referring Provider: Evi Villa-C [address], [place], [place], [address]. tel:[phone] [facility], [address], [place], [place], [address], [place] tel:[phone] [facility] Dysuria Parag Katz. [address], [address], [place], [place], [address]. tel:[phone] Referring Provider: Evi Asencoi-Serina OquendoShan F [address], [place], [place], [address]. tel:[phone] [facility], [address], [place], [place], [address], [place] tel:[phone] [facility] Body mass index (BMI) 38.0-38.9, adultChest painFeeling of foreign body in throat Parag Katz. [address], [place], [place], [address]. tel:[phone] Referring Provider: Gianna Tuttle, Evi-Serina [address], [place], [place], [address]. tel:[phone] [facility], [address], [place], [place], [address], [place] tel:[phone] [facility] Encounter for screening for cancer of colon Parag Katz. [address], [address], [place], [place], [address]. tel:[phone] Referring Provider: Gianna Tuttle, Cash [address], [place], [place], [address]. tel:[phone] [facility], [address], [place], [place], [address], [place] tel:[phone] [facility] Acute sinusitis, unspecified Parag Katz. [address], [address], [place], [place], [address]. tel:[phone] Referring Provider: Cash Asecnio [address], [place], [place], [address]. tel:[phone] [facility], [address], [place], [place], [address], [place] tel:[phone] [facility] Encounter for screening, unspecifiedLow back pain Parag Katz. [address], [address], [place], [place], [address]. tel:[phone] Referring Provider: Cash Asencio [address], [place], [place], [address]. tel:[phone] [facility], [address], [place], [place], [address], [place] tel:[phone] [facility] External hemorrhoidChronic vulvovaginitisEncounter for screening for cancer of colon Parag Katz. [address], [place], [place], [address]. tel:[phone] Referring Provider: Evi Asencio-Serina Torrez Siobhan [address], [place], [place], [address]. tel:[phone] [facility], [address], [place], [place], [address], [place] tel:[phone] [facility] Essential (primary) hypertensionFibromyalgiaLow back painHypoglycemia Scotty Davidson. [address], [place], [place], [address]. tel:[phone] Referring Provider: Khanh Fajardo, [address], [place], [place], [address]. tel:[phone] [facility], [address], [place], [place], [address], [place] tel:[phone] [facility] Other chronic cystitis with hematuriaOther chronic painFibromyalgia Parag Katz. [address], [address], [place], [place], [address]. tel:[phone] Referring Provider: Cash Asenciotonja [address]cc[address], [place], [place], [address]. tel:[phone] [facility], [address], [place], [place], [address], [place] tel:[phone] [facility] Essential (primary) hypertensionLow back painPain in right shoulderPain in right armPain in right handOther cervical disc degeneration, unspecified cervical regionFibromyalgiaUnspecified abdominal pain Scotty Davidson. [address], [address], [place], [place], [address]. tel:[phone] Referring Provider: Khanh Fajardo, [address], [place], [place], [address]. tel:[phone] [facility], [address], [place], [place], [address], [place] tel:[phone] [facility] Diverticulitis of large intestine w/o perforation w/ hemorrhage [facility], [address], [place], [place], [address], [place] tel:[phone] [facility] Cervical disc disorder at C4-C5 level with radiculopathy [facility], [address], [place], [place], [address], [place] tel:[phone] [facility] Pain in right shoulderCervical disc disorder at C4-C5 level with radiculopathyVaginitis [facility], [address], [place], [place], [address], [place] tel:[phone] [facility] VaginitisLower abdominal pain, unspecifiedBody mass index (BMI) 37.0-37.9, adult Nelson Pugh. [address], [place], [place], [address]. tel:[phone] Referring Provider: Cash Villa Siobhan [address], [place], [place], [address]. tel:[phone] [facility], [address], [place], [place], [address], tel:[phone] [facility] Radiculopathy of lumbosacral region Flor Sandoval. [address], [place], [place], [address]. tel:[phone] Referring Provider: Khanh Fajardo, [address], [place], [place], [address]. tel:[phone] [facility], [address], [place], [place], [address], tel:[phone] [facility] HyperlipidemiaChronic vulvovaginitis Scotty Davidson. [address], [address], [place], [place], [address]. tel:[phone] Referring Provider: Khanh Fajardo, [address], [place], [place], [address]. tel:[phone] [facility], [address], [place], [place], [address], tel:[phone] [facility] EpistaxisHeadachePostmenopausal bleeding Timoteo Daly. [address] [facility] [facility], [address], [place], [place], [address]. tel:[phone] Referring Provider: Malika Mahmood, [address], [place], [place], [address]. tel:[phone] [facility], [address], [place], [place], [address], tel:[phone] [facility] Chronic vaginitisPersonal history of cervical dysplasiaSystemic lupus erythematosus, unspecifiedFibromyalgiaDiverticulitis of large intestine w/o perforation w/ hemorrhageOther disorder of blood in diseases classified elsewhereCystic disease of liver [facility], [address], [place], [place], [address], tel:[phone] [facility] Other chronic cystitis with hematuriaDiverticulosis of large intestine without perforation or abscess without bleedingBack painChronic constipation [facility], [address], [place], [place], [address], [place] tel:[phone] [facility] Urinary frequencyHematuria [facility], [address], [place], [place], [address], [place] tel:[phone] [facility] Diverticular disease of colon NOSCystitis with hematuriaHyperlipidemia Greer Bateman. [address] [employer], [address], [place], [place], [address]. tel:[phone] Referring Provider: Fransico Butterfield, Trell50[address] [facility] [address], [place], [place], [address]. tel:[phone] [facility], [address], [place], [place], [address], [place] tel:[phone] [facility] Other fatigue [facility], [address], [place], [place], [address], [place] tel:[phone] [facility] Cystitis, unspecified with hematuria [facility], [address], [place], [place], [address], [place] tel:[phone] [facility] Dysuria [facility], [address], [place], [place], [address], [place] tel:[phone] [facility] Congenital malformation of spine NOSGastro-esophageal reflux disease without esophagitisVaginitis NOSJock itchFamily history of ischemic heart diseasePersonal history of other diseases of the circulatory system [facility], [address], [place], [place], [address], [place] tel:[phone] [facility] Vaginitis NOSJock itch [facility], [address], [place], [place], [address], [place] tel:[phone] [facility] HematuriaInterstitial cystitis (chronic) with hematuriaVaginitis [facility], [address], [place], [place], [address], [place] tel:[phone] [facility] DysuriaLumbagoAbdominal pain [facility], [address], [place], [place], [address], [place] tel:[phone] [facility] Cystitis, unspecified with hematuria [facility], [address], [place], [place], [address], [place] tel:[phone] [facility] VaginitisDysuriaLumbago [facility], [address], [place], [place], [address], [place] tel:[phone] [facility] VaginitisAbdominal painVaginitis, vulvitis and vulvovaginitis in diseases classified elsewhereDysuria [facility], [address], [place], [place], [address], [place] tel:[phone] [facility] DysuriaIrritable bowel syndrome with diarrheaOther cervical disc degeneration, unspecified cervical regionUnspecified menopausal and perimenopausal disorderVaginitis [facility], [address], [place], [place], [address], [place] tel:[phone] [facility] Low back painPain in left kneePain in right knee Scotty Wheatley [address] [facility], [place], [place], [address]. tel:[phone] [facility], [address], [place], [place], [address], [place] tel:[phone] [facility] Muscle weakness (generalized) Scotty Wheatley [address], [place], [place], [address]. tel:[phone] [facility], [address], [place], [place], [address], [place] tel:[phone] [facility] Unspecified abdominal painDiverticulosis of large intestine without perforation or abscess without bleedingHemorrhoidFibromyalgia [facility], [address], [place], [place], [address], [place] tel:[phone] [facility] Vaginitis [facility], [address], [place], [place], [address], [place] tel:[phone] [facility] Unspecified abnormal findings in urineOther cervical disc degeneration, unspecified cervical regionLow back painMuscle spasm of back [facility], [address], [place], [place], [address], [place] tel:[phone] [facility] Urinary frequencyPain in left kneePain in right kneeFibromyalgiaAcute vaginitis [facility], [address], [place], [place], [address], [place] tel:[phone] [facility] Crohn's disease of small intestine w/o complication Greer Bateman. [address] [facility], [address], [place], [place], [address]. tel:[phone] [facility], [address], [place], [place], [address], [place] tel:[phone] [facility] Rheumatoid arthritisHypertensionHyperlipidemiaColitisMyalgia [facility], [address], [place], [place], [address], [place] tel:[phone] [facility] Frequency of micturitionLow back painOther cervical disc degeneration, unspecified cervical region [facility], [address], [place], [place], [address], [place] tel:[phone] [facility] Low back painLower abdominal painDiverticulosis of large intestine without perforation or abscess without bleedingAnxietyColitis [facility], [address], [place], [place], [address], [place] tel:[phone] [facility] ColitisLow back painDiverticulosis of large intestine without perforation or abscess without bleedingLower abdominal pain [facility], [address], [place], [place], [address], [place] tel:[phone] [facility] Timoteo Daly. [address], [place], [place], [address]. tel:[phone] Referring Provider: Evi Constantino-C [address], [place], [place], [address]. tel:[phone] [facility], [address], [place], [place], [address], [place] tel:[phone] [facility] Frequency of micturitionProteinuria Timoteo Daly. [address], [address], [place], [place], [address]. tel:[phone] Referring Provider: Evi Constantino-C Shan Si[address], [place], [place], [address]. tel:[phone] [facility], [address], [place], [place], [address], [place] tel:[phone] [facility] Low back painOther allergy, initial encounter Scotty Davidson. [address], [address], [place], [place], [address]. tel:[phone] Referring Provider: Khanh Fajardo [address], [place], [place], [address]. tel:[phone] [facility], [address], [place], [place], [address], [place] tel:[phone] [facility] Hemorrhoid Referring Provider: Evi Barragan-Serina [address], [place], [place], [address]. tel:[phone] [facility], [address], [place], [place], [address], tel:[phone] [facility] Pain in unspecified joint Scotty Davidson. [address], [place], [place], [address]. tel:[phone] Referring Provider: Evi Barragan-Serina Shan [address], [place], [place], [address]. tel:[phone] [facility], [address], [place], [place], [address], tel:[phone] [facility] Hormone replacement therapy (postmenopausal)AnxietyChronic vaginitisDiverticulosis of large intestine without perforation or abscess without bleeding Scotty Davidson. [address], [place], [place], [address]. tel:[phone] Referring Provider: Evi Barragan-Serina Shan [address], [place], [place], [address]. tel:[phone] [facility], [address], [place], [place], [address], [place] tel:[phone] [facility] Other cervical disc degeneration, unspecified cervical regionDiverticulosis of large intestine without perforation or abscess without bleedingChronic vaginitis Scotty Davidson. [address], [place], [place], [address]. tel:[phone] Referring Provider: Evi Barragan-Serina Shan [address], [place], [place], [address]. tel:[phone] [facility], [address], [place], [place], [address], [place] tel:[phone] [facility] Low back painGERD Scotty Davidson. [address], [place], [place], [address]. tel:[phone] Referring Provider: Trell Barragan50-C [address], [place], [place], [address]. tel:[phone] [facility], [address], [place], [place], [address], [place] tel:[phone] [facility] Abdominal PainDiverticulosis of colonRectal bleedingIncrease in the number of lymphocytes (type of white blood cell)NeutropeniaPain in joint involving multiple sitesCervical degenerative disc disease [facility], [address], [place], [place], [address], [place] tel:[phone] [facility] Urinary frequencyLow back painRectal bleeding [facility], [address], [place], [place], [address], [place] tel:[phone] [facility] Diverticulosis of colon Scotty Davidson. [address], [place], [place], [address]. tel:[phone] Referring Provider: Trell Barragan[address]-C [address], [place], [place], [address]. tel:[phone] [facility], [address], [place], [place], [address], [place] tel:[phone] [facility] Vaginitis and vulvovaginitis in diseases classified elsewhereMuscle strength reducedDiverticulosis of colonUrinary frequency Scotty Davidson. [address], [place], [place], [address]. tel:[phone] Referring Provider: Trell Barragan-C Shan [address], [place], [place], [address]. tel:[phone] [facility], [address], [place], [place], [address], [place] tel:[phone] [facility] GERD Scotty Davidson. [address], [place], [place], [address]. tel:[phone] Referring Provider: Trell Barragan- Shan [address], [place], [place], [address]. tel:[phone] [facility], [address], [place], [place], [address], tel:[phone] [facility] DysuriaIrritable ColonIncrease in the number of lymphocytes (type of white blood cell) Scotty Davidson. [address], [place], [place], [address]. tel:[phone] Referring Provider: Trell Barragan- Shan [address], [place], [place], [address]. tel:[phone] [facility], [address], [place], [place], [address], [place] tel:[phone] [facility] Abdominal PainCervical degenerative disc disease [facility], [address], [place], [place], [address], [place] tel:[phone] [facility] Pain in joint involving multiple sitesIncrease in the number of lymphocytes (type of white blood cell)Vitamin deficiency [facility], [address], [place], [place], [address], [place] tel:[phone] [facility] DysuriaAbnormal medical findingsHormone replacement therapy (postmenopausal) [facility], [address], [place], [place], [address], [place] tel:[phone] [facility] Irritable ColonHormone replacement therapy (postmenopausal) Scotty Davidson. [address], [place], [place], [address]. tel:[phone] Referring Provider: Khanh Fajardo, [address], [place], [place], [address]. tel:[phone] [facility], [address], [place], [place], [address], tel:[phone] [facility] Abdominal PainGERD Gerer Bateman. [address], [address], [place], [place], [address]. tel:[phone] Referring Provider: Fransico Butterfield, [address], [place], [place], [address]. tel:[phone] [facility], [address], [place], [place], [address], [place] tel:[phone] [facility] MICROSCOPIC HEMATURIAHormone replacement therapy (postmenopausal) [facility], [address], [place], [place], [address], [place] tel:[phone] [facility] Abdominal PainConstipation, unspecifiedUrinary frequencyVaginitis [facility], [address], [place], [place], [address], [place] tel:[phone] [facility] Hormone replacement therapy (postmenopausal)Menopausal DisorderVaginitis and vulvovaginitis [facility], [address], [place], [place], [address], [place] tel:[phone] [facility] Menopausal DisorderAbdominal PainNonspecific low blood pressure reading [facility], [address], [place], [place], [address], [place] tel:[phone] [facility] Menopausal DisorderHormone replacement therapy (postmenopausal)Mood disorder in conditions classified elsewhere [facility], [address], [place], [place], [address], [place] tel:[phone] [facility] Corns and callosities [facility], [address], [place], [place], [address], [place] tel:[phone] [facility] Hormone replacement therapy (postmenopausal)Menopausal DisorderGERD [facility], [address], [place], [place], [address], [place] tel:[phone] [facility] Hormone replacement therapy (postmenopausal)GERD [facility], [address], [place], [place], [address], [place] tel:[phone] [facility] Constipation, unspecified Scotty Davidson. [address] [facility], [place], [place], [address]. tel:[phone] Referring Provider: Khanh Fajardo [address] [facility] [address], [place], [place], [address]. tel:[phone] [facility], [address], [place], [place], [address], [place] tel:[phone] [facility] GERDAbdominal PainHormone replacement therapy (postmenopausal) [facility], [address], [place], [place], [address], [place] tel:[phone] [facility] Abdominal Pain [facility], [address], [place], [place], [address], [place] tel:[phone] [facility] Vaginitis and vulvovaginitisHormone replacement therapy (postmenopausal) Scotty Davidson. [address]on [facility], [address], [place], [place], [address]. tel:[phone] Referring Provider: Khanh Fajardo, [address] [facility] [address], [place], [place], [address]. tel:[phone] [facility], [address], [place], [place], [address], tel:[phone] [facility] Vaginitis and vulvovaginitis in diseases classified elsewhere [facility], [address], [place], [place], [address], [place] tel:[phone] [facility] Vaginitis and vulvovaginitisGERDHormone replacement therapy (postmenopausal) [facility], [address], [place], [place], [address], tel:[phone] [facility] DysuriaVaginitis and vulvovaginitis in diseases classified elsewhere [facility], [address], [place], [place], [id number], tel:[phone] [place] [facility] Vaginitis and vulvovaginitisGERDHormone replacement therapy (postmenopausal) Family History Family Member Diagnosis Age At Onset Mother Hyperlipidemia Brother Alcoholism Mother Asthma Mother Obesity Mother Alzheimer's Disease Mother Depression Mother Hypertension Sister Obesity Mother Diabetes mellitus Father Coronary artery disease Father Hypertension Immunizations Vaccine Date Status Comments No information Payers Payer name Insurance type Covered republican ID Authorization(s) [facility] Program CI [id number] Social History Type Description Quantity Date Captured Comments Sex Female Vital Signs Date / Time: Height Weight BMI Pulse Rate Blood Pressure Temperature Respiratory Rate Body Surface Area Head Circumference BMI percentile Pulse Ox Inhaled Ox No information Chief Complaint And Reason For Visit No information Reason For Referral Reason For Referral No information Plan Of Treatment Date Type Action Status Goal Dietary management education, guidance, and counseling completed Goal Dietary management education, guidance, and counseling completed Goal Lifestyle education regarding diet completed Goal Dietary management education, guidance, and counseling completed Goal Lifestyle education regarding diet completed Goal Lifestyle education regarding diet completed Goal Lifestyle education regarding diet completed Goal Lifestyle education regarding diet completed Goal Lifestyle education regarding diet completed Goal Lifestyle education regarding diet completed Goal Lifestyle education regarding diet completed Goal Lifestyle education regarding diet completed Goal Dietary management education, guidance, and counseling completed Goal Lifestyle education regarding diet completed Goal Lifestyle education regarding diet completed Goal Dietary management education, guidance, and counseling completed Goal Dietary management education, guidance, and counseling completed Goal Lifestyle education regarding diet completed Goal Dietary management education, guidance, and counseling completed Goal Dietary management education, guidance, and counseling completed Goal Lifestyle education regarding diet completed Goal Lifestyle education regarding diet completed Goal Lifestyle education regarding diet completed Goal Lifestyle education regarding diet completed Goal Dietary management education, guidance, and counseling completed Goal Lifestyle education regarding diet completed Goal Lifestyle education regarding diet completed Goal Dietary management education, guidance, and counseling completed Referral Ordered: Ophthalmology (related to Unspecified subjective visual disturbances) ordered Referral Ordered: Pulmonology (related to Emphysema) ordered Referral Ordered: Neurology (related to Fibromyalgia) ordered Referral Ordered: Referrals: Neurology. Evaluate and treat ordered Referral Ordered: Gastroenterology (related to Difficulty in swallowing) ordered Referral Ordered: Cardiology (related to Abnormal echo) ordered Referral Ordered: Urology (related to Dysuria) ordered Referral Ordered: Referrals: Cardiology. Evaluate and treat ordered Referral Ordered: Referrals: Urology. Evaluate and treat ordered Referral Ordered: Rheumatology (related to Fibromyalgia) ordered Referral Ordered: Referrals: CT Scan. Evaluate and treat ordered Referral Ordered: Infectious Disease (related to Otalgia, left ear) ordered Referral Ordered: Referrals: ENT. Evaluate and treat ordered Referral Ordered: Referrals: Endocrinology, Diabetes and Metabolism. Evaluate and treat ordered Referral Ordered: Vascular Surgery (related to Pain in unspecified lower leg) ordered Referral Ordered: Referrals: Ophthalmology. Evaluate and treat ordered Referral Ordered: Referrals: Gastroenterology. Evaluate and treat ordered Referral Ordered: Referrals: Obstetrics and Gynecology. Evaluate and treat ordered Referral Ordered: Referrals: MRI. Evaluate and treat ordered Referral Ordered: Referrals: Neuromuscular. Evaluate and treat ordered Referral Ordered: Radiologic examination, spine, thoracic, 2 views spine, thoracic ordered Referral Ordered: Referrals: Pulmonology. Evaluate and treat ordered Referral Ordered: Referrals: Physical Therapy. Evaluate and treat ordered Referral Ordered: Radiologic examination, hips, unilateral, 2 - 3 views with pelvis when performed Left hip ordered Referral Ordered: Referrals: Rheumatology. Evaluate and treat ordered Referral Ordered: Radiologic examination, knee, 3 views (AP, Lateral And [place] Or oblique) Left knee ordered Referral Ordered: Referrals: Orthopedic Surgery. Evaluate and treat ordered Referral Referred To: Dr Hyatt Ordered: Referrals: Rheumatology. Dr Hyatt. Evaluate and treat ordered Referral Ordered: Referrals: Pain Medicine. Evaluate and treat ordered Referral Ordered: Referrals: Vascular Surgery. Evaluate and treat ordered Referral Ordered: Radiologic examination, spine, cervical, 2 views (AP And Lateral) Bilateral spine, cervical ordered Referral Ordered: Radiologic examination, shoulder, 2 view (or more) Right shoulder ordered Referral Ordered: Radiologic Examination, hand, 2 Views Right hand ordered Referral Ordered: Radiologic examination, spine, lumbar, 2 views Bilateral spine, lumbar ordered Referral Ordered: Radiologic examination, spine, cervical, 2 views (AP And Lateral) ordered Referral Ordered: Radiologic examination, abdomen/KUB (kidney, Ureters, Bladder), Single AP View ordered Referral Ordered: Radiologic examination, knee, 3 views (AP, Lateral And [place] Or oblique) ordered Referral Ordered: Radiologic examination, spine, lumbar, 2 views ordered Referral Ordered: Radiologic examination, shoulder, 2 view (or more) Right ordered Referral Ordered: Radiologic examination, hand, 3 views (PA, Lateral, And Oblique) Bilateral ordered Referral Ordered: Referral: Radiology. Evaluate and treat. ordered Referral Ordered: Referral: Endocrinology. Evaluate and treat. ordered Referral Ordered: Referral: Podiatry. Evaluate and treat. ordered Referral Ordered: Referral: Infectious Disease. Evaluate and treat. ordered Referral Ordered: Referral: OBGYN. Evaluate and treat. ordered Referral Ordered: Referral: Gastroenterology. Evaluate and treat. ordered Appointment Vicki Treadwell BOOKED History Of Present Illness Encounter Date Complaint History Of Present Illness No information Functional Status Date Functional Assessment No information Medications Administered Medication Instructions Dosage Effective Dates (start - stop) Status Comments No information Instructions Date Instruction Additional Information Dietary management education, guidance, and counseling Related to Body mass index (BMI) 38.0-38.9, adult Dietary management education, guidance, and counseling Related to Body mass index (BMI) 38.0-38.9, adult Giving encouragement to exercise Related to Body mass index (BMI) 37.0-37.9, adult Lifestyle education regarding diet Related to Body mass index (BMI) 37.0-37.9, adult Dietary management education, guidance, and counseling Related to Body mass index (BMI) 39.0-39.9, adult Giving encouragement to exercise Related to Body mass index (BMI) 39.0-39.9, adult Lifestyle education regarding diet Related to Body mass index (BMI) 39.0-39.9, adult Lifestyle education regarding diet Related to Body mass index (BMI) 39.0-39.9, adult Giving encouragement to exercise Related to Body mass index (BMI) 39.0-39.9, adult Giving encouragement to exercise Related to Body mass index (BMI) 39.0-39.9, adult Lifestyle education regarding diet Related to Body mass index (BMI) 39.0-39.9, adult Giving encouragement to exercise Related to Body mass index (BMI) 39.0-39.9, adult Lifestyle education regarding diet Related to Body mass index (BMI) 39.0-39.9, adult Giving encouragement to exercise Related to Body mass index (BMI) 39.0-39.9, adult Lifestyle education regarding diet Related to Body mass index (BMI) 39.0-39.9, adult Lifestyle education regarding diet Related to Body mass index (BMI) 39.0-39.9, adult Giving encouragement to exercise Related to Body mass index (BMI) 39.0-39.9, adult Giving encouragement to exercise Related to Body mass index (BMI) 39.0-39.9, adult Lifestyle education regarding diet Related to Body mass index (BMI) 39.0-39.9, adult Giving encouragement to exercise Related to Body mass index (BMI) 39.0-39.9, adult Lifestyle education regarding diet Related to Body mass index (BMI) 39.0-39.9, adult Dietary management education, guidance, and counseling Related to Body mass index (BMI) 38.0-38.9, adult Giving encouragement to exercise Related to Body mass index (BMI) 38.0-38.9, adult Lifestyle education regarding diet Related to Body mass index (BMI) 38.0-38.9, adult Giving encouragement to exercise Related to Body mass index (BMI) 38.0-38.9, adult Lifestyle education regarding diet Related to Body mass index (BMI) 38.0-38.9, adult Giving encouragement to exercise Related to Body mass index (BMI) 39.0-39.9, adult Weight loss from baseline weight Related to Body mass index (BMI) 39.0-39.9, adult Dietary management education, guidance, and counseling Related to Body mass index (BMI) 39.0-39.9, adult Dietary management education, guidance, and counseling Related to Body mass index (BMI) 38.0-38.9, adult Giving encouragement to exercise Related to Body mass index (BMI) 38.0-38.9, adult Lifestyle education regarding diet Related to Body mass index (BMI) 38.0-38.9, adult Giving encouragement to exercise Related to Body mass index (BMI) 38.0-38.9, adult Weight loss from baseline weight Related to Body mass index (BMI) 38.0-38.9, adult Dietary management education, guidance, and counseling Related to Body mass index (BMI) 38.0-38.9, adult Dietary management education, guidance, and counseling Related to Body mass index (BMI) 38.0-38.9, adult Lifestyle education regarding diet Related to Body mass index (BMI) 38.0-38.9, adult Lifestyle education regarding diet Related to Body mass index (BMI) 38.0-38.9, adult Lifestyle education regarding diet Related to Body mass index (BMI) 38.0-38.9, adult Lifestyle education regarding diet Related to Body mass index (BMI) 37.0-37.9, adult Dietary management education, guidance, and counseling Related to Body mass index (BMI) 36.0-36.9, adult Lifestyle education regarding diet Related to Body mass index (BMI) 36.0-36.9, adult Lifestyle education regarding diet Related to Body mass index (BMI) 38.0-38.9, adult Dietary management education, guidance, and counseling Related to Body mass index (BMI) 37.0-37.9, adult Assessments Type Assessment Date No information Goals Health Concern Goal Type Priority Status Date No information Medical Equipment Description Device [place] Device Identifier Effective Dates (start - stop) Status No information Mental Status Date Cognitive Assessment No information Health Concerns Observation Date No information Concern Status Date No information
--- OUTSIDE RECORDS SUMMARY | 2019-06-14 08:32 | XMS REPORT | Summary of Care ---
Author Author [facility] - Health Organization [facility] - Health Address Unknown Phone Unavailable Care Team Providers Care Plow And Boring Machine Tender Name Role Phone Jeremías Virk Unavailable Gianna Tuttle MD PCP Reason for Visit * Reason Comments Assessment Appointment Encounter Details Care Team Description Date Type Department Sam Jarvis [address] [place] [address] Assessment; Appointment 10/10/2018 Telephone [facility] [address], [address] [place] [address] Allergies Comments Active Allergy Reactions Severity Noted Date Heparin Nausea and/or 09/02/2015 Vomiting documented as of this encounter (statuses as of 10/10/2018) Medications End Date Status Medication Sig Dispensed Refills Start Date Active PEPTO-BISMOL 262 MG ORAL 1 by mouth 14 days 0 TAB two times a 7 day Active PROTONIX 40 MG ORAL TBEC 1 tab bid 0 Active MULTI VIT W 1 tab daily 0 EC-ZZ-VOW-LUT-THIO 0.2-1.5-0.5-50 MG ORAL TAB Active ZYRTEC ORAL [...] times daily as needed (4 grams). Active qfvyutbl-fcgbqtven-mfzadf Place 3 Drops 10 mL 1 ortisone [...] as of this encounter (statuses as of 10/10/2018) Active Problems Problem Noted Date Polyarthralgia 06/10/2017 Generalized OA 06/10/2017 Chronic fatigue 06/10/2017 Falling hair 06/10/2017 Insomnia, persistent 06/10/2017 [facility] current use of non-steroidal anti-inflammatories (NSAID) 06/10/2017 Other disorder of menstruation and other abnormal bleeding from female 02/03/2007 genital tract Backache 12/28/2006 Overview: ICD10 Diagnosis Term Cutting Machine Operator Utility Esophageal reflux 12/27/2006 documented as of this encounter (statuses as of 10/10/2018) Social History Date Tobacco Use Types Packs/Day [...] Treatment Care Team Description Date Type Specialty Elisabet Resendiz MD [address] [place] [phone] 10/10/2018 Office Visit Neurology Kathy Levin MD [address] [place] [phone] 10/13/2018 Office Visit Rheumatology Sam Jarvis [address] [place] [phone] 12/22/2018 Office Visit Rheumatology Health Maintenance Due Date Last Done Comments [...] this topic documented as of this encounter Results Not on filedocumented in this encounter Insurance Type Payer Benefit Subscriber ID Effective Phone Address Plan / Dates Group [facility] [id number] 2015-P [place] [facility] resent documented as of this encounter Advance Directives Patient Creative Manager Explanation Type Date Recorded Advance Directives and Living Will
--- OUTSIDE RECORDS SUMMARY | 2019-06-14 08:32 | XMS REPORT | Summary of Care ---
Author Author [facility] - Health Organization [facility] - Health Address Unknown Phone Unavailable Care Team Providers Care Rn Case Manager Name Role Phone Jeremías Virk Unavailable Gianna Tuttle MD PCP Reason for Visit * Reason Comments LAB Encounter Details Care Team Description Date Type Department Zbigniew Vick MD [address] [place] [address] [id number] [place], [place] [id number] Pcp-Lab Polyarthralgia 10/13/2018 Lead Sewage Plant Operator [facility] Visit CLINICS LAB Primary [facility] [address] , [address]; [address] [place] [address] Allergies Comments Active Allergy Reactions Severity Noted [...] MULTI VIT W 1 tab daily 0 HZ-YB-RFT-LUT-THIO 0.2-1.5-0.5-50 MG ORAL TAB Active ZYRTEC ORAL [...] times daily as needed (4 grams). 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 current use of non-steroidal anti-inflammatories (NSAID) 06/10/2017 Other disorder of menstruation and other abnormal bleeding from female 02/03/2007 genital tract Backache 12/28/2006 Overview: ICD10 Diagnosis Term Power Bender Operator Utility Esophageal reflux 12/27/2006 documented as [...] Team Description Date Type Specialty Sam Jarvis [address] [place] [address] [phone] 12/22/2018 Office Visit Rheumatology Elisabet Resendiz MD [address] [place] [phone] 03/06/2019 Office Visit Neurology Health Maintenance Due [...] Results Not on filedocumented in this encounter Visit Diagnoses Diagnosis Polyarthralgia Pain in joint, multiple sites documented in this encounter Insurance Type Payer Benefit Subscriber ID Effective Phone Address Plan / Dates [facility] [id number] 2015-P [place] [employer] resent documented as of this encounter Advance Directives Patient Peoplesoft Hcm Consultant Explanation Type Date Recorded Advance Directives and Living Will
--- OUTSIDE RECORDS SUMMARY | 2019-06-14 08:32 | XMS REPORT | Summary of Care ---
Author Author [facility] - Health Organization [facility] - Health Address Unknown Phone Unavailable Care Team Providers Care Bleach Analyst Name Role Phone Jeremías Virk Unavailable Gianna Tuttle MD PCP Reason for Referral * (Routine) Referred By Contact Referred To Contact Status Reason Specialty Diagnoses / Procedures Zbigniew Vick MD [address] [place] [phone] New Request Location Rheumatology Diagnoses Preference Polyarthralgia P rocedures CONSULT/REFERRAL RHEUMATOLOGY Reason for Visit * Reason Comments Follow-up Fibromyalgia Encounter Details Care Team Description Date Type Department Zbigniew Vick MD [address] [place] [phone] Kathy Nova MD [address] [place] [phone] Polyarthralgia (Primary Dx); Fibromyalgia; Chronic fatigue; Elevated CK; Generalized OA; SOPHIE (obstructive sleep apnea); Neuropathic pain 10/13/2018 Office Visit [facility] Internal Medicine Rheumatology[facility] [address] [place] [address] Allergies Comments Active Allergy Reactions [...] MULTI VIT W 1 tab daily 0 HN-BY-BYE-LUT-THIO 0.2-1.5-0.5-50 MG ORAL TAB Active ZYRTEC ORAL [...] times daily as needed (4 grams). Active prjymeqt-tfwtgniyu-kabkhb Place 3 Drops 10 mL 1 ortisone [...] 06/10/2017 Falling hair 06/10/2017 Insomnia, persistent 06/10/2017 correction current use of non-steroidal anti-inflammatories (NSAID) 06/10/2017 Other disorder of menstruation and other abnormal bleeding from female 02/03/2007 genital tract Backache 12/28/2006 Overview: ICD10 Diagnosis Term Finance Analyst Utility Esophageal reflux 12/27/2006 documented as of [...] - Given referral for Rheumatology outside of [facility] - may use Tylenol over the counter [...] Arthritis Foundation www.arthritis.org National Fibromyalgia Association www.fmaware.org [place] Fibromyalgia Syndrome Association www.afsafund.org Date Last Reviewed: 07/22/201719998430-2671 [employer]. [address] [place] [address] 7. All rights reserved. This information is [...] also help with symptoms. Date Last Reviewed: 07/22/201719995325-8691 [employer]. [address] [place] [address], [place], [place] [address]. All rights reserved. This information is [...] team approach. This may involve your pr [facility] care provider, a brake machine operator, a physical therapist, wolf mental healt h professional. For more information:National [place] of Arthritis and Musculoskeletal and S kin Diseases (NIAMS)www.niams.nih.gov 613-402-5348 When to seek medical advice Contact your healthcare provider right away if any of these occur: Symptoms getting worse or new symptoms developing You feel hopeless, helpless, or lose interest in day-to-day life Date Last Reviewed: 04/21/201619992474-5427 [employer]. [address] [place] [address] 7. All rights reserved. This information is [...] all generalized weakness LOS AMIN MD pager [phone] doctor # [id number] * Kathy Nova MD - 10/13/2018 9:00 [...] feels "weak" all over - with hand applications support specialist and getting up from commode. No weakn [...] Mother Hypertension Mother Respiratory Father Heart Father AR Leukemia Maternal Grandmother Social History Socioeconomic History [...] file Gets together: Not on file Attends restorationist service: Not on file Active member of [...] to left ear daily. 30 g 2 itbeqfmk-dljynhtff-tkkbsabmxzcuim otic solution Place 3 Drops in left [...] ZYRTEC ORAL None Entered MULTI VIT W CG-FO-VRQ-LUT-THIO 0.2-1.5-0.5-50 MG ORAL TAB 1 tab daily [...] 1.14 LFTs normal ISIDRO neg Sheila-1 neg CANOE INSPECTOR / Richard / SSA / SSB / [...] KATHY NOVA MD Rheumatology Fellow, PGY-5 Pager: [phone] documented in this encounter Plan of Treatment Care Team Description Date Type Specialty Sam Jarvis [address] [place] [phone] 12/22/2018 Office Visit Rheumatology Resendiz, Chilvana V, MD [address] [place] [address] 03/06/2019 Office Visit Neurology Date/Time [...] CDT) PHOSPHORUS 3.8 2.5 - 5.0 mg/dL [facility] Specimen Blood Performing Organization Address City/State/Zipcode Phone Number [facility] CLIA: [id number], [address] [place] [address] [facility] * MAGNESIUM (10/13/2018 10:21 AM CDT) MAGNESIUM 2.2 1.7 - 2.4 mg/dL [facility] Specimen Blood Performing Organization Address City/[facility] Phone Number [facility] CLIA: [id number], [address] [place] [phone] [facility] * ALDOLASE (10/13/2018 10:21 AM CDT) ALDOLASE 4.2 1.5 - 8.1 U/L [facility] Comment: REFERENCE INTERVAL: Aldolase Access complete set of age- and/or gender-specific reference intervals for this test in the [employer] Laboratory Test Directory ([employer]). Performed by [facility], [address] [place] [id number] www.[employer], Clinton Arreaga MD, Lab. Director Specimen Blood Performing Organization Address [facility]v Phone Number [address] [phone] * CREATINE KINASE (10/13/2018 10:21 AM CDT) CK 212 (H) 33 - 194 U/L [facility] Specimen Blood Performing Organization Address [facility] Phone Number [facility] CLIA: [id number], [address] [place] [phone] [facility] * VITAMIN B12, LEVEL (10/13/2018 10:21 AM CDT) VIT B12 578 240 - 930 pg/mL [facility] Specimen Blood Narrative Performed At [employer] has been reported to cause a positive bias, interpret results relative to [facility] patient's use of biotin. SERVICES Performing Organization Address City/State/Zipcode Phone Number [facility] CLIA: [id number], [address] [place] [phone] [facility] documented in this encounter Visit Diagnoses [...] ID Effective Phone Address Plan / Dates [facility] [id number] 2015-P [place] [employer] resent documented as of this encounter Advance Directives Patient Valet Manager Explanation Type Date Recorded Advance Directives and Living Will
--- OUTSIDE RECORDS SUMMARY | 2019-06-14 08:32 | XMS REPORT | Summary of Care ---
Author Author [facility] - Health Organization [facility] - Health Address Unknown Phone Unavailable Care Team Providers Care Clinical Research Spec Name Role Phone Jeremías Virk Unavailable Gianna Tuttle MD PCP Reason for Referral * MRI/CAT Scan (Routine) Referred By Contact Referred To Contact Status Reason Specialty Diagnoses / Procedures Elisabet Resendiz MD [address] [place] [address] New Request Diagnostic Diagnoses Radiology Right facial numbness P rocedures MR BRAIN W WO CONTRAST Reason for Visit * Reason Comments New Patient nerve pain in face * (Routine) Referred By Contact Referred To Contact Status Reason Specialty Diagnoses / Procedures Gianna Tuttle MD [address] [place] [address] Closed Neurology Diagnoses FIRE 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 REPAIRER INSPECTOR OTHER CHRONIC PAIN P rocedures CONSULT/REFERRAL NEUROLOGY Encounter Details Care Team Description Date Type Department Elisabet Resendiz MD [address] [place] [phone] Right facial numbness (Primary Dx) 10/10/2018 Office Visit [facility] Neurology, [address] [phone] Allergies Comments Active Allergy Reactions Severity Noted Date Heparin Nausea and/or 09/02/2015 Vomiting documented as of this encounter (statuses as of 10/11/2018) Medications End Date Status Medication Sig Dispensed Refills Start Date Active PEPTO-BISMOL 262 MG ORAL 1 by mouth 14 days 0 TAB two times a 7 day Active PROTONIX 40 MG ORAL TBEC 1 tab bid 0 Active MULTI VIT W 1 tab daily 0 OG-HP-LCQ-LUT-THIO 0.2-1.5-0.5-50 MG ORAL TAB Active ZYRTEC ORAL [...] times daily as needed (4 grams). Active rclkwpkt-wmqikhqlg-muwskp Place 3 Drops 10 mL 1 ortisone [...] as of this encounter (statuses as of 10/11/2018) Active Problems Problem Noted Date Polyarthralgia 06/10/2017 Generalized OA 06/10/2017 Chronic fatigue 06/10/2017 Falling hair 06/10/2017 Insomnia, persistent 06/10/2017 USP current use of non-steroidal anti-inflammatories (NSAID) 06/10/2017 Other disorder of menstruation and other abnormal bleeding from female 02/03/2007 genital tract Backache 12/28/2006 Overview: ICD10 Diagnosis Term Baling Machine Tender Utility Esophageal reflux 12/27/2006 documented as of this encounter (statuses as of 10/11/2018) Social History Date Tobacco Use Types Packs/Day [...] Signs Reading Time Taken Comments Vital Sign 135/86 10/10/2018 11:57 AM CDT Blood Pressure 92 10/10/2018 11:57 AM CDT Pulse 36.7 C (98.1 F) 10/10/2018 11:57 AM CDT Temperature 18 10/10/2018 11:57 AM CDT Respiratory Rate 98% 10/10/2018 11:57 AM CDT Oxygen Saturation - - Inhaled Oxygen Concentration 111.4 kg (245 lb 11.2 oz) 10/10/2018 11:57 AM CDT Weight 170.2 cm (5' 7") 10/10/2018 11:57 AM CDT Height 38.48 10/10/2018 11:57 AM CDT Body Mass Index documented in this encounter Progress Notes * Elisabet Resendiz MD - 10/10/2018 12:00 PM CDT Cc: muscle tightness Vicki Richardson is a 58 year old female. HPI 10/11/19 She is a former patient of Dr. Mina. She has borderline increased CK. She was ad vised to follow up after EMG. Patient was not able to tolerate EMG and study was limited. No evidence of neuropathy. Her muscle cramps are resolved with supple mentation of vitamin D. 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 She has noticed right facial numbness. She has been complaining of righ t hip pain. Ambulates without assistance. Unsure about keeping well hydration. H as an upcoming appointment with Hand Marker expert. She has noticed ankle swe lling after starting gabapentin. She follows up with DR. Kaufman for pain managemen t. Dr. Mina`s evaluation 12/08 Vicki Richardson is a 57 year old female with pmh as above presented for eval uation of muscle pain and swelling x 2yrs. Exam with some giveway weakness but h as RUE, RLE weakness at baseline 2/2 to rotator cuff injury and spondylosis. No MRI reports as in [facility] as she reports difficutly with insrunace approval for nallely e in [facility]. She does have elevated CK but has had extensive work ups including au to immune panel for Sjogrens, lupus which were all neg. Denies any FH of neurolo gical disorder. Currently on Gabapentin 800mg TID, Skelexin 800mg TID, Duloxetin e 60mg daily Plan: - spoke to Patient regarding the need for further testing with EMG/NCV which ronni l help confirm possible myopathy. She was hesitant due to past history of intole rica to procedure which was thus aborted but she was agreeable for repeat attem pt - to c/w pain clinic Allergies Vicki is allergic to heparin. Medications Outpatient Medications Prior to Visit Medication Sig Dispense Refill lidocaine 4% 4 % topical solution Take 5 gtts to the left ear TIDPRN itching 1 Bottle 2 lidocaine-prilocaine (EMLA) 2.5-2.5 % cream Apply to area(s) as needed (ear itching). Apply to left ear daily. 30 g 2 yglynebd-eitajehwa-ivldjstnqidhrg otic solution Place 3 Drops in left [...] ZYRTEC ORAL None Entered MULTI VIT W DA-RC-ZCS-LUT-THIO 0.2-1.5-0.5-50 MG ORAL TAB 1 tab daily PROTONIX 40 MG ORAL TBEC 1 tab bid PEPTO-BISMOL 262 MG ORAL TAB 1 by mouth two times a day 14 days 0 No facility-administered medications prior to visit. Histories Past Medical History: Diagnosis Date Abnormal uterine bleeding Anemia Anxiety Autoimmune disorder Endometriosis Esophageal reflux Fibromyalgia Helicobacter pylori (H. pylori) 12/08/2006 Leiomyoma of uterus Menstrual disorder Pap smear abnormality of cervix PID (pelvic inflammatory disease) Urinary incontinence Urinary tract infection, site not specified hx 06/27 Past Surgical History: Procedure Laterality Date CRYOSURGERY ANY SITE ENDOMETRIAL ABLATION HYSTERECTOMY 2010 MYOMECTOMY (SHX) SALPINGECTOMY 2010 Social History Socioeconomic History Marital status: Spouse [...] Last attempt to quit: 08/05/2006 Years since quittin.1 Smokeless tobacco: Never Used Tobacco comment: sep [...] file Gets together: Not on file Attends judaism service: Not on file Active member of [...] reports being sexually abstinent since age 30. Family History Problem Relation Age of Onset Diabetes Mother Hypertension Mother Respiratory Father Heart Father [place] Leukemia Maternal Grandmother Review of Systems Vital Signs LMP 12/10/2016 Vitals: 10/10/18 1157 BP: 135/86 Pulse: 92 Resp: 18 Temp: 36.7 C (98.1 F) TempSrc: Oral SpO2: 98% Weight: 245 lb 11.2 oz (111.4 kg) Height: 5' 7" (1.702 m) Physical Exam Neuro exam Higher function - alert, oriented to time, place and person Language and comprehension- Follows three step commands Able to name low and high frequency words Normal repetition Cranial nerves VFF, PERRLA 3-2 Extraocular movements intact, no nystagmus Decreased facial sensation on right cheek but not complete distribution of V2. Face symmetric, facial muscle strength normal Gag reflex present, palate moves equally Tongue midline, no atrophy or fasciculation Sternocleidomastoid and Trapezius muscles strength normal Motor strength 4+/5 in all extremities proximally and distally limited with pain No atrophy/ fasciculation Sensory exam- intact to light touch, Position sensation, Pin prick and temperatu re in all extremities Romberg`s negative Coordination- finger-nose intact bilaterally, Heel- sheen intact bilaterally No dysdiadokokinesia No involuntary movements- no tremors, no rigidity or bradykinesia Reflexes- Right L eft Biceps 2+ 2+ Triceps 2+ 2+ Brachioradialis 2+ 2+ Knee 1+ 1+ Ankle 1+ 1+ Babinski`s sign Neg Neg Ankle and Knee clonus absent Gait- Normal, able to walk without assistance Results for VICKI RICHARDSON ( ) as of 10/09/2018 14:55 Ref. Range 10/31/2017 15:14 GLUCOSE Latest Ref Range: 70 - 110 mg/dL 58 (L) Results for VICKI RICHARDSON ( ) as of 10/09/2018 14:55 Ref. Range 12/27/2006 16:02 01/05/2007 02:29 06/10/2017 11:31 CK Latest Ref Range: 33 - 194 U/L 194 210 (H) 238 (H) Results for VICKI RICHARDSON ( ) as of 10/09/2018 14:55 Ref. Range 06/10/2017 11:31 ALDOLASE Latest Ref Range: 1.5 - 8.1 U/L 4.6 Results for VICKI RICHARDSON ( ) as of 10/09/2018 14:55 Ref. Range 06/10/2017 11:31 ALK PHOS Latest Ref Range: 34 - 122 U/L 84 ALT(SGPT) Latest Ref Range: 9 - 51 U/L 25 AST(SGOT) Latest Ref Range: 13 - 40 U/L 25 EMG/NCS 01/08 Conclusions: Incomplete study. Assessment/Plan 58 years old female with PMH Fibromyalgia, JRA, Inflammatory arthropathy present ed for diffuse pain for years and right cheek tingling and numbness without spe cific V2 distribution Her neurological exam is limited with pain EMG unable to tolerate, but no neuropathy Right facial numbness for 1 week MRI brain with and without contrast Fibromyalgia/Polyarthropathy Consult Rheumatology Abnormal CK AA can have high CK upto 400 No atrophy No fasciculation preserved symmetric reflexes Muscle cramps- hydration Resolved with Vit D supplement Chronic pain syndrome Follows up with Dr. Kaufman On Gabapentin by pain management which helps with pain Moa and adverse reactions including ankle swelling discussed Follow up in 3 months documented in this encounter Plan of Treatment Care Team Description Date Type Specialty Kathy Levin MD [address] [place] [phone] 10/13/2018 Office Visit Rheumatology Sam Jarvis [address] [place] [phone] 12/22/2018 Office Visit Rheumatology Elisabet Resendiz MD [address] [place] [phone] 03/06/2019 Office Visit Neurology Order Schedule Name Type Priority Associated Diagnoses Expected: 10/10/2018, Expires: 10/11/2019 MR BRAIN W WO CONTRAST IMAGING Routine Right facial numbness Health Maintenance Due Date Last Done Comments [...] filedocumented in this encounter Visit Diagnoses Diagnosis Right facial numbness - Primary Disturbance of skin sensation documented in this encounter Insurance Type Payer Benefit Subscriber ID Effective Phone Address Plan / Dates [facility] [id number] 2015-P [place] IHC resent documented as of this encounter Advance Directives Patient Hide Buffer Explanation Type Date Recorded Advance Directives and Living Will
--- OUTSIDE RECORDS SUMMARY | 2019-06-14 08:32 | XMS REPORT | Summary of Care ---
Author Author [facility] - Health Organization [facility] - Health Address Unknown Phone Unavailable Care Team Providers Care Photo Engraver Name Role Phone Jeremías Virk Unavailable Gianna Tuttle MD PCP Reason for Referral * MRI/CAT Scan (Routine) Referred By Contact Referred To Contact Status Reason Specialty Diagnoses / Procedures Elisabet Resendiz MD [address] [place] [address] New Request Diagnostic Diagnoses Radiology Right facial numbness P rocedures MR BRAIN W WO CONTRAST Reason for Visit * Reason Comments New Patient nerve pain in face * (Routine) Referred By Contact Referred To Contact Status Reason Specialty Diagnoses / Procedures Gianna Tuttle MD [address] [place] [address] Closed Neurology Diagnoses PRODUCTION ROUSTABOUT OTHER CHRONIC PAIN P rocedures CONSULT/REFERRAL NEUROLOGY Encounter Details Care Team Description Date Type Department Elisabet Resendiz MD [address] [place] [phone] Right facial numbness (Primary Dx) 10/10/2018 Office Visit [facility] Neurology, [address] [phone] Allergies Comments Active Allergy Reactions [...] MULTI VIT W 1 tab daily 0 ES-TE-OBR-LUT-THIO 0.2-1.5-0.5-50 MG ORAL TAB Active ZYRTEC ORAL [...] times daily as needed (4 grams). Active ctfynvyq-rzpezlbjm-dxstte Place 3 Drops 10 mL 1 ortisone [...] 06/10/2017 Falling hair 06/10/2017 Insomnia, persistent 06/10/2017 penitentiary current use of non-steroidal anti-inflammatories (NSAID) 06/10/2017 Other disorder of menstruation and other abnormal bleeding from female 02/03/2007 genital tract Backache 12/28/2006 Overview: ICD10 Diagnosis Term Adult Education Teacher Utility Esophageal reflux 12/27/2006 documented as of [...] hydration. H as an upcoming appointment with Aircraft Maintenance Instructor expert. She has noticed ankle swe lling after starting gabapentin. She follows up with DR. Kaufman for pain managemen t. Dr. Mina`s evaluation 12/08 Vicki Rcihardson is a 57 year old female with pmh as above presented for eval uation of muscle pain and swelling x 2yrs. Exam with some giveway weakness but h as RUE, RLE weakness at baseline 2/2 to rotator cuff injury and spondylosis. No MRI reports as in [facility] as she reports difficutly with insrunace approval for nallely e in [facility]. She does have elevated CK but has [...] to left ear daily. 30 g 2 oepqouqo-mrazxzxsx-lwqevxpikqvxym o[address] 3 Drops in left [...] ZYRTEC ORAL None Entered MULTI VIT W ZV-II-EIQ-LUT-THIO 0.2-1.5-0.5-50 MG ORAL TAB 1 tab daily [...] file Gets together: Not on file Attends adventism service: Not on file Active member of [...] Mother Hypertension Mother Respiratory Father Heart Father [place] Leukemia Maternal Grandmother Review of Systems Vital [...] Description Date Type Specialty Kathy Levin MD [address] [place] [phone] 10/13/2018 Office Visit Rheumatology Sam Jarvis [address] [place] [address] 12/22/2018 Office Visit Rheumatology Elisabet Resendiz MD [address] [place] [phone] 03/06/2019 Office Visit Neurology Order Schedule [...] ID Effective Phone Address Plan / Dates [facility] [id number] 2015-P [place] IHC resent documented as of this encounter Advance Directives Patient Dray Truck Driver Explanation Type Date Recorded Advance Directives and Living Will
--- OUTSIDE RECORDS SUMMARY | 2019-06-14 08:32 | XMS REPORT | Summary of Care ---
Author Author [facility] - Health Organization [facility] - Health Address Unknown Phone Unavailable Care Team Providers Care Psychological Aide Name Role Phone Jeremías Virk Unavailable Gianna Tuttle MD PCP Reason for Referral * MRI/CAT Scan (Routine) Referred By Contact Referred To Contact Status Reason Specialty Diagnoses / Procedures Elisabet Resendiz MD [address] [place] [address] New Request Diagnostic Diagnoses Radiology Right facial numbness P rocedures MR BRAIN W WO CONTRAST Reason for Visit * Reason Comments New Patient nerve pain in face * (Routine) Referred By Contact Referred To Contact Status Reason Specialty Diagnoses / Procedures Gianna Tuttle MD [address] [place] [address] Closed Neurology Diagnoses 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 H as an upcoming appointment with Front Office Spec expert. She has noticed ankle swe lling [...] and spondylosis. No MRI reports as in [facility] as she reports difficutly with insrunace approval for nallely e in [facility]. She does have elevated CK but has [...] to left ear daily. 30 g 2 larpsdpk-pknenzywv-jvmfieotopgjco otic solution Place 3 Drops in left [...] ZYRTEC ORAL None Entered MULTI VIT W QE-LV-OJU-LUT-THIO 0.2-1.5-0.5-50 MG ORAL TAB 1 tab daily [...] file Gets together: Not on file Attends temple service: Not on file Active member of [...] Mother Hypertension Mother Respiratory Father Heart Father [place] Leukemia Maternal Grandmother Review of Systems Vital [...] Description Date Type Specialty Kathy Levin MD [address] [place] [phone] 10/13/2018 Office Visit Rheumatology Sam Jarvis [address] [place] [address] 12/22/2018 Office Visit Rheumatology Elisabet Resendiz MD [address] [place] [phone] 03/06/2019 Office Visit Neurology Order Schedule [...] ID Effective Phone Address Plan / Dates [facility] [id number] 2015-P [place] IHC resent documented as of this encounter 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
--- OUTSIDE RECORDS SUMMARY | 2019-06-14 08:33 | XMS REPORT | Summary of Care ---
Author Author [facility] - Health Organization [facility] - [facility] Address Unknown Phone Unavailable Care Team Providers Care Plant Hr Manager Name Role Phone Jeremías Virk Unavailable Gianna Tuttle MD PCP Reason for Referral * (Routine) Referred By Contact Referred To Contact Status Reason Specialty Diagnoses / Procedures Zbigniew Vick MD [address] [place] [id number] New Request Location Rheumatology Diagnoses Preference Polyarthralgia P rocedures CONSULT/REFERRAL RHEUMATOLOGY Reason for Visit * Reason Comments Follow-up Fibromyalgia Encounter Details Care Team Description Date Type Department Zbigniew Vick MD [address] [place] [phone] Kathy Nova MD [address] [place] [phone] Polyarthralgia (Primary Dx); Fibromyalgia; Chronic fatigue; Elevated CK; Generalized OA; SOPHIE (obstructive sleep apnea); Neuropathic pain 10/13/2018 Office Visit [facility] Internal Medicine [facility] [address] [place] [address] Allergies Comments Active Allergy Reactions Severity Noted Date Heparin Nausea and/or 09/02/2015 Vomiting documented as of this encounter (statuses as of 10/17/2018) Medications End Date Status Medication Sig Dispensed Refills Start Date Active PEPTO-BISMOL 262 MG ORAL 1 by mouth 14 days 0 TAB two times a 7 day Active PROTONIX 40 MG ORAL TBEC 1 tab bid 0 Active MULTI VIT W 1 tab daily 0 WN-LS-KXR-LUT-THIO 0.2-1.5-0.5-50 MG ORAL TAB Active ZYRTEC ORAL [...] times daily as needed (4 grams). Active ezvgtkig-omtfnnmdc-vdrsup Place 3 Drops 10 mL 1 ortisone [...] as of this encounter (statuses as of 10/17/2018) Active Problems Problem Noted Date Polyarthralgia 06/10/2017 Generalized OA 06/10/2017 Chronic fatigue 06/10/2017 Falling hair 06/10/2017 Insomnia, persistent 06/10/2017 nursing home current use of non-steroidal anti-inflammatories (NSAID) 06/10/2017 Other disorder of menstruation and other abnormal bleeding from female 02/03/2007 genital tract Backache 12/28/2006 Overview: ICD10 Diagnosis Term Crate Tier Utility Esophageal reflux 12/27/2006 documented as of this encounter (statuses as of 10/17/2018) Social History Date Tobacco Use Types Packs/Day [...] - Given referral for Rheumatology outside of [facility] - may use Tylenol over the counter [...] Arthritis Foundation www.arthritis.org National Fibromyalgia Association www.fmaware.org [place] Fibromyalgia Syndrome Association www.afsafund.org Date Last Reviewed: 07/22/201719995859-2551 [employer] [address] [place] [address] 7. All rights reserved. This information is [...] also help with symptoms. Date Last Reviewed: 07/22/201719998602-6[address] [employer] [place] [address], [place], [place] [address] 7. All rights reserved. This information is [...] team approach. This may involve your pr [facility] care provider, a emergency veterinarian, a physical therapist, wolf mental healt h professional. For more information:National Warner of Arthritis and Musculoskeletal and S kin Diseases (NIAMS)www.niams.nih.gov 806-354-4956 When to seek medical advice Contact your healthcare provider right away if any of these occur: Symptoms getting worse or new symptoms developing You feel hopeless, helpless, or lose interest in day-to-day life Date Last Reviewed: 04/21/201619996530-2301 [employer] [address] [place] [address] 7. All rights reserved. 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 No weakn [...] Mother Hypertension Mother Respiratory Father Heart Father [place] Leukemia Maternal Grandmother Social History Socioeconomic History [...] file Gets together: Not on file Attends mormonism service: Not on file Active member of [...] to left ear daily. 30 g 2 uatalajd-uohjxpytu-smjfnthvvetxte otic solution Place 3 Drops in left [...] ZYRTEC ORAL None Entered MULTI VIT W MZ-SS-KHX-LUT-THIO 0.2-1.5-0.5-50 MG ORAL TAB 1 tab daily [...] 1.14 LFTs normal ISIDRO neg Sheila-1 neg SALES LEADER / Richard / SSA / SSB / [...] KATHY NOVA MD Rheumatology Fellow, PGY-5 Pager: [phone] documented in this encounter Plan of Treatment Care Team Description Date Type Specialty Sam Jarvis [address] [place] [address] 12/22/2018 Office Visit Rheumatology Elisabet Resendiz MD [address] [place] [address] 03/06/2019 Office Visit Neurology Health Maintenance Due [...] Procedure Name Priority Date/Time Associated Diagnosis VITAMIN D, 25-OH Routine 10/13/2018 Polyarthralgia 10:21 AM CDT ANTI-NUCLEAR ANTIBODY Routine 10/13/2018 Polyarthralgia SCREEN 10:21 AM CDT VITAMIN B12, LEVEL Routine 10/13/2018 Polyarthralgia 10:21 AM CDT MAGNESIUM Routine 10/13/2018 Polyarthralgia 10:21 AM CDT CREATINE KINASE Routine 10/13/2018 Polyarthralgia 10:21 AM CDT PHOSPHORUS Routine 10/13/2018 Polyarthralgia 10:21 AM CDT ALDOLASE Routine 10/13/2018 Polyarthralgia 10:21 AM CDT documented in this encounter Results * ANTI-NUCLEAR ANTIBODY SCREEN (10/13/2018 10:21 AM CDT) ISIDRO Negative Negative [facility] Specimen Blood Narrative Performed At Negative - No Anti-Nuclear Antibodies detected by IFA. [facility] Positive - ISIDRO IFA screen performed with a 1:80 dilution in adults and a 1:40 SERVICES dilution in pediatrics. Any ISIDRO "Positive" will have titer performed and reported separately. Performing Organization Address City/[facility] Cent[facility] Phone Number [facility] CLIA: [id number], [address] [place] [address] [facility] * PHOSPHORUS (10/13/2018 10:21 AM CDT) Pathologist [facility] PHOSPHORUS 3.8 2.5 - 5.0 mg/dL [facility] Specimen Blood Performing Organization Address [facility] Centercony Phone Number [facility] CLIA: [id number], [address] [place] [address] [facility] * MAGNESIUM (10/13/2018 10:21 AM CDT) Pathologist [facility] MAGNESIUM 2.2 1.7 - 2.4 mg/dL [facility] Specimen Blood Performing Organization Address City/[facility] Centercode Phone Number [facility] CLIA: [id number], [address] [place] [address] [facility] * ALDOLASE (10/13/2018 10:21 AM CDT) Pathologist [facility] ALDOLASE 4.2 1.5 - 8.1 U/L [facility] Comment: REFERENCE INTERVAL: Aldolase Access complete set of age- and/or gender-specific reference intervals for this test in the [facility] Laboratory Test Directory (beModel). Performed by [facility], [address] [place] [address] [email or web address], Clinton Arreaga MD, Lab. Director Specimen Blood Performing Organization Address City/[facility]/Zipcode Phone Number [facility] [address] [facility] [place] [address] * CREATINE KINASE (10/13/2018 10:21 AM CDT) CK 212 (H) 33 - 194 U/L [facility] Specimen Blood Performing Organization Address City/[facility]/Zipcode Phone Number [facility] CLIA: [id number], [address] [place] [address] [facility] * VITAMIN B12, LEVEL (10/13/2018 10:21 AM CDT) VIT B12 578 240 - 930 pg/mL [facility] Specimen Blood Narrative Performed At Biotin has been reported to cause a positive bias, interpret results relative to [facility] patient's use of biotin. SERVICES Performing Organization Address City/[facility]/Zipcode Phone Number [facility] CLIA: [id number], [address] [place] [address] [facility] * VITAMIN D, 25-OH (10/13/2018 10:21 AM CDT) VIT D 25OH 53 25 - 80 ng/mL [facility] 25-Hydroxy D3 50.7 ng/mL [facility] 25-Hydroxy D2 2.6 ng/mL [facility] Specimen Blood Narrative Performed At Test developed and characteristics determined by [facility]. 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
--- OUTSIDE RECORDS SUMMARY | 2019-06-14 08:33 | XMS REPORT | Summary of Care ---
Author Author [facility] [[email or web address] - Health Organization [facility] [[email or web address] - Health Address Unknown Phone Unavailable Care Team Providers Care Food And Beverage Order Clerk Name Role Phone Jeremías Virk Unavailable Gianna Tuttle MD PCP Reason for Visit * Reason Comments Rx Concern/Question Encounter Details Care Team Description Date Type Department Elisabet Resendiz MD [address] [place] [address] Rx Concern/Question 10/11/[address] [facility] Neurology[address] [address] Allergies Comments Active Allergy Reactions Severity Noted Date Heparin Nausea and/or 09/02/2015 Vomiting documented as of this encounter (statuses as of 10/24/2018) Medications End Date Status Medication Sig Dispensed Refills Start Date Active PEPTO-BISMOL 262 MG ORAL 1 by mouth 14 days 0 02/16/ TAB two times a 7 day Active PROTONIX 40 MG ORAL TBEC 1 tab bid 0 Active MULTI VIT W 1 tab daily 0 LL-VR-ISQ-LUT-THIO 0.2-1.5-0.5-50 MG ORAL TAB Active ZYRTEC ORAL [...] times daily as needed (4 grams). Active qvltdkqa-zsyekjxjo-pzlrvk Place 3 Drops 10 mL 1 ortisone [...] as of this encounter (statuses as of 10/24/2018) Active Problems Problem Noted Date Polyarthralgia 06/10/2017 Generalized OA 06/10/2017 Chronic fatigue 06/10/2017 Falling hair 06/10/2017 Insomnia, persistent 06/10/2017 residential current use of non-steroidal anti-inflammatories (NSAID) 06/10/2017 Other disorder of menstruation and other abnormal bleeding from female 02/03/2007 genital tract Backache 12/28/2006 Overview: ICD10 Diagnosis Term Turbinated Bone Grinder Utility Esophageal reflux 12/27/2006 documented as of this encounter (statuses as of 10/24/2018) Social History Date Tobacco Use Types Packs/Day [...] Description Date Type Specialty Sam Jarvis [address] [place] [address] [phone] 12/22/2018 Office Visit Rheumatology Elisabet Resendiz MD [address] [place] [address] 03/06/2019 Office Visit Neurology Health Maintenance Due [...] ID Effective Phone Address Plan / Dates [facility] [id number] 2015-P [place] IHC resent documented as of this encounter 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
[2019-06-14 09:20] LABS: BASOPHILS % 0.6 % (0.0-1.0); EOSINOPHILS # (AUTO) 0.2 (0.0-0.4); EOSINOPHILS % 3.2 % (0.0-6.0); HEMATOCRIT 40.6 % (34.2-44.1); HEMOGLOBIN 13.6 g/dL (12.0-16.0); LYMPHOCYTES % 46.2 % (18.0-39.1); MEAN CORPUSCULAR HEMOGLOBIN 32.1 pg (28-32); MEAN CORPUSCULAR HGB CONC 33.5 g/dL (31-35); MEAN CORPUSCULAR VOLUME 95.8 fL (81-99); MONOCYTES # (AUTO) 0.5 (0.2-0.8); MONOCYTES % 7.1 % (4.4-11.3); NEUTROPHILS # (AUTO) 2.8 (2.1-6.9); NEUTROPHILS % 42.7 % (38.7-80.0); PLATELET COUNT 359 x10e3/uL (140-360); RED BLOOD COUNT 4.24 x10e6/uL (3.6-5.1); RED CELL DISTRIBUTION WIDTH 13.2 % (11.7-14.4)
[2019-06-14 10:55] VITALS: BP 125/73
== END | disposition home or self-care (01) ==
LOC: OR 08:28
PROVIDERS: ATTEND Internal Medicine Gastroenterology
DX: K29.70 Gastritis, unspecified, without bleeding (principal); K31.89 Other diseases of stomach and duodenum; K21.9 Gastro-esophageal reflux disease without esophagitis; K44.9 Diaphragmatic hernia without obstruction or gangrene; K58.9 Irritable bowel syndrome, unspecified; N39.0 Urinary tract infection, site not specified; I11.0 Hypertensive heart disease with heart failure; I50.9 Heart failure, unspecified; I25.2 Old myocardial infarction; R00.0 Tachycardia, unspecified; F41.9 Anxiety disorder, unspecified; Z88.8 Allergy status to other drugs, medicaments and biological substances; Z86.73 Personal history of transient ischemic attack (TIA), and cerebral infarction without residual deficits
CPT/HCPCS: 36415; 43239; 85025; 93005; J2250; J2704; J3010